=== PATIENT | female | born 1960 | race Two or more races ===

== ENCOUNTER 2021-03-06 11:08 | Outpatient (REF) | payer OTHER, SELFPAY ==
[2021-03-06 12:19] LABS: Binax Internal Control QC Valid; Binax Now Covid-19 Ag Positive (Negative)
== END 2021-03-06 11:09 | disposition home or self-care (01) ==
LOC: HO.LAB 11:08
PROVIDERS: Visit Provider Internal Medicine
DX: Z20.822 Contact with and (suspected) exposure to COVID-19 (principal)
CPT/HCPCS: C9803

== ENCOUNTER 2021-03-14 07:50 | Outpatient (REF) | payer OTHER, SELFPAY ==
[2021-03-14 08:09] LABS: COVID-19 Test Positive (Negative); IDNOW Serial# 16C4AD1C
== END 2021-03-14 07:51 | disposition home or self-care (01) ==
LOC: HO.LAB 07:50
PROVIDERS: Visit Provider Internal Medicine
DX: Z20.822 Contact with and (suspected) exposure to COVID-19 (principal)
CPT/HCPCS: 87635; C9803

== ENCOUNTER 2021-07-30 07:10 | Outpatient (REF) | payer OTHER, SELFPAY ==
[2021-07-30 12:07] LABS: Alanine Aminotransferase 21 U/L (0-31); Anion Gap 12 (12-20); Aspartate Amino Transferase 18 U/L (5-31); Blood Urea Nitrogen 20 mg/dL (9-16); Carbon Dioxide 25 mmol/L (22-29); Chloride 106 mmol/L (96-108); Cholesterol 179 mg/dL; Estimated Glomerular Filt Rate > 60; Glucose Fasting 104 mg/dL (60-99); HDL Cholesterol 51 mg/dL; LDL Cholesterol Calculated 99 mg/dl; Potassium 4.3 mmol/L (3.3-5.1); Sodium 139 mmol/L (135-145); Triglycerides 148 mg/dL
[2021-07-30 12:10] LABS: HBS Num1 23.53 mIU/mL (0-7.99); ~Hepatitis B Surface Antibody REACTIVE (Nonreactive)
[2021-07-30 12:11] LABS: Vitamin D 25-OH Total 32.1 ng/mL (>30)
[2021-08-01 01:10] LABS: Rubella IgG Antibody 1.63 Index; Rubeola IgG (Measles) >300.00 AU/mL
[2021-08-01 01:17] LABS: Varicella IgG Antibody >4000.00 index
[2021-08-02 08:57] LABS: TS Negative Control Passed; TS Panel A 0; TS Panel B 0; TS Positive Control Passed; TSpotTB Negative (Negative)
== END 2021-07-30 07:11 | disposition home or self-care (01) ==
LOC: HO.HMGCLDS 07:10
PROVIDERS: PCP Internal Medicine; Visit Provider Internal Medicine
DX: Z00.01 Encounter for general adult medical examination with abnormal findings (principal); Z11.1 Encounter for screening for respiratory tuberculosis
CPT/HCPCS: 36415; 80048; 80061; 82306; 84450; 84460; 86481; 86706; 86735; 86762; 86765; 86787

== ENCOUNTER 2021-08-20 16:26 | Outpatient (REF) | payer OTHER, SELFPAY ==
--- NOTE | ~2021-08-20 | US_ITS ---
EXAMINATION: US ABDOMEN COMPLETE CLINICAL INFORMATION: Right upper quadrant pain. COMPARISON: None TECHNIQUE: Real-time imaging of the abdominal viscera., Doppler exam used FINDINGS: PANCREAS: Not seen due to bowel gas. ABDOMINAL AORTA: Portions of the mid abdominal aorta are normal. The proximal and distal aorta is obscured by bowel gas. INFERIOR VENA CAVA: Visualized portions are normal. LIVER: Mild diffuse increased echogenicity of liver parenchyma consistent with fatty change. The liver is normal in size. The liver contour is normal. No focal hepatic lesion. There is no intrahepatic biliary duct dilatation seen. GALLBLADDER: Normal. The gallbladder is physiologically distended without evidence of stones, sludge, polyps, wall thickening or pericholecystic fluid. COMMON BILE DUCT: Normal in caliber measuring 0.4 cm in diameter. RIGHT KIDNEY: Normal. No hydronephrosis. No renal calculi or suspicious focal parenchymal lesions. Anechoic cyst upper pole measuring 1.8 cm. No follow-up imaging is recommended for simple renal cyst. The kidney measures 9.1 cm in maximum dimension. LEFT KIDNEY: Mild fullness of the left renal pelvis without dilatation of the calyces. There is no renal calculi or suspicious focal parenchymal lesions. The kidney measures 9.8 cm in maximum dimension. SPLEEN: Normal. The spleen measures 10.3 cm in maximum dimension. FREE FLUID: None. US/US abdomen complete IMPRESSION: No acute abnormality. No gallstone or acute change of gallbladder wall. No bile duct dilatation. Mild diffuse increased echogenicity of liver parenchyma due to fatty change.
== END 2021-08-20 16:27 | disposition home or self-care (01) ==
LOC: HO.US 16:26
PROVIDERS: Visit Provider Internal Medicine
DX: R10.11 Right upper quadrant pain (principal)
CPT/HCPCS: 76700

== ENCOUNTER 2021-10-22 13:43 | Emergency (ER) | payer OTHER, SELFPAY ==
--- NOTE | ~2021-10-22 | CT_ITS ---
EXAMINATION: CT HEAD WITHOUT CONTRAST CLINICAL INFORMATION: Fall with head strike COMPARISON: None TECHNIQUE: Contiguous axial imaging was performed from the skull base to vertex without intravenous administration of contrast. This CT examination was performed using dose optimization techniques as appropriate, variously including the following: *Automated exposure control *Adjustment of mA and/or kV according to patient size (this includes techniques or standardized protocols for targeted exams where dose is matched to indication/reason for exam; i.e. extremities or head) *Use of iterative reconstruction technique DLP: 516 mGy-cm FINDINGS: There is no evidence of acute intracranial hemorrhage or territorial infarction. No abnormal mass-effect or midline shift is seen. Lam to white matter differentiation is well preserved. No extra-axial fluid collections are identified. The ventricles are normal in size. There is no abnormal attenuation within the brain parenchyma. Frontal scalp soft tissue swelling is noted. No acute fracture is seen. There is partial opacification of the left sphenoid sinus and right maxillary sinus. The mastoid air cells are well-aerated. CT/CT head/brain wo IV con IMPRESSION: No acute intracranial pathology. Frontal scalp soft tissue swelling.
[2021-10-22 13:59] VITALS: BP 105/55; PULSE 76; RESP 18; TEMP 530.9; TEMP 987.7; O2SAT 96; BMI 25.4
--- NOTE | 2021-10-22 16:16 | ED.FALL ---
HPI - Fall General Chief Complaint: Fall Stated Complaint: fell at work and hit head Time Seen by Provider: 10/22/21 14:43 Source: patient Mode of arrival: ambulatory Limitations: no limitations History of Present Illness HPI Narrative: 7-year-old female presents to the ER for evaluation of a head injury. She tripped and fell on a cord at work and fell and hit her head on a cement floor. She did not lose consciousness, it was witnessed by her coworkers. She sustained a small laceration to the lower portion of her forehead in the middle. No active bleeding. She also had immediate bruising to the middle of her forehead where she struck her head. She reports a diffuse, throbbing headache. She is not on anticoagulation. No other injuries. She denies any nausea, vomiting, confusion, lethargy. MD complaint: fall Onset (ago): hour(s) Fall from: standing Fall witnessed: yes, by bystander Place fall occurred: work Loss of consciousness: none Prolonged down time: no Context: tripped/slipped Location of injury: face Severity: moderate Severity scale (1-10): 5 Quality: aching Associated symptoms (after fall): headache Related Data Home Medications Medication Instructions Recorded Confirmed clonazepam 0.5 mg tablet 0.5 mg PO DAILY PRN anxiety attack 03/26/21 03/26/21 zolpidem 10 mg tablet 10 mg PO BEDTIME PRN 03/26/21 03/26/21 fluoxetine 20 mg capsule 60 mg PO QAM 07/25/21 Previous Rx's Medication Instructions Recorded ibuprofen 400 mg tablet 400 mg PO BID PRN pain #60 tabs 03/26/21 omeprazole 20 mg capsule,delayed 20 mg PO DAILY #90 caps 10/01/21 release ibuprofen 600 mg tablet 600 mg PO Q8H PRN pain #10 tabs 10/22/21 Allergies Allergy/AdvReac Type Severity Reaction Status Date / Time acetaminophen [From Percocet] AdvReac Gastrointestinal Verified 08/19/21 16:44 Upset oxycodone [From Percocet] AdvReac Gastrointestinal Verified 08/19/21 16:44 Upset Review of Systems Review of Systems: Constitutional: No Fever, No Chills ENT/Mouth: No sore throat, No dental trauma, no epistaxis Cardiovascular: No Chest Pain, No SOB Respiratory: No Cough, No Sputum Gastrointestinal: No Nausea, No Vomiting, No abdominal Pain Musculoskeletal: No joint pain, No Myalgias Skin: No Skin Lesions, No rash Neuro: No Weakness, No Numbness, No Dizziness, + Headache Heme/Lymph: + Bruising, No Lymphadenopathy PMFSH Past Medical History Medical History Chronic GERD Chronic insomnia Depression, major, recurrent, in partial remission Left femoral shaft fracture Trigger finger, left middle finger Family History Family History Brother Substance use disorder Daughter Mental health disorder Social History Social History Housing: House Patient Tobacco Use Status: Former Tobacco user e-Cigarette/Vaping Use: Never Used Advance Directives: No Advance Directives Information Provided: No service: No Current occupational status: employed Cognitive needs: No Hearing needs: No Vision needs: Yes Physical Exam Vital Signs: Vital Signs: Last Vital Signs Temp 987.7 F H 10/22/21 13:59 Pulse 67 10/22/21 16:41 Resp 12 10/22/21 16:41 BP 135/75 10/22/21 16:41 Pulse Ox 95 10/22/21 16:41 O2 Del Method 10/22/21 16:41 BMI result Body Mass Index 25.4 Appearance: Alert. Oriented X3. No acute distress. HEENT: Normal palpation of the scalp. Forehead with a moderate-sized, approximately 4 cm circular hematoma, tender. EOMI. Normal appearing tympanic membranes. Nose is normal in appearance, no septal hematoma. Tiny, 0.5cm laceration on the middle forehead below the hematoma, very superficial, no active bleeding. CVS: Normal heart rate and rhythm. Pulses normal. Respiratory: No respiratory distress. Skin: Skin warm and dry. Normal skin color. Normal skin turgor. No rashes. Extremities: Atraumatic, normal inspection. Neuro: Oriented X 3. No motor deficit. No sensory deficit. Steady gait Course Course Course Narrative: 7-year-old female presents to the ER for evaluation after she tripped and fell, hitting her head on the floor at work. She did not lose consciousness. She sustained a small laceration to her forehead and has a visible hematoma on examination. She is neurologically intact. Will get CT scan for further evaluation. Tylenol ordered for headache. Reevaluation(s) Reevaluation #1: CT scan without fractures, no ICH. Visible scalp frontal hematoma on CT. We discussed the results, management. She is stable for discharge home. Return precautions discussed. Discharge Plan Discharge Clinical Impression: Hematoma of frontal scalp Patient Disposition: Home, Self-Care Instructions: Scalp Contusion in Adults (ED) Additional Instructions: Your CT scan did not show any bleeding or any broken bones. Use ice to the area several times per day. Take the prescribed ibuprofen as needed for pain and headaches. Recommend around the clock Tylenol 9 hertz 25 mg every 6 hours Rest, no strenuous activity. Follow-up with her primary care doctor. If you develop new or worsening symptoms call 911 or come back to the ER for further evaluation. Prescriptions: New ibuprofen 600 mg tablet 600 mg PO Q8H PRN (Reason: pain) Qty: 10 0RF No Action omeprazole 20 mg capsule,delayed release(DR/EC) 20 mg PO DAILY Qty: 90 0RF clonazepam 0.5 mg tablet 0.5 mg PO DAILY PRN (Reason: anxiety attack) zolpidem 10 mg tablet 10 mg PO BEDTIME PRN ibuprofen 400 mg tablet 400 mg PO BID PRN (Reason: pain) Qty: 60 0RF fluoxetine 20 mg capsule 60 mg PO QAM Referrals: [facility] [Provider Group] Stand Alone Forms: Work/School Release
[2021-10-22 16:41] VITALS: BP 135/75; PULSE 67; RESP 12; O2SAT 95
[2021-10-22] MEDS: Acetaminophen 325 MG TABLET 975 MG PO (16:44)
--- NOTE | 2021-10-22 16:45 | PC.NURSE ---
Patient states she takes tylneol at home. Provider says to give tylenol despite allergy in chart
== END 2021-10-22 17:26 | disposition home or self-care (01) ==
PROVIDERS: Emergency Provider Emergency Medicine; PCP Internal Medicine
DX: S00.03XA Contusion of scalp, initial encounter (principal); S01.81XA Laceration without foreign body of other part of head, initial encounter; W01.198A Fall on same level from slipping, tripping and stumbling with subsequent striking against other object, initial encounter; Y93.89 Activity, other specified; Y92.218 Other school as the place of occurrence of the external cause; Y99.0 Civilian activity done for income or pay
CPT/HCPCS: 70450; 99283; 99284

== ENCOUNTER → 2021-10-25 10:44 | Outpatient (BNVA) | payer OTHER, SELFPAY | PROVIDERS: PCP Internal Medicine; Visit Provider Internal Medicine | DX: M25.511 Pain in right shoulder (principal); S06.0X9A Concussion with loss of consciousness of unspecified duration, initial encounter; W01.198A Fall on same level from slipping, tripping and stumbling with subsequent striking against other object, initial encounter | CPT/HCPCS: 73030; 73060; 99203 ==

== ENCOUNTER → 2021-11-01 08:06 | Outpatient (BNVA) | payer OTHER, SELFPAY | PROVIDERS: PCP Internal Medicine; Visit Provider Internal Medicine | DX: S06.0X9D Concussion with loss of consciousness of unspecified duration, subsequent encounter (principal); S43.401D Unspecified sprain of right shoulder joint, subsequent encounter; W01.198D Fall on same level from slipping, tripping and stumbling with subsequent striking against other object, subsequent encounter | CPT/HCPCS: 99214 ==

== ENCOUNTER → 2021-11-08 08:06 | Outpatient (BNVA) | payer OTHER, SELFPAY | PROVIDERS: PCP Internal Medicine; Visit Provider Internal Medicine | DX: M24.811 Other specific joint derangements of right shoulder, not elsewhere classified (principal) | CPT/HCPCS: 99213 ==

== ENCOUNTER → 2021-11-15 08:02 | Outpatient (BNVA) | payer OTHER, SELFPAY | PROVIDERS: PCP Internal Medicine; Visit Provider Internal Medicine | DX: S06.0X9D Concussion with loss of consciousness of unspecified duration, subsequent encounter (principal); W01.198D Fall on same level from slipping, tripping and stumbling with subsequent striking against other object, subsequent encounter; M24.811 Other specific joint derangements of right shoulder, not elsewhere classified | CPT/HCPCS: 99213 ==

== ENCOUNTER 2021-11-20 07:37 | Outpatient (REF) | payer OTHER, SELFPAY ==
--- NOTE | ~2021-11-20 | XR_ITS ---
EXAMINATION: XR SHOULDER, RIGHT CLINICAL INFORMATION: Right shoulder pain COMPARISON: 10/25/2021 TECHNIQUE: Three views of the right shoulder. FINDINGS: No fracture or dislocation. The glenohumeral joint is well aligned. The joint space is maintained. The acromioclavicular joint is intact. The visualized lung is clear. The visualized ribs are intact. XR/XR shoulder RT min 2V IMPRESSION: Normal right shoulder.
== END 2021-11-20 07:38 | disposition home or self-care (01) ==
LOC: HO.HOSX 07:37
PROVIDERS: Visit Provider Physician Assistant
DX: M75.81 Other shoulder lesions, right shoulder (principal)
CPT/HCPCS: 73030; 99202

== ENCOUNTER 2021-11-21 10:00 | Outpatient (RCR) | payer OTHER, SELFPAY ==
--- NOTE | 2021-11-06 15:51 | MHC.PT.EP ---
[facility] [place] [facility] Office [place] Office [place] Office [address] Kofi Cedeno [address] [phone] F: [phone] F: [phone] F: [phone] F: [phone] Physical Therapy Plan of Care Date of Evaluation: Date of Surgery: NA Diagnosis: R shoulder RTC injury Assessment: Cari is a 61 year old female who is referred to PT for R shoulder RTC injury . She reports of injuring her R shoulder due to a fall at work about 2 weeks back. She fell on her R shoulder. On PT examination she presented with 8/10 pain in R shoulder at rest and 10/10 with movements, TTP over R UT, R shoulder joint line, medial border of R scapula, decreased R shoulder ROM, decreased R shoulder and scap strength and altered posture. 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 She would benefit from skilled PT to address the aforementioned impairments and improve tolerance to functional activities. Frequency and Duration: The patient will be seen 2/week for 6 weeks Short Term Goals: 1. Pt will have 50% decrease in pain which will enable her to sleep through the night in 2 weeks. 2. Pt will be able to move R shoulder through all planes of motion which will enable her to dress her upper body in 3 weeks. Chcf Goals: 1. Pt will demonstrate an increase in muscle strength by 1 grade which will enable her to return to IADLS like cleaning and cooking in 5 weeks. 2. Pt will be independent with HEP and return to PLOF- teaching without pain in 6 weeks. Treatment Plan: Modalities to reduce pain, spasms and effusion. Manual therapy to restore motion and function. Therapeutic exercise to improve strength and flexibility. Neuromuscular re-education for posture and balance. Therapeutic activities to return to functional activities of daily living. Electronically signed by: Marsha Whittington PT DPT Please sign and return to therapist. Thank you for your referral.
--- NOTE | 2021-12-09 08:42 | MHC.PT.DC ---
[facility] Office [place] Office [place] Office [address] Kofi Cedeno [address] [phone] F: [phone] F: [phone] F: [phone] F: [phone] Physical Therapy Discharge Report Diagnosis: R shoulder RTC injury Date of Surgery: NA Date of Evaluation: 11/06/21 Date of Discharge: 12/09/21 Treatments to Date: 4 Cancellations to Date: 3 No Shows to Date: 1 Discharge Status: Improved Function Independent with HEP Patient Elected to Stop Discharge Summary: Pt RESPONDED WELL TO PT INTERVENTION FOR HER Rt RTC/ SH INJURY- SHE IS INDEP W HEP AND SELF-POSTURAL CORRECTION- SHE HAS BEEN CLEARED TO RTW. Pt STATED HER PAIN HAS RESOLVED AND SHE IS INDEP W HER HEP AND HAS A DECENT AWARENESS RE THE IMPORTANCE OF HEP COMPLIANCE - Pt HAS NOT ATTENDED PT APPTS SINCE RTW. Electronically signed by: Maddie Alonzo,PT Please sign and return to therapist. Thank you for your referral.
== END 2021-12-09 08:44 | disposition home or self-care (01) ==
LOC: HO.PT 10:00
PROVIDERS: PCP Internal Medicine; Visit Provider Internal Medicine
DX: S46.001D Unspecified injury of muscle(s) and tendon(s) of the rotator cuff of right shoulder, subsequent encounter (principal)
CPT/HCPCS: 97110; 97112; 97140; 97161

== ENCOUNTER → 2021-11-22 08:07 | Outpatient (BNVA) | payer OTHER, SELFPAY | PROVIDERS: PCP Internal Medicine; Visit Provider Internal Medicine | DX: S06.0X9D Concussion with loss of consciousness of unspecified duration, subsequent encounter (principal); W01.198D Fall on same level from slipping, tripping and stumbling with subsequent striking against other object, subsequent encounter | CPT/HCPCS: 99213 ==

== ENCOUNTER 2021-12-18 15:55 | Outpatient (REF) | payer OTHER, SELFPAY ==
[2021-12-18 16:59] LABS: Lipase 38 U/L (8-78)
[2021-12-20 14:52] LABS: Transglutaminase Ab IgG <1.0 U/mL; Transglutaminase IgA <1.0 U/mL
== END 2021-12-18 15:56 | disposition home or self-care (01) ==
LOC: HO.LAB 15:55
PROVIDERS: PCP Internal Medicine; Visit Provider Nurse Practitioner Family
DX: R10.9 Unspecified abdominal pain (principal)
CPT/HCPCS: 36415; 83690; 86364

== ENCOUNTER 2021-12-19 07:31 | Outpatient (REF) | payer OTHER, SELFPAY ==
[2021-12-28 16:51] LABS: Pancreatic Elastase-1 >500 mcg/g
== END 2021-12-19 07:32 | disposition home or self-care (01) ==
LOC: HO.LNP 07:31
PROVIDERS: Visit Provider Nurse Practitioner Family
DX: R10.9 Unspecified abdominal pain (principal); K21.9 Gastro-esophageal reflux disease without esophagitis
CPT/HCPCS: 82656; 87338

== ENCOUNTER 2022-05-04 07:47 | Emergency (ER) | payer OTHER, SELFPAY ==
--- NOTE | ~2022-05-04 | XR_ITS ---
EXAMINATION: XR CHEST CLINICAL INFORMATION: Chest pain COMPARISON: None TECHNIQUE: 2 views of the chest were obtained. FINDINGS: No significant abnormality is noted involving the heart, lungs, mediastinum, bony thorax or soft tissues. XR/XR chest 2V IMPRESSION: Unremarkable examination.
[2022-05-04 07:50] VITALS: BP 135/68; PULSE 80; RESP 18; TEMP 37.4; O2SAT 96; BMI 23.8
--- NOTE | 2022-05-04 08:42 | ED.URI ---
HPI - URI/Sore Throat General Chief Complaint: Upper Respiratory Symptoms Stated Complaint: Chest pain/Fever/Cough Time Seen by Provider: 05/04/22 08:03 Source: patient Mode of arrival: ambulatory History of Present Illness HPI Narrative: 62-year-old female presents with headache, fevers, chills, ear pain and throat pain and persistent cough since . Patient states that she has had increasing chest pain with coughing and states that she hears herself wheezing . Related Data Home Medications Medication Instructions Recorded Confirmed zolpidem 10 mg tablet 10 mg PO BEDTIME PRN 03/26/21 03/26/21 fluoxetine 20 mg capsule 60 mg PO QAM 07/25/21 amitriptyline 25 mg tablet 25 mg PO BEDTIME 11/20/21 clonazepam 0.5 mg tablet 0.5 mg PO DAILY PRN 02/05/22 Previous Rx's Medication Instructions Recorded esomeprazole magnesium 40 mg 40 mg PO DAILY #90 caps 12/17/21 capsule,delayed release (Nexium) famotidine 40 mg tablet 40 mg PO BEDTIME #90 tabs 12/17/21 sennosides 8.6 mg tablet (Natural 17.2 mg PO BEDTIME constipation 02/05/22 Senna Laxative) #180 tabs doxycycline monohydrate 100 mg 100 mg PO BID 5 days #10 caps 05/04/22 capsule Allergies Allergy/AdvReac Type Severity Reaction Status Date / Time oxycodone [From Percocet] AdvReac Gastrointestinal Verified 02/05/22 13:17 Upset Review of Systems Review of Systems: Pertinent positives and negatives as stated in HPI [facility] Past Medical History Source: nursing notes reviewed Medical History Chronic GERD Chronic insomnia Depression, major, recurrent, in partial remission Left femoral shaft fracture Trigger finger, left middle finger Surgical History History of esophagogastroduodenoscopy (EGD) Hx of colonoscopy Family History Family History Brother Substance use disorder Daughter Mental health disorder Social History Social History Housing: House Patient Tobacco Use Status: Former Tobacco user Smoked in Last 30 Days: No e-Cigarette/Vaping Use: Never Used Use of substances other than those prescribed or required for medical reasons: No Advance Directives: No Advance Directives Information Provided: Yes service: No Current occupational status: employed 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 GENERAL: Well developed, well nourished, in no acute distress. HEAD: Normocephalic/atraumatic EYES: PERRLA, EOMI EARS: Ext canals without abnormality, TMs non-bulging and non-erythematous NOSE: Nares patent bilateral OROPHARYNX: no oral lesions noted, posterior pharynx clear but erythematous without noted tonsillar enlargement/erythema/exudates NECK: Supple, no adenopathy LUNGS: Good inspiratory effort, coarse rhonchi and crackles noted without expiratory wheeze, discomfort noted on deep inspiration. SpO2<96> CARDIOVASCULAR: Regular rate and rhythm without noted murmurs ABDOMEN: Soft, non-tender, non-distended with bowel sounds. MUSCULOSKELETAL: No tenderness, deformities, or effusions noted on gross inspection. EXTREMITIES: No cyanosis, clubbing or edema. SKIN: Inspection of the skin reveals no rashes NEUROLOGIC: Alert and oriented x 4. Strength and sensation to light touch were grossly intact x 4. Medical Decision Making Medical Decision Making [facility] Narrative: 0845: 62-year-old female with persistent fevers and chills since and cough related chest pain, will rule out pleurisy verses infection I reviewed all investigations, clinically patient has pneumonia and although the chest x-ray is being read as negative patient has rhonchi and crackles and I will empirically treat her for pneumonia. Patient will go home on twice daily doxycycline for 5 days. Differential Diagnosis please see the discussion above Lab Data Labs: Lab Results 05/04/22 Range/Units 08:00 Influenza Type A (PCR) NEGATIVE (Negative) Influenza Type B (PCR) NEGATIVE (Negative) RSV RNA Qual (PCR) NEGATIVE (Negative) SARS-CoV-2 RNA (RT-PCR) NEGATIVE (Negative) Discharge Plan Discharge Clinical Impression: Community acquired pneumonia Patient Disposition: Home, Self-Care Instructions: Community Acquired Pneumonia (ED) Additional Instructions: 1. Resume all home medications as prescribed. Your being prescribed an antibiotic for pneumonia, complete the entire course. 2. Tylenol 1000 mg, orally, every 6 hours as needed for pain control and temperatures greater than 100.4. Do not exceed 4000 mg within 24 hours. 3. Ibuprofen 400 mg, orally with milk or food, every 6 hours as needed for pain control and temperatures greater than 100.4. Please take this medication with the Tylenol for improved symptom relief. 4. Follow-up with your primary care provider in the morning. Return to the ER for any worsening symptoms. Prescriptions: New doxycycline monohydrate 100 mg capsule 100 mg PO BID 5 Days Qty: 10 0RF No Action zolpidem 10 mg tablet 10 mg PO BEDTIME PRN fluoxetine 20 mg capsule 60 mg PO QAM amitriptyline 25 mg tablet 25 mg PO BEDTIME esomeprazole magnesium [Nexium] 40 mg capsule,delayed release(DR/EC) 40 mg PO DAILY Qty: 90 5RF famotidine 40 mg tablet 40 mg PO BEDTIME Qty: 90 3RF clonazepam 0.5 mg tablet 0.5 mg PO DAILY PRN sennosides [Natural Senna Laxative] 8.6 mg tablet 17.2 mg PO BEDTIME Qty: 180 3RF Referrals: Kassy Anna MD [Primary Care Provider] -
[2022-05-04 08:44] LABS: Influenza A PCR NEGATIVE (Negative); Influenza B PCR NEGATIVE (Negative); Resp Syncy Virus RNA Qual PCR NEGATIVE (Negative); SARS COV2 PCR INHOUSE NEGATIVE (Negative)
[2022-05-04 09:39] VITALS: BP 114/63; PULSE 78; RESP 20; TEMP 37.6; O2SAT 95
== END 2022-05-04 09:53 | disposition home or self-care (01) ==
PROVIDERS: Emergency Provider Student in an Organized Health Care Education/Training Program; PCP Internal Medicine
DX: J18.9 Pneumonia, unspecified organism (principal); R50.9 Fever, unspecified; R05.9 Cough, unspecified; R07.89 Other chest pain; Z20.822 Contact with and (suspected) exposure to COVID-19; Z20.828 Contact with and (suspected) exposure to other viral communicable diseases; Z87.891 Personal history of nicotine dependence; Z79.899 Other long term (current) drug therapy
CPT/HCPCS: 0241U; 71046; 99283; 99284

== ENCOUNTER → 2022-06-13 15:58 | Outpatient (BNVA) | payer OTHER, SELFPAY | PROVIDERS: PCP Internal Medicine; Visit Provider Nurse Practitioner Family | DX: Z13.89 Encounter for screening for other disorder (principal) ==

== ENCOUNTER → 2022-07-09 07:57 | Outpatient (REF) | payer OTHER, SELFPAY ==
--- NOTE | ~2022-07-09 | NM_ITS ---
EXAMINATION: RADIONUCLIDE SOLID FOOD GASTRIC EMPTYING 4-HOUR STUDY CLINICAL INFORMATION: There is esophageal reflux disease without esophagitis. COMPARISON: No previous gastric emptying study is available for comparison. TECHNIQUE: A standard meal consisting of 4 oz of Egg Beaters brand tagged with 840 microcuries Tc-99m Sulfur Colloid, 8 oz water and 2 slices of toast with jelly was administered orally to the patient. Images were obtained using a dual head gamma camera in the anterior and posterior projections over of the stomach immediately post ingestion and at hourly intervals up to 3 hours post ingestion. Images were not obtained at 4 hours due to the minimal retention at 3 hours. The anterior and posterior counts at each time interval were averaged using the geometric mean and expressed as percentage of the immediate post ingestion counts. FINDINGS: There is good visualization of activity in the stomach immediately post ingestion. As the study progresses, there is good clearance of activity from the stomach and visualization of progressively increasing small bowel activity. By the end of the study, there is almost no retention noted in the stomach. Retention in the stomach at each time interval was: 1 hour 67% (normal 37%-90%) 2 hours 35% (normal 30%-60%) 3 hours 4% 4 hours (Not Obtained) (normal 0%-10%) NM/NM gastric emptying study IMPRESSION: Normal solid food gastric emptying study.
== END ==
LOC: HO.NUCMED 07:57
PROVIDERS: PCP Internal Medicine; Visit Provider Nurse Practitioner Family
DX: K21.9 Gastro-esophageal reflux disease without esophagitis (principal)
CPT/HCPCS: 78264; A9541

== ENCOUNTER 2022-08-05 07:46 | Outpatient (REF) | payer OTHER, SELFPAY ==
[2022-08-05 11:57] LABS: Alanine Aminotransferase 22 U/L (0-31); Anion Gap 13 (12-20); Aspartate Amino Transferase 22 U/L (5-31); Blood Urea Nitrogen 18 mg/dL (9-16); Calcium 9.4 mg/dL (8.4-10.2); Carbon Dioxide 27 mmol/L (22-29); Chloride 105 mmol/L (96-108); Cholesterol 189 mg/dL; Estimated Glomerular Filt Rate > 60; Glucose Fasting 94 mg/dL (60-99); HDL Cholesterol 58 mg/dL; LDL Cholesterol Calculated 109 mg/dl; Potassium 4.6 mmol/L (3.3-5.1); Sodium 140 mmol/L (135-145); Triglycerides 112 mg/dL
[2022-08-05 12:04] LABS: Vitamin D 25-OH Total 50.6 ng/mL (>30)
== END 2022-08-05 07:47 | disposition home or self-care (01) ==
LOC: HO.HMGCLDS 07:46
PROVIDERS: PCP Internal Medicine; Visit Provider Internal Medicine
DX: Z00.01 Encounter for general adult medical examination with abnormal findings (principal); F33.41 Major depressive disorder, recurrent, in partial remission; K21.9 Gastro-esophageal reflux disease without esophagitis
CPT/HCPCS: 36415; 80048; 80061; 82306; 84450; 84460

== ENCOUNTER 2022-09-05 15:04 | Outpatient (AMB) | payer OTHER, SELFPAY ==
--- NOTE | 2022-09-05 15:18 | A.OFFVIS_ITS ---
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 Discussed with patient avoiding dietary triggers and late night snacking. Staying upright for minimum 3 hours after meals discussed with patient. Early satiety Patient reports to be feeling bloated and feeling full very quickly a when the eating or drinking. Will send her for gastric emptying study. Patient was encouraged to eat small meals and more often Postprandial abdominal bloating Postprandial abdominal bloating. Patient reports that she is moving her bowels better now that she is taking Senokot. Patient was encouraged to avoid food that could cause to bloating. Low FODMAP diet discussed with patient. List of food recommended as well as list of food to avoid given to patient. I will see patient in 3 months, sooner on as needed basis. Patient is agreeable to this plan and verbalizes understanding of instructions. She was given the opportunity to ask questions and all questions answered. ? Thank you for allowing me to participate in her care Plan Orders Orders NM gastric emptying study 06/13/22 K21.9 TODAY'S VISIT: Today for follow-up. Patient reports since last time I have seen her she has been doing better. Patient was switched from pantoprazole to Nexium and is doing well. Denies any dyspepsia, dysphagia or odynophagia. Patient no longer needs famotidine she can take it on as needed basis. Gastric emptying study was normal. Patient reports that she is moving her bowels better now that she is taking Senokot. Patient denies any melena, hematochezia, unintentional weight loss or ribbon like stools. Patient denies any other GI concerning symptoms. 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 Cognitive needs: No Hearing needs: No Vision needs: Yes Review of Systems Const Denies weight gain and Denies weight loss ENT Reports no additional complaints, Denies dysphagia and Denies odynophagia Card Reports no additional complaints Resp Reports no additional complaints GI Denies abdominal pain, Denies belching, Denies melena, Denies bloating, Denies change in bowel habits, Denies dysphagia, Denies excessive flatus, Denies dyspepsia, Denies heartburn, Denies diarrhea, Denies loose stools, Denies nausea, Denies odynophagia and Denies vomiting Musc Reports no additional complaints Neuro Reports no additional complaints Psych Reports no additional complaints Endo Reports no additional complaints Physical Exam Vital Signs: Last Vital Signs Pulse 62 09/05/22 15:19 BP 124/67 09/05/22 15:19 BMI result Body Mass Index 23.2 Const General: healthy appearing, no acute distress and well developed Nutritional Appearance: well nourished Orientation/consciousness: patient oriented x3 HEENT Head: Yes normal to inspection, Yes normocephalic and Yes atraumatic Face and sinus: Yes normal facial exam Mouth: Normal oral and palatal mucosa present Throat: Yes posterior oropharynx normal, Yes tonsils normal and Yes uvula midline Eyes General: appearance normal, both eyes and all related structures Neck Neck: Yes normal visual inspection, Yes full ROM and Yes trachea midline Thyroid: Thyroid normal Resp Effort & Inspection: normal respiratory effort, able to speak in complete sentences, no tracheal deviation and symmetric chest movement Auscultation: clear to auscultation bilaterally Cardio Rate: regular rate Heart sounds: S1 normal heart sound present and S2 normal heart sound present GI Inspection: Yes normal to inspection and No distended Palpation (GI): Soft to palpation, not firm, nontender and No hepatosplenomegaly present Auscultation: normal bowel sounds General: Yes no CVA tenderness Back/Spine/Pelvis Back: no CVA tenderness Skin General skin exam: elasticity normal, turgor normal and dry skin Neuro General: patient oriented x3 Psych Appearance: grossly normal Mental Status: mental status grossly normal Speech and movement: Normal speech and movement present Affect: normal affect Results Reviewed Results Reviewed: GASTRIC EMPTYING STUDY 07/09/2022 FINDINGS: There is good visualization of activity in the stomach immediately post ingestion. As the study progresses, there is good clearance of activity from the stomach and visualization of progressively increasing small bowel activity. By the end of the study, there is almost no retention noted in the stomach. ? Retention in the stomach at each time interval was: 1 hour 67% (normal 37%-90%) 2 hours 35% (normal 30%-60%) 3 hours 4% 4 hours (Not Obtained) (normal 0%-10%) NE/NE gastric emptying study IMPRESSION: Normal solid food gastric emptying study. Assessment & Plan Assessment & Plan (1) Chronic GERD: Code(s): K21.9 - Gastro-esophageal reflux disease without esophagitis Plan: Patient was encouraged to continue Nexium. Patient will continue to avoid dietary triggers and late night snacking. Staying upright for minimum 3 hours after meals discussed with patient. (2) Postprandial abdominal bloating: Code(s): R14.0 - Abdominal distension (gaseous) Plan: Occasional postprandial abdominal bloating. Discussed with patient following FODMAP diet as much as she can. Importance of emptying her bowels better discussed with patient. Patient was encouraged to drink plenty fluids (3) Constipation: Code(s): K59.00 - Constipation, unspecified Qualifiers: Constipation type: slow transit constipation Qualified Code(s): K59.01 - Slow transit constipation Plan: Continue Senokot. Increase fluid intake and activity to promote better bowel motility. Patient will follow-up with the office in 6 months we will discuss her going for colonoscopy, sooner on as needed basis. Patient is agreeable to this plan and verbalizes understanding of instructions. She was given the opportunity to ask questions and all questions answered. Thank you for allowing me to participate in her care Medications: Refilled esomeprazole magnesium (Nexium) 40 mg PO DAILY 90 caps 5RF K21.9 - Gastro- esophageal reflux disease without esophagitis sennosides (Natural Senna Laxative) 17.2 mg (2 x 8.6 mg) PO BEDTIME 180 tabs 3RF constipation K59.00 - Constipation, unspecified Coding Level of Care Code Est Pt Level 3 (23964) Diagnoses Chronic GERD K21.9 Postprandial abdominal bloating R14.0 Constipation K59.01 Constipation type: slow transit constipation Time Spent (min) 30 Comment 20 minutes spent with patient and additional 10 minutes spent reviewing her records
[2022-09-05 15:19] VITALS: BP 124/67; PULSE 62; BMI 23.2
== END 2022-09-05 15:38 | disposition home or self-care (01) ==
PROVIDERS: PCP Internal Medicine; Visit Provider Nurse Practitioner Family
DX: K21.9 Gastro-esophageal reflux disease without esophagitis (principal); R14.0 Abdominal distension (gaseous); K59.01 Slow transit constipation
CPT/HCPCS: 99213

== ENCOUNTER → 2022-09-05 15:04 | Outpatient (BNVA) | payer OTHER, SELFPAY | PROVIDERS: PCP Internal Medicine; Visit Provider Nurse Practitioner Family ==

== ENCOUNTER 2022-09-23 08:05 | Outpatient (AMB) | payer OTHER, SELFPAY ==
--- NOTE | 2022-09-23 08:07 | AM.OFFWIN_ITS ---
Intake Vital Signs 09/23/22 08:10 BP 112/76 Blood Pressure Location Rt brachial Position Sitting Pulse 66 Pulse Source Pulse Oximeter Pulse Oximetry (%) 96 Oxygen Delivery Method Room Air Intake Visit Reasons: EP Pain Ribs LT/Diff Breathing Intake Note: Patient here because she states she had a friend hug her very tight on thursday and heard a crack and since then she has been having left rib pain when moving and breathing. Patient Tobacco Use Status: Former Tobacco user Allergies oxycodone [From Percocet] Adverse Reaction (Verified 09/23/22 08:10) Gastrointestinal Upset Do you need a note to return to daycare/school/sports/work: Yes HPI EP Pain Ribs LT/Diff Breathing 2 HPI Details 62-year-old female presents to the office for a sick visit. Patient is feeling a sharp pain on the left side since 2 days. Patient reports that she was hugged tightly and symptoms started later. She felt a crack and then is having difficulty taking a deep breath. No fevers or chills. 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 Tenderness on the left side of the chest along the Coastal margins of the ribs. Resp Effort & Inspection: normal respiratory effort Neuro General: patient oriented x3 Assessment & Plan Assessment & Plan (1) Contusion of rib on left side: Code(s): S20.212A - Contusion of left front wall of thorax, initial encounter Plan: X-ray reviewed by me personally. No fracture or pneumothorax seen. Anti- inflammatories given. Note for work given. Orders: Orders XR ribs LT min 3V w CXR1V Today S20.212A - Contusion of left front wall of thorax, initial encounter Coding Level of Care Code Est Pt Level 4 (12006) Diagnoses Contusion of rib on left side S20.212A
[2022-09-23 08:10] VITALS: BP 112/76; PULSE 66; O2SAT 96
== END 2022-09-23 09:56 | disposition home or self-care (01) ==
PROVIDERS: PCP Internal Medicine; Visit Provider Internal Medicine
DX: S20.212A Contusion of left front wall of thorax, initial encounter (principal)
CPT/HCPCS: 99214

== ENCOUNTER 2022-09-23 08:26 | Outpatient (REF) | payer OTHER, SELFPAY ==
--- NOTE | ~2022-09-23 | XR_ITS ---
EXAMINATION: XR RIBS, RIGHT, PA CHEST CLINICAL INFORMATION: Left chest wall pain. COMPARISON: Chest radiographs dated 05/04/2022. TECHNIQUE: 3 views of the right ribs were obtained along with a PA view of the chest. FINDINGS: Lungs are clear. No consolidation, pneumothorax, or pleural effusion. The cardiomediastinal silhouette and pulmonary vasculature are normal. Osseous structures are unremarkable. Ribs are intact. No fractures are identified. XR/XR ribs LT min 3V w CXR1V IMPRESSION: Unremarkable examination.
== END 2022-09-23 08:27 | disposition home or self-care (01) ==
LOC: HO.HMGCX 08:26
PROVIDERS: PCP Internal Medicine; Visit Provider Internal Medicine
DX: S20.212A Contusion of left front wall of thorax, initial encounter (principal)
CPT/HCPCS: 71101

== ENCOUNTER 2023-01-20 10:26 | Outpatient (AMB) | payer OTHER, SELFPAY ==
--- NOTE | 2023-01-20 10:45 | A.OFFPC_ITS ---
Vital Signs 01/20/23 10:49 Height 5 ft Weight 121 lb BMI 23.6 BP 124/76 Blood Pressure Location Rt brachial Position Sitting Pulse 71 Pulse Source Pulse Oximeter Pulse Oximetry (%) 97 Oxygen Delivery Method Room Air Intake Visit Reasons: High Blood Sugar Follow Up Intake Note: pt tested her BS with her fathers glucose monitor this AM and it was 113 pt had not eaten pt says she has been light headed and dizzy for the past few weeks and she says when she has tested in the past her fasting has been 80-90's Allergies oxycodone [From Percocet] Adverse Reaction (Verified 01/20/23 11:25) Gastrointestinal Upset Medication List - Last Reconciled 01/20/23 by Kassy Anna MD esomeprazole magnesium (Nexium) 40 mg PO DAILY fluoxetine 20 mg PO QAM sennosides (Natural Senna Laxative) 17.2 mg (2 x 8.6 mg) PO BEDTIME zolpidem 10 mg PO BEDTIME PRN Tobacco use date assessed: 01/20/23 Dental Screening Dental Screen Date: 01/20/23 Did you have a dental visit in the last 12 months?: Yes Did you have a dental problem in the last 6 months where you did not have access to dental care?: No Was dental information given to patient?: Patient has dentist HPI High Blood Sugar Follow Up HPI Details 62-year-old lady here today complaining of intermittent episodes of dizziness, facial pressure and sinus congestion, which has been present now for the last several days. Denies any accompanying fever, no ringing in the ears, no shortness of breath or cough. Patient did a fingerstick today using her father's glucometer and she states that her fasting glucose was 113 mg per dL and is afraid that she might be a diabetic like her father. Her hemoglobin A1c done today at the clinic is at 5.6% with a fasting glucose of 114 mg/dl. 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 Depression Screening Interpretation: Positive (followed at [facility] in [place]) Depression Screening Done: Yes Source: Developed by Drs. Avila Cox, Carrol Miranda, Magdaleno Remy and colleagues, with an educational mindy from [employer]. Thrive Questionnaire Date Thrive assessed: 07/31/22 LEONARDO-7 AMB Questionnaire LEONARDO-7 Date LEONARDO - 7 assessed: 07/31/22 Source: Developed by Drs. Avila Cox, Carrol Miranda, Magdaleno Remy and colleagues, with an educational mindy from [employer]. Review of Systems Const Reports as per HPI, Reports no additional complaints, Denies fatigue and Reports headache(s) (Frontal) Eyes Denies change in vision ENT Reports Normal hearing present, Denies otalgia, Reports headache(s) (Frontal), Reports nasal congestion, Denies nose pain, Reports disequilibrium, Reports post nasal drip, Reports sinus pain, Reports sinus pressure, Denies sore throat and Denies throat swelling Card Reports no additional complaints Resp Reports no additional complaints Neuro Reports Normal hearing present, Reports headache(s) (Frontal) and Reports disequilibrium Endo Denies fatigue, Denies polyphagia, Denies polydipsia and Denies polyuria Aller/Immun Denies throat swelling Physical exam (Primary Care) Vital Signs: Last Vital Signs Pulse 71 01/20/23 10:49 BP 124/76 01/20/23 10:49 Pulse Ox 97 01/20/23 10:49 Oxygen Delivery Method Room Air 01/20/23 10:49 BMI result Body Mass Index 23.6 Tobacco/Smoking Status: Tobacco use Status Tobacco use date assessed 01/20/23 01/20/23 10:54 Patient Tobacco Use Status Former Tobacco user 01/20/23 10:45 e-Cigarette/Vaping Use Never Used 01/20/23 10:45 Depression Screening Interpretation: Positive (followed at [facility] in [place]) Thrive Assessment: Date of Thrive Assessment Date Thrive assessed 07/31/22 01/20/23 10:45 Const General: comfortable, no acute distress and alert Orientation/consciousness: patient oriented x3 Limitations: no limitations HENMT Ears: external ears normal, TM's normal bilaterally and EAC's normal General nose exam: Normal external nose present, No nasal discharge present and Abnormal mucous membranes and turbinates present erythematous Face and sinus: Yes sinus tenderness (Maxillary areas bilateral) Mouth: Normal oral and palatal mucosa present, oropharynx normal and moist mucous membranes Eyes General: appearance normal, both eyes and all related structures Neck Neck: Yes full ROM, Yes no lymphadenopathy and Yes supple Resp Effort & Inspection: normal respiratory effort and able to speak in complete sentences Auscultation: clear to auscultation bilaterally Cardio Rate: regular rate Rhythm: regular rhythm Heart sounds: S1 normal heart sound present and S2 normal heart sound present Skin General skin exam: no rashes or lesions noted Neuro General: patient oriented x3, tone normal, moves all extremities, Normal light touch and pain sensation and no focal motor deficits Cranial nerves: Yes Normal hearing present Extrem General: Yes full ROM, Yes no joint enlargement, Yes no clubbing, cyanosis or edema, Yes no calf tenderness and Yes normal gait Psych Appearance: grossly normal and well kempt Mental Status: mental status grossly normal Speech and movement: Normal speech and movement present Affect: normal affect Attitude: cooperative Thought process: Normal thought process present Thought content: Normal thought content present Results AMB Random Glucose (hemocue) AMB Random Glucose (hemocue) 114 mg/dL Last Edit by Le Leong CMA o n 01/20/23 11:06 AMB Hemoglobin A1c AMB Hemoglobin A1c 5.6 % Last Edit by Le Leong CMA on 01/20/23 11: 12 Results Reviewed Results Reviewed: Laboratory Last Values Random Glu (Clinic) 114 mg/dL 01/20/23 11:03 Hgb A1c (Clinic) 5.6 % (4.0-6.0) 01/20/23 11:03 Assessment and Plan Assessment & Plan (1) Impaired fasting glucose: Code(s): R73.01 - Impaired fasting glucose Plan: Your fasting blood sugars elevated above 100 mg/dL. Impaired glucose metabolism O2 at risk for developing diabetes mellitus type 2, as well as heart attack and stroke later on. Lifestyle changes at just weight loss, healthy eating habits, and regular exercise are important, and can prevent the progression to diabetes (2) Acute sinusitis: Code(s): J01.90 - Acute sinusitis, unspecified Plan: Prescription sent for amoxicillin 875 mg per capsule to take 1 every 12 hours for 10 days. Return to clinic if no improvement of symptoms after week Orders: Orders AMB Random Glucose (hemocue) Today Z13.9 - Encounter for screening, unspecified AMB Hemoglobin A1c Today Z13.9 - Encounter for screening, unspecified Aspartate Amino Transferase 07/25/23 E89.40 - Asymptomatic postprocedural ovarian failure, F33.41 - Major depressive disorder, recurrent, in partial remission, F51.04 - Psychophysiologic insomnia, K21.9 - Gastro-esophageal reflux disease without esophagitis, R73.01 - Impaired fasting glucose, Z13.1 - Encounter for screening for diabetes mellitus, Z13.220 - Encounter for screening for lipoid disorders Lipid Panel 07/25/23 E89.40 - Asymptomatic postprocedural ovarian failure, F33.41 - Major depressive disorder, recurrent, in partial remission, F51.04 - Psychophysiologic insomnia, K21.9 - Gastro-esophageal reflux disease without esophagitis, R73.01 - Impaired fasting glucose, Z13.1 - Encounter for screening for diabetes mellitus, Z13.220 - Encounter for screening for lipoid disorders Basic Metabolic Panel Fasting 07/25/23 E89.40 - Asymptomatic postprocedural ovarian failure, F33.41 - Major depressive disorder, recurrent, in partial remission, F51.04 - Psychophysiologic insomnia, K21.9 - Gastro-esophageal reflux disease without esophagitis, R73.01 - Impaired fasting glucose, Z13.1 - Encounter for screening for diabetes mellitus, Z13.220 - Encounter for screening for lipoid disorders Hemoglobin A1c 07/25/23 E89.40 - Asymptomatic postprocedural ovarian failure, F33.41 - Major depressive disorder, recurrent, in partial remission, F51.04 - Psychophysiologic insomnia, K21.9 - Gastro-esophageal reflux disease without esophagitis, R73.01 - Impaired fasting glucose, Z13.1 - Encounter for screening for diabetes mellitus, Z13.220 - Encounter for screening for lipoid disorders Alanine Aminotransferase 07/25/23 E89.40 - Asymptomatic postprocedural ovarian failure, F33.41 - Major depressive disorder, recurrent, in partial remission, F51.04 - Psychophysiologic insomnia, K21.9 - Gastro-esophageal reflux disease without esophagitis, R73.01 - Impaired fasting glucose, Z13.1 - Encounter for screening for diabetes mellitus, Z13.220 - Encounter for screening for lipoid di sorders Complete Blood Count Auto Diff 07/25/23 E89.40 - Asymptomatic postprocedural ovarian failure, F33.41 - Major depressive disorder, recurrent, in partial remission, F51.04 - Psychophysiologic insomnia, K21.9 - Gastro-esophageal reflux disease without esophagitis, R73.01 - Impaired fasting glucose, Z13.1 - Encounter for screening for diabetes mellitus, Z13.220 - Encounter for screening for lipoid disorders Vitamin D 25-OH Total 07/25/23 E89.40 - Asymptomatic postprocedural ovarian failure, F33.41 - Major depressive disorder, recurrent, in partial remission, F51.04 - Psychophysiologic insomnia, K21.9 - Gastro-esophageal reflux disease without esophagitis, R73.01 - Impaired fasting glucose, Z13.1 - Encounter for screening for diabetes mellitus, Z13.220 - Encounter for screening for lipoid disorders Medications: New amoxicillin 875 mg PO BID 20 tabs 0RF Coding Level of Care Code Est Pt Level 3 (64351) Diagnoses Impaired fasting glucose R73.01 Acute sinusitis J01.90
[2023-01-20 10:49] VITALS: BP 124/76; PULSE 71; O2SAT 97; BMI 23.6
== END 2023-01-20 12:13 | disposition home or self-care (01) ==
PROVIDERS: PCP Internal Medicine; Visit Provider Internal Medicine
DX: R73.01 Impaired fasting glucose (principal); J01.90 Acute sinusitis, unspecified
CPT/HCPCS: 82948; 83036; 99213

== ENCOUNTER 2023-01-28 13:09 | Outpatient (REF) | payer OTHER, SELFPAY ==
--- NOTE | ~2023-01-28 | MM_ITS ---
EXAMINATION: BONE DENSITOMETRY CLINICAL INDICATION: Asymptomatic menopausal state. COMPARISON: This is the patient's baseline examination. TECHNIQUE: Using a [employer] DXA System (software version: 13.1) manufactured by [employer], dual-energy x-ray absorptiometry was performed of the lumbar spine and left hip. The patient has had a left hip/femur fracture. The images are of good technical quality. Summary results are attached. FINDINGS: AP SPINE L1-L4: BMD 0.761 g/cm2, Z-score -1.8, T-score -3.5, osteoporosis. RIGHT FEMUR, NECK: BMD 0.909 g/cm2, Z-score 0.6, T-score -0.9, normal. RIGHT FEMUR, TOTAL: BMD 1.017 g/cm2, Z-score 1.3, T-score 0.1, normal. IDENTIFIED RISK FACTORS: History of adult fracture. HISTORY OF FRACTURE: Femur/hip. MEDICATIONS: Calcium supplement and/or multivitamin. Vitamin D. MM/XR DEXA axial skeleton IMPRESSION: 1. DIAGNOSIS: Severe osteoporosis based on the lowest T-score value of -3.5 in the lumbar spine and the prior history of fracture applying World Health Organization criteria. 2. 10-YEAR FRACTURE RISK PREDICTION, FRAX: According to the guidelines, FRAX calculation should only be performed on patients in the osteopenia bone density category.?Therefore, FRAX was not performed on this patient.? 3. Treatment Recommendations: NOF guidelines recommend consideration for treatment in postmenopausal women and men age 50 and older presenting with the following: -A hip or vertebral (clinical or morphometric) fracture. -T-score less than or equal to -2.5 at the femoral neck or spine after appropriate evaluation to exclude secondary causes. -Low bone mass at the hip or spine and a 10-year fracture probability by FRAX of greater than or equal to 3% for hip fracture or greater than or equal to 20% for major osteoporotic fracture based on the [place] adapted WHO algorithm. 4. Other Recommendations: All treatment decisions require clinical judgment and consideration of individual patient factors, including patient preferences, comorbidities, previous drug use, risk factors not captured in the FRAX model (e.g. frailty, falls, vitamin D deficiency, increased bone turnover, interval significant decline in bone density) and possible under or overestimation of fracture risk by FRAX. Additional medical evaluation for secondary cause of low bone mineral density may be appropriate. FUTURE SCAN RECOMMENDATION: People with diagnosed cases of osteoporosis or at high risk for fracture should have regular bone mineral density tests. For patients eligible for Medicare, routine testing is allowed once every 2 years. The testing frequency can be increased to one year for patients who have rapidly progressing disease, those who are receiving or discontinuing medical therapy to restore bone mass, or have additional risk factors.
== END 2023-01-28 13:10 | disposition home or self-care (01) ==
LOC: HO.MAMMO 13:09
PROVIDERS: PCP Internal Medicine; Visit Provider Internal Medicine
DX: Z12.31 Encounter for screening mammogram for malignant neoplasm of breast (principal); Z13.820 Encounter for screening for osteoporosis; Z78.0 Asymptomatic menopausal state
CPT/HCPCS: 77063; 77067; 77080

== ENCOUNTER → 2023-01-28 13:30 | Outpatient (BNV) | payer SELFPAY | PROVIDERS: PCP Internal Medicine; Visit Provider Radiology Diagnostic Radiology | DX: Z12.31 Encounter for screening mammogram for malignant neoplasm of breast (principal) | CPT/HCPCS: 77063; 77067 ==

== ENCOUNTER 2023-03-03 14:48 | Outpatient (AMB) | payer OTHER, SELFPAY ==
--- NOTE | 2023-03-03 14:57 | A.OFFVIS_ITS ---
Intake Vital Signs 03/03/23 14:58 Height 5 ft Weight 121 lb 4.068 oz BMI 23.7 BP 133/70 Blood Pressure Location Lt brachial Position Sitting Pulse 64 Intake Visit Reasons: 6month f/u for GERD, IBS discuss colo Intake Note: Cari presents in the office as a 6 month follow up. CC: She states that she is not having any concerns at this time. Electrical High Tension Tester Required: No Allergies oxycodone [From Percocet] Adverse Reaction (Verified 03/03/23 14:58) Gastrointestinal Upset HPI 6month f/u for GERD, IBS discuss colo HPI Details LAST VISIT: Chronic GERD Patient was encouraged to continue Nexium. Patient will continue to avoid dietary triggers and late night snacking. Staying upright for minimum 3 hours after meals discussed with patient. Postprandial abdominal bloating Occasional postprandial abdominal bloating. Discussed with patient following FODMAP diet as much as she can. Importance of emptying her bowels better discussed with patient. Patient was encouraged to drink plenty fluids Constipation Continue Senokot. Increase fluid intake and activity to promote better bowel motility. Patient will follow-up with the office in 6 months we will discuss her going for colonoscopy, sooner on as needed basis. Patient is agreeable to this plan and verbalizes understanding of instructions. She was given the opportunity to ask questions and all questions answered. ? Thank you for allowing me to participate in her care Plan Medications Refilled esomeprazole magnesium (Nexium) 40 mg PO DAILY 90 caps 5RF K21.9 - Gastro- esophageal reflux disease without esophagitis sennosides (Natural Senna Laxative) 17.2 mg (2 x 8.6 mg) PO BEDTIME 180 tabs 3RF constipation K59.00 - Constipation, unspecified TODAY'S VISIT Patient is here today for follow-up and to discuss going for colonoscopy. Patient reports that she has been feeling well, however occasionally patient reports that she has been having postprandial abdominal bloating. Patient admits to be eating large amount of food. Patient reports that she is moving her bowels better now that she is taking Senokot. Patient is taking Nexium in the morning and for the most part her symptoms of acid reflux are suppressed. Patient denies dyspepsia, dysphagia or odynophagia. Occasional acid reflux depending on what she eats. Patient does admit to having frequent abdominal bloating, however patient admits that she is also eating more than usual. Bingeing on different food. Patient had colonoscopy done over 5 years ago. Patient denies any melena, hematochezia, unintentional weight loss or ribbon like stools. Denies any issues with anesthesia in the past. No history of sleep apnea. Not on any anticoagulation medication. 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 Cognitive needs: No Hearing needs: No Vision needs: Yes Review of Systems Const Denies weight gain and Denies weight loss ENT Reports no additional complaints, Denies dysphagia and Denies odynophagia Card Reports no additional complaints Resp Reports no additional complaints GI Denies abdominal pain, Denies belching, Denies melena, Reports bloating, Denies change in bowel habits, Denies dysphagia, Denies excessive flatus, Denies dy spepsia, Reports heartburn (Occasional), Denies diarrhea, Denies loose stools, Denies nausea, Denies odynophagia and Denies vomiting Reports no additional complaints Musc Reports no additional complaints Neuro Reports no additional complaints Psych Reports no additional complaints Endo Reports no additional complaints Physical Exam Vital Signs: Last Vital Signs Pulse 64 03/03/23 14:58 BP 133/70 03/03/23 14:58 BMI result Body Mass Index 23.7 Const General: healthy appearing, no acute distress and well developed Nutritional Appearance: well nourished Orientation/consciousness: patient oriented x3 HEENT Head: Yes normal to inspection, Yes normocephalic and Yes atraumatic Face and sinus: Yes normal facial exam Mouth: Normal oral and palatal mucosa present Throat: Yes posterior oropharynx normal, Yes tonsils normal and Yes uvula midline Eyes General: appearance normal, both eyes and all related structures Neck Neck: Yes normal visual inspection, Yes full ROM and Yes trachea midline Thyroid: Thyroid normal Resp Effort & Inspection: normal respiratory effort, able to speak in complete sentences, no tracheal deviation and symmetric chest movement Auscultation: clear to auscultation bilaterally Cardio Rate: regular rate GI Inspection: Yes normal to inspection and No distended Palpation (GI): Soft to palpation, not firm, nontender and No hepatosplenomegaly present Auscultation: normal bowel sounds General: Yes no CVA tenderness Back/Spine/Pelvis Back: no CVA tenderness Skin General skin exam: elasticity normal, turgor normal and dry skin Neuro General: patient oriented x3 Psych Appearance: grossly normal Mental Status: mental status grossly normal Assessment & Plan Assessment & Plan (1) Chronic GERD: Code(s): K21.9 - Gastro-esophageal reflux disease without esophagitis (2) Postprandial abdominal bloating: Code(s): R14.0 - Abdominal distension (gaseous) (3) Constipation: Code(s): K59.00 - Constipation, unspecified Qualifiers: Constipation type: slow transit constipation Qualified Code(s): K59.01 - Slow transit constipation (4) Screen for colon cancer: Code(s): Z12.11 - Encounter for screening for malignant neoplasm of colon Plan Continue current treatment with Nexium. Discussed with patient avoiding dietary triggers like as hiking. Patient will be sent for upper endoscopy to rule out gastritis, duodenitis, esophagitis, gastric or peptic ulcers, H pylori, Morales's. Patient can continue taking senna daily. Instructed to increase fluid intake and activity to promote better bowel motility. Patient also encouraged to follow FODMAP diet. List of food recommended as well as list of food to avoid given to patient. Postprandial abdominal bloating most likely related to the food that she is eating. Patient also encouraged to eat smaller meals and more often. What to expect before during and after the procedure discussed with patient. Clear liquid diet and good bowel prep stressed. I will see patient after the procedure, sooner on as needed basis. Patient is agreeable to this plan and verbalizes understanding of instructions. She was given the opportunity to ask questions and all questions answered. Thank you for allowing me to participate in her care Medications: New polyethylene glycol 3350 (Miralax) As directed by gastroenterology department at [facility] [place] 238 grams PO ONCE 238 grams 0RF Z12.11 - Encounter for screening for malignant neoplasm of colon bisacodyl (Dulcolax (bisacodyl)) take 4 tabs at noon the day before your colonoscopy 20 mg (4 x 5 mg) PO ONCE 1 day 4 tabs 0RF Z12.11 - Encounter for screening for malignant neoplasm of colon Refilled sennosides (Natural Senna Laxative) 17.2 mg (2 x 8.6 mg) PO BEDTIME 180 tabs 3RF constipation K59.00 - Constipation, unspecified esomeprazole magnesium (Nexium) 40 mg PO DAILY 90 caps 5RF K21.9 - Gastro- esophageal reflux disease without esophagitis Coding Level of Care Code Est Pt Level 4 (95731) Diagnoses Chronic GERD K21.9 Postprandial abdominal bloating R14.0 Slow transit constipation K59.01 Constipation type: slow transit constipation Screen for colon cancer Z12.11 Time Spent (min) 35 Comment 20 minutes spent with patient and additional 15 minutes spent reviewing her records
[2023-03-03 14:58] VITALS: BP 133/70; PULSE 64; BMI 23.7
== END 2023-03-03 15:31 | disposition home or self-care (01) ==
PROVIDERS: PCP Internal Medicine; Visit Provider Nurse Practitioner Family
DX: K21.9 Gastro-esophageal reflux disease without esophagitis (principal); R14.0 Abdominal distension (gaseous); K59.01 Slow transit constipation; Z12.11 Encounter for screening for malignant neoplasm of colon
CPT/HCPCS: 99214

== ENCOUNTER → 2023-03-03 14:48 | Outpatient (BNVA) | payer OTHER, SELFPAY | PROVIDERS: PCP Internal Medicine; Visit Provider Nurse Practitioner Family | DX: Z12.11 Encounter for screening for malignant neoplasm of colon (principal); K21.9 Gastro-esophageal reflux disease without esophagitis; K59.01 Slow transit constipation; R14.0 Abdominal distension (gaseous) | CPT/HCPCS: 99212 ==

== ENCOUNTER 2023-03-18 07:54 | Outpatient (AMB) | payer OTHER, SELFPAY ==
[2023-03-18 08:09] VITALS: BP 116/68; BMI 23.7
--- NOTE | 2023-03-18 08:09 | A.OFFVIS_ITS ---
Intake Vital Signs 03/18/23 08:09 Height 5 ft Weight 121 lb 4.068 oz BMI 23.7 BP 116/68 Intake Visit Reasons: New Patient Annual Intake Note: no concerns Data Entry Specialist Required: No Information Interpreted: non-clinical & clinical Log Loader Helper: Log Loader Helper Present (Arlin GANN) Accompanied by: Self / Same As Patient Allergies oxycodone [From Percocet] Adverse Reaction (Verified 03/18/23 08:11) Gastrointestinal Upset Post menopausal: Yes HPI HPI Comments History of Present Illness Details Presenting for annual exam. No complaints. Last Pap/HPV was few years ago Last Mammogram was BI-RADS 1 in 02/14 No previous screening Colonoscopy PFSH Medical History Impaired fasting glucose Plantar fasciitis of right foot Trigger finger, left middle finger Left femoral shaft fracture Chronic insomnia Depression, major, recurrent, in partial remission Chronic GERD Surgical History (Updated 03/18/23 @ 08:14 by Arlin White CMA) Hx of abdominoplasty Hx of colonoscopy History of esophagogastroduodenoscopy (EGD) Family History (Updated 03/18/23 @ 08:14 by Arlin White CMA) Brother Substance use disorder Daughter Mental health disorder Mother Alzheimer disease Social History (Updated 03/18/23 @ 08:16 by Arlin White CMA) Household Members: Family Housing: House Alcohol intake: current Alcohol intake frequency: a few times a week Alcohol type: beer Patient Tobacco Use Status: Former Tobacco user Years Smoked: 15 e-Cigarette/Vaping Use: Never Used service: No Current occupational status: retired 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 Sexually active: No Sexual orientation: Straight/Heterosexual Gender identity: Female Cognitive needs: No Hearing needs: No Vision needs: Yes Female Reproductive History Menstrual Menopause type: natural Total pregnancies: 2 Full term: 2 Number of Living Children: 2 Date of Mammogram: 01/28/23 Date of last Bone Density Screenin01/28/23 Review of Systems Const All systems reviewed & are unremarkable except as noted in HPI and below Card Reports as per HPI Resp Reports as per HPI GI Reports as per HPI and Reports no additional complaints Reports as per HPI Physical Exam Vital Signs: Last Vital Signs BP 116/68 03/18/23 08:09 BMI result Body Mass Index 23.7 Const General: cooperative, healthy appearing and comfortable Chest Chest palpation & inspection: normal inspection of the chest and normal palpation of entire chest wall Breast/axilla inspection: normal inspection of the breasts and normal inspection of the axillae Breast/axilla palpation: normal palpation of the breasts, normal palpation of the axillae and no axillary lymphadenopathy Resp Effort & Inspection: normal respiratory effort Auscultation: clear to auscultation bilaterally Percussion: percussion normal Cardio Palpation: normal PMI Rate: regular rate Rhythm: regular rhythm Heart sounds: no murmurs and no rubs Peripheral pulses: Peripheral pulses 2+ throughout GI Inspection: Yes normal to inspection Palpation (GI): Soft to palpation, nontender, no guarding, not rigid and No hepatosplenomegaly present Percussion: Yes normal to percussion Auscultation: normal bowel sounds Rectal Exam - Female: deferred General: Yes bladder normal to palpation External Female Exam: No lesion Speculum Exam - Vagina: normal appearance of the vagina, normal palpation, normal vaginal discharge and not erythematous Speculum Exam - Cervix: normal appearance of the cervix and normal palpation Bimanual exam- vagina & uterus: normal bimanual exam, normal palpation, uterine size normal, bladder normal to palpation, consistency normal and normal palpation Bimanual Exam- Adnexa, other: normal adnexae, no masses and no tenderness Assessment & Plan Assessment & Plan (1) Well woman exam: Code(s): Z01.419 - Encounter for gynecological examination (general) (routine) without abnormal findings Plan: Cotesting done. Instructions given to patient to schedule her next screening Mammogram in 02/15. Counseled the patient about the recommended dietary allowance of 1000 mg of Calcium & 600 IU of vitamin D. The patient is scheduled for her next screening colonoscopy in 07/16 The patient was instructed to perform monthly self-breast exams and to schedule an annual exam in a year; All questions answered and the patient verbalized understanding. Instructed the patient to schedule annual exam in a year Coding Level of Care Code New Pt Prev Care 40-64y(19780) Diagnoses Well woman exam Z01.419
== END 2023-03-18 08:29 | disposition home or self-care (01) ==
PROVIDERS: PCP Internal Medicine; Visit Provider Obstetrics & Gynecology
DX: Z01.419 Encounter for gynecological examination (general) (routine) without abnormal findings (principal)
CPT/HCPCS: 99386

== ENCOUNTER 2023-03-18 07:54 | Outpatient (REF) | payer OTHER, SELFPAY ==
[2023-03-21 06:43] LABS: HPV mRNA E6/E7 rflx Not Detected (Not Detected)
== END 2023-03-18 07:55 | disposition home or self-care (01) ==
LOC: HO.LNP 07:54
PROVIDERS: PCP Internal Medicine; Visit Provider Obstetrics & Gynecology
DX: Z01.419 Encounter for gynecological examination (general) (routine) without abnormal findings (principal)
CPT/HCPCS: 87624; 88142; 99386

== ENCOUNTER 2023-03-25 10:07 | Outpatient (AMB) | payer OTHER, SELFPAY ==
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
[2023-03-25 10:13] VITALS: BP 122/72; PULSE 74; O2SAT 97; BMI 23.4
== END 2023-03-25 11:03 | disposition home or self-care (01) ==
PROVIDERS: PCP Internal Medicine; Visit Provider Internal Medicine
DX: M81.0 Age-related osteoporosis without current pathological fracture (principal)
CPT/HCPCS: 99213

== ENCOUNTER 2023-07-02 07:25 | Day surgery (SDC) | payer OTHER, SELFPAY ==
[2023-06-30 16:16] VITALS: BMI 23.4
--- NOTE | 2023-07-01 08:34 | P.CONAN_ITS ---
Documented by User: Sarai Price NP 07/01/23 08:34 HPI - Anesthesia Eval Consult details Narrative: 63yo F for Upper Endoscopy and Colonoscopy PMF Active Problems Active Problems: All Active Problems Osteoporosis of lumbar spine (Acute) Well woman exam (Acute) Impaired fasting glucose (Acute) Contusion of rib on left side (Acute) Plantar fasciitis of right foot (Acute) Tendinitis of right rotator cuff (Acute) Trigger finger, left middle finger (Acute) Chronic insomnia (Acute) Depression, major, recurrent, in partial remission (Acute) Chronic GERD (Acute) Past Medical History Medical History (Updated 03/25/23 @ 10:41 by Kassy Anna MD) Osteoporosis of lumbar spine History of bone density study Impaired fasting glucose Plantar fasciitis of right foot Trigger finger, left middle finger Left femoral shaft fracture Chronic insomnia Depression, major, recurrent, in partial remission Chronic GERD Family History Family History Brother Substance use disorder Daughter Mental health disorder Mother Alzheimer disease Surgical History Surgical History (Updated 07/02/23 @ 07:52 by Lupe Ruggiero RN) History of surgery on lower extremity Hx of abdominoplasty Hx of colonoscopy History of esophagogastroduodenoscopy (EGD) Social History Social History Household Members: Family Housing: House Alcohol intake: current Alcohol intake frequency: a few times a week Alcohol type: beer Patient Tobacco Use Status: Former Tobacco user Years Smoked: 15 e-Cigarette/Vaping Use: Never Used Use of substances other than those prescribed or required for medical reasons: No Are you DNR?: No Advance Directives: No Advance Directives Information Provided: Yes service: No Current occupational status: employed 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 Sexual orientation: Straight/Heterosexual Gender identity: Female Cognitive needs: No Hearing needs: No Vision needs: Yes Meds Allergies Allergy/AdvReac Type Severity Reaction Status Date / Time oxycodone [From Percocet] AdvReac Gastrointestinal Verified 07/02/23 07:50 Upset Home Medications ?Medication ?Instructions ?Recorded ?Confirmed ?Last Taken ?Type zolpidem 10 mg tablet 10 mg PO BEDTIME PRN Insomnia 03/26/21 07/02/23 Unknown History fluoxetine 20 mg capsule 20 mg PO QAM 07/31/22 07/02/23 Unknown History cholecalciferol (vitamin D3) 25 25 mcg PO DAILY 03/25/23 07/02/23 Unknown History mcg (1,000 unit) capsule Exam Height,Weight and Vital Signs: Height 5 ft Weight 54.431 kg Assessment and Plan Assessment Anesthesia Assessment: Chart Reviewed Documented by User: Mahamed Bruno MD 07/02/23 08:12 [facility] Past Medical History Medical History (Updated 03/25/23 @ 10:41 by Kassy Anna MD) Osteoporosis of lumbar spine History of bone density study Impaired fasting glucose Plantar fasciitis of right foot Trigger finger, left middle finger Left femoral shaft fracture Chronic insomnia Depression, major, recurrent, in partial remission Chronic GERD Family History Family History Brother Substance use disorder Daughter Mental health disorder Mother Alzheimer disease Family history of problems with anesthesia: No Surgical History Surgical History (Updated 07/02/23 @ 07:52 by Lupe Ruggiero RN) History of surgery on lower extremity Hx of abdominoplasty Hx of colonoscopy History of esophagogastroduodenoscopy (EGD) History of Problems with Anesthesia: No Social History Social History Household Members: Family Housing: House Alcohol intake: current Alcohol intake frequency: a few times a week Alcohol type: beer Patient Tobacco Use Status: Former Tobacco user Years Smoked: 15 e-Cigarette/Vaping Use: Never Used Use of substances other than those prescribed or required for medical reasons: No Are you DNR?: No Advance Directives: No Advance Directives Information Provided: Yes service: No Current occupational status: employed 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 Sexual orientation: Straight/Heterosexual Gender identity: Female Cognitive needs: No Hearing needs: No Vision needs: Yes Meds Allergies Allergy/AdvReac Type Severity Reaction Status Date / Time oxycodone [From Percocet] AdvReac Gastrointestinal Verified 07/02/23 07:50 Upset Home Medications ?Medication ?Instructions ?Recorded ?Confirmed ?Last Taken ?Type zolpidem 10 mg tablet 10 mg PO BEDTIME PRN Insomnia 03/26/21 07/02/23 Unknown History fluoxetine 20 mg capsule 20 mg PO QAM 07/31/22 07/02/23 Unknown History cholecalciferol (vitamin D3) 25 25 mcg PO DAILY 03/25/23 07/02/23 Unknown History mcg (1,000 unit) capsule Exam Airway Mallampati Class: I TM Dist: >3cm Neck ROM: Full Loose/Missing/Broken Teeth: No Heart: rrr Lungs: cta Assessment and Plan Assessment Anesthesia Assessment: Anesthesia Plan Discussed Final Anesthetic Review Family History of Problems with Anesthesia: No History of Problems with Anesthesia: No NPO: Yes ASA Class: II Final Preanesthetic Review: No Changes in Pt Med Stat, Meds/Allgs Chart Reviewed, Consent Obtained/Reviewed and Anes Risks/Benef Reviewed Patient Risk: Intermediate Procedure Risk: Intermediate Anesthetic Plan Anesthetic Plan: MAC: Disposition: Standard PACU
--- NOTE | 2023-07-02 06:22 | MHC.SHP ---
Pre-Procedural Eval Section A - 24 Hr Update-Section A only Date of Service: 07/02/23 Section B - Complete if H&P > 30 days Chief Complaint: Gastro-esophageal reflux disease without esophagit Relevant Family History (Specify if Yes): No Relevant Social History: None Present Medications: see Short Stay Collaborative assessment Medical History: Significant History (Osteoporosis of lumbar spine History of bone density study Impaired fasting glucose Plantar fasciitis of right foot Trigger finger, left middle finger Left femoral shaft fracture Chronic insomnia Depression, major, recurrent, in partial remission Chronic GERD) History of Previous Operations: Relevant previous surgery/procedure and date(s) (Hx of abdominoplasty Hx of colonoscopy History of esophagogastroduodenoscopy (EGD)) Allergies: Allergies Allergy/AdvReac Type Severity Reaction Status Date / Time oxycodone [From Percocet] AdvReac Gastrointestinal Verified 03/25/23 10:22 Upset Review of Systems Sugical H&P ROS: Negative: Constitution, Cardiovascular, Respiratory, Neurological, Psychiatric, Hem-Onc, Allergic/Immunologic, Gastrointestinal, Genitourinary, Musculoskeletal, Integumentary, Endocrine and Eyes/Ears/Nose/Throat Exam Surgical H&P Exam: Normal: HEENT, Normal: Heart, Normal: Lungs, Normal: Extremities, Normal: Abdomen, Normal: Skin and Normal: Neurological Plan Diagnosis/Plan: Unchanged I have reviewed the history and physical and performed a pertinent physical examination on my patient. No changes have occurred unless specified. Time Spent With Patient Time: Total time managing care of this patient today ____ minutes.
[2023-07-02 07:58] VITALS: BMI 23.0
[2023-07-02 08:05] VITALS: BP 119/71; PULSE 63; RESP 16; TEMP 36.2; O2SAT 95
[2023-07-02] MEDS: Lactated Ringers 1,000 ML 100 ML IVCONT (08:20)
--- NOTE | 2023-07-02 08:27 | P.OPN-COLO_ITS ---
Colonoscopy Operative Note Operative Note Date of Service: 07/02/23 Narrative: Operative Information Procedure Description: EGD, Colonoscopy Indication: GERD, screening Anesthesia: MAC FLEXIBLE TRANSORAL UPPER GASTROINTESTINAL ENDOSCOPY AND COLONOSCOPY PROCEDURE NOTE UPPER ENDOSCOPY Consent: Indications for the procedure and potential complications of bleeding, perforation, reaction to medications and missed diagnosis were discussed with the patient and informed consent was obtained. Instrument: Olympus GIF H 190 J mid size upper endoscope Monitoring: Vital signs and clinical assessment, continuous EKG monitoring, Pulse oximetry, Carbon Dioxide monitoring and blood pressure monitoring were done throughout the procedure. Procedure: The patient was placed in the left lateral decubitis position and pre-procedure medications were administered and a bite block was placed. The endoscope was inserted into the mouth and advanced under direct vision to the third part of duodenum. A careful inspection was made as the upper endoscope was withdrawn including a retroflexed examination of the proximal stomach; Findings and interventions are described below. Findings: Larynx:normal Esophagus: GE junction at 33 cm, diaphragm hiatus at 33 cm, possible short segment Barretts, bx taken to r/o also bx taken from distal esophagus Stomach: Mild erythema, Biopsies were obtained. Grade 2 flap valve on retroflexed examination of the cardia. Duodenum: Normal bulb and descending duodenum, Intervention: Biopsies as noted above, COLONOSCOPY Instrument: Olympus variable stiffness pediatric scope 190L Colonoscopy Monitoring: Vital signs and clinical assessment, continuous EKG monitoring, Pulse oximetry, Carbon Dioxide monitoring and blood pressure monitoring were done throughout the procedure. Colon withdrawal time was 12 minutes. Procedure: The patient was placed in the left lateral decubitis position and pre-procedure medications were administered. After a digital rectal examination of the ano-rectum, the video colonoscope was inserted into the rectum and advanced through the colon to the cecum/TI. The colonoscope was slowly withdrawn in a retrograde panoramic fashion and the colon mucosa was carefully examined including a retroflexed view of the rectum. Findings and interventions are described below. Procedure Difficulty:moderate Findings: Terminal Ileum-normal Cecum: x 3 sessile polyps 5-8 mm raised w/ eleview injection and then removed with cold snare Ascending Colon: x 2 sessile polyps 7-9 mm removed with cold forceps Transverse Colon -normal Descending Colon:normal Sigmoid Colon: moderate diverticulosis Rectum: Retroflexion with small internal hemorrhoids, grade I Anorectum - normal Colon preparation: [place] Bowel Preparation Scale Right colon; 2 Transverse colon: 2 Left colon; 2 (0 = Unprepared colon segment with mucosa not seen due to solid stool that cannot be cleared. 1 = Portion of mucosa of the colon segment seen, but other areas of the colon segment not well seen due to staining, residual stool and/or opaque liquid. 2 = Minor amount of residual staining, small fragments of stool and/or opaque liquid, but mucosa of colon segment seen well. 3 = Entire mucosa of colon segment seen well with no residual staining, small fragments of stool or opaque liquid) Impression and Post Procedure Diagnosis: Endoscopy Findings: mild gastritis r/o barretts Colonoscopy Findings: diverticulosis colon polyps internal hemorrhoids Plan: Await Pathology results Repeat Colonoscopy in 3 years due to polyps or earlier if clinically indicated High fiber diet leaflet avoid straining at stool, epsom salts and sitz bath, anusol supps or cream Reflux precautions Above findings were reviewed with the patient and relevant handouts were provided if indicated.
[2023-07-02 09:19] VITALS: BP 112/66; PULSE 61; RESP 18; TEMP 36.1; O2SAT 98
[2023-07-02 09:34] VITALS: BP 112/66; PULSE 60; RESP 18; TEMP 36.7; O2SAT 99
== END 2023-07-02 10:16 | disposition home or self-care (01) ==
PROVIDERS: PCP Internal Medicine; Visit Provider Internal Medicine Gastroenterology
PROC: (CPT 45385; principal; 2023-07-02 08:50)
DX: Z12.11 Encounter for screening for malignant neoplasm of colon (principal); D12.0 Benign neoplasm of cecum; K63.5 Polyp of colon; K57.30 Diverticulosis of large intestine without perforation or abscess without bleeding; K64.0 First degree hemorrhoids; K21.00 Gastro-esophageal reflux disease with esophagitis, without bleeding; K22.70 Barrett's esophagus without dysplasia; K29.70 Gastritis, unspecified, without bleeding
CPT/HCPCS: 45385; 45380; 45381; 43239; 88305; 88313; 88342; J1596; J2704

== ENCOUNTER → 2023-07-02 07:25 | Outpatient (BNV) | payer OTHER, SELFPAY | PROVIDERS: PCP Internal Medicine; Visit Provider Internal Medicine Gastroenterology | DX: Z12.11 Encounter for screening for malignant neoplasm of colon (principal); K21.9 Gastro-esophageal reflux disease without esophagitis; D12.0 Benign neoplasm of cecum; D12.2 Benign neoplasm of ascending colon; K57.30 Diverticulosis of large intestine without perforation or abscess without bleeding; K64.0 First degree hemorrhoids | CPT/HCPCS: 43239; 45380; 45381; 45385 ==

== ENCOUNTER 2023-08-04 12:40 | Outpatient (AMB) | payer OTHER, SELFPAY ==
--- NOTE | 2023-08-04 12:43 | A.OFFPC_ITS ---
Vital Signs 08/04/23 12:44 Height 5 ft Weight 123 lb BMI 24.0 BP 124/86 Blood Pressure Location Lt brachial Position Sitting Pulse 67 Pulse Source Pulse Oximeter Pulse Oximetry (%) 98 Oxygen Delivery Method Room Air Intake Visit Reasons: PE Intake Note: Patient here for physical exam. Allergies oxycodone [From Percocet] Adverse Reaction (Verified 11/08/23 22:23) Nausea and Vomiting Medication List - Last Reconciled 08/04/23 by Kassy Anna MD alendronate 70 mg PO QWEEK cholecalciferol (vitamin D3) 25 mcg PO DAILY esomeprazole magnesium (Nexium) 40 mg PO DAILY fluoxetine 20 mg PO QAM sennosides (Natural Senna Laxative) 17.2 mg (2 x 8.6 mg) PO BEDTIME zolpidem 10 mg PO BEDTIME PRN Tobacco use date assessed: 03/25/23 Dental Screening Dental Screen Date: 03/25/23 HPI PE HPI Details 63 year old lady here today for physical exam. She has osteoporosis of lumbar spine currently on alendronate and vitamin-D 3 supplements. Complaining of upper back and lower back pain and shoulder pain since starting alendronate. She is currently followed by Dr. Susana Ho for her major depression currently on fluoxetine , and has chronic insomnia, taking zolpidem. She takes esomeprazole for her chronic GERD and Morales's esophagus seen on EGD done earlier this year,, followed by [facility]. She is up-to-date with her screening mammogram and bone density scan done 02/11/2023. She is up-to-date with her cervical cancer screening, sees Dr. Lobo last Pap smear done 03/14/2023 showing atrophic vaginal mucosa with negative HPV . Up-to-date with her screening colon oscopy done 06/2023 with removal of 2 tubular adenoma polyp repeat colonoscopy due again in [address] Lund She sees [facility], has an appointment already for cataract surgery scheduled for 08/22/2023 and 10/05/2023 [facility] Medical History Lateral epicondylitis of elbow Left wrist fracture Left calcaneal fracture Morales's esophagus determined by biopsy History of adenomatous polyp of colon Osteoporosis of lumbar spine History of bone density study Impaired fasting glucose Plantar fasciitis of right foot Trigger finger, left middle finger Left femoral shaft fracture Chronic insomnia Depression, major, recurrent, in partial remission Chronic GERD Surgical History H/O left wrist surgery History of surgery on lower extremity Hx of abdominoplasty Hx of colonoscopy History of esophagogastroduodenoscopy (EGD) Family History Brother Substance use disorder Daughter Mental health disorder Mother Alzheimer disease Social History Household Members: Family Housing: House Alcohol intake: current Alcohol intake frequency: a few times a week Alcohol type: beer Patient Tobacco Use Status: Former Tobacco user Years Smoked: 15 e-Cigarette/Vaping Use: Never Used service: No Current occupational status: employed 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 Depression Screening Interpretation: Negative Depression Screening Done: Yes Source: Developed by Drs. Avila Cox, Magdaleno Sloan and colleagues, with an educational mindy from [employer]. Thrive Questionnaire Date Thrive assessed: 03/25/23 LEONARDO-7 AMB Questionnaire LEONARDO-7 Date LEONARDO - 7 assessed: 03/25/23 Source: Developed by Drs. Avila Cox, Magdaleno Sloan and colleagues, with an educational mindy from [employer]. Review of Systems Const All systems reviewed & are unremarkable except as noted in HPI and below Eyes Denies change in vision ENT Reports Normal hearing present, Denies dysphagia and Denies odynophagia Card Reports no additional complaints Resp Reports no additional complaints GI Denies abdominal pain, Denies change in bowel habits, Denies dysphagia, Denies excessive flatus, Denies dyspepsia, Reports heartburn (Occasional), Denies nausea and Denies odynophagia Reports no additional complaints Musc Reports as per HPI Skin/Breast Denies breast pain, Denies breast mass and Denies rash Neuro Reports no additional complaints and Reports Normal hearing present Psych Reports no additional complaints Endo Reports no additional complaints Андрей/Lymph Reports no additional complaints Aller/Immun Reports no additional complaints Physical exam (Primary Care) Vital Signs: Last Vital Signs Pulse 67 08/04/23 12:44 BP 124/86 08/04/23 12:44 Pulse Ox 98 08/04/23 12:44 Oxygen Delivery Method Room Air 08/04/23 12:44 BMI result Body Mass Index 24.0 Tobacco/Smoking Status: Tobacco use Status Tobacco use date assessed 03/25/23 08/04/23 12:46 Patient Tobacco Use Status Former Tobacco user 08/04/23 12:46 e-Cigarette/Vaping Use Never Used 08/04/23 12:46 Depression Screening Interpretation: Negative Thrive Assessment: Date of Thrive Assessment Date Thrive assessed 03/25/23 08/04/23 12:46 Const General: comfortable, no acute distress and alert Orientation/consciousness: patient oriented x3 HENMT Ears: external ears normal General nose exam: Normal external nose present and No nasal discharge present Face and sinus: Yes face symmetric Mouth: Normal oral and palatal mucosa present, oropharynx normal and moist mucous membranes Eyes General: appearance normal, both eyes and all related structures Neck Neck: Yes full ROM, Yes no lymphadenopathy and Yes supple Chest Breast/axilla palpation: normal palpation of the breasts Resp Effort & Inspection: normal respiratory effort and able to speak in complete sentences Auscultation: clear to auscultation bilaterally Cardio Rate: regular rate Rhythm: regular rhythm Heart sounds: S1 normal heart sound present and S2 normal heart sound present GI Palpation (GI): Soft to palpation, nontender, no guarding and no masses General: Yes deferred (To her own OBGYN for her routine Pap and pelvic exam) Back/Spine/Pelvis Back: No back tenderness Skin General skin exam: no rashes or lesions noted Neuro General: patient oriented x3, tone normal, moves all extremities, Normal light touch and pain sensation and no focal motor deficits Cranial nerves: Yes Normal hearing present Extrem General: Yes full ROM, Yes no joint enlargement, Yes no clubbing, cyanosis or edema, Yes no calf tenderness and Yes normal gait Psych Appearance: grossly normal and well kempt Mental Status: mental status grossly normal Speech and movement: Normal speech and movement present Affect: normal affect Thought process: Normal thought process present Coding Level of Care Code Est Pt Prev Care 40-64y([id number]) Diagnoses Annual visit for general adult medical examination with abnormal findings Z00.01 Osteoporosis of lumbar spine M81.0 Impaired fasting glucose R73.01 Chronic insomnia F51.04 Depression, major, recurrent, in partial remission F33.41 Chronic GERD K21.9 Morales's esophagus determined by biopsy K22.70
[2023-08-04 12:44] VITALS: BP 124/86; PULSE 67; O2SAT 98; BMI 24.0
== END 2023-08-04 13:33 | disposition home or self-care (01) ==
PROVIDERS: PCP Internal Medicine; Visit Provider Internal Medicine
DX: Z00.00 Encounter for general adult medical examination without abnormal findings (principal); F33.41 Major depressive disorder, recurrent, in partial remission; M81.0 Age-related osteoporosis without current pathological fracture; R73.01 Impaired fasting glucose; F51.04 Psychophysiologic insomnia; K21.9 Gastro-esophageal reflux disease without esophagitis; K22.70 Barrett's esophagus without dysplasia
CPT/HCPCS: 99396

== ENCOUNTER 2023-08-07 07:32 | Outpatient (REF) | payer OTHER, SELFPAY ==
[2023-08-07 07:44] LABS: MANUAL DIFF FLAG NO
[2023-08-07 08:00] LABS: Basophils Percent Auto 0.3 % (0-2); Eosinophils Absolute Auto 0.2 X10*3/uL (0.0-0.4); Eosinophils Percent Auto 2.4 % (0-4); Hematocrit 37.9 % (37.0-47.0); Hemoglobin 12.2 g/dl (12.0-16.0); Imm Gran Abs Auto 0.03 X10*3/uL (0.00-0.03); Imm Gran Pct Auto 0.5 % (0.0-0.4); Lymphocytes Absolute Auto 2.8 X10*3/uL (1.2-4.9); Lymphocytes Percent Auto 44.7 % (20-40); Mean Corpuscular HGB Conc 32.2 g/dl (31.0-35.0); Mean Corpuscular Hemoglobin 28.8 pg (27.0-33.0); Mean Corpuscular Volume 89.6 fL (80.0-98.0); Mean Platelet Volume 10.1 fL (9.4-12.3); Monocytes Absolute Auto 0.6 X10*3/uL (0.1-1.2); Monocytes Percent Auto 9.6 % (2-11); Neutrophils Absolute Auto 2.7 x10*3/uL (2.0-8.3); Neutrophils Percent Auto 42.5 % (45-73); Platelet Count 314 X10*3/uL (160-400); Red Blood Count 4.23 X10*6/uL (4.20-5.50); Red Cell Distribution Width 13.2 % (11.0-16.0); White Blood Count 6.3 X10*3/uL (4.8-10.8)
[2023-08-07 08:32] LABS: Estimated Average Glucose 114 mg/dL; Hemoglobin A1c % 5.6 % (<6.0)
[2023-08-07 08:51] LABS: Alanine Aminotransferase 23 U/L (0-31); Anion Gap 11 (12-20); Aspartate Amino Transferase 23 U/L (5-31); Blood Urea Nitrogen 23 mg/dL (9-16); Calcium 9.1 mg/dL (8.4-10.2); Carbon Dioxide 25 mmol/L (22-29); Chloride 107 mmol/L (96-108); Cholesterol 187 mg/dL (<200); Estimated Glomerular Filt Rate > 60; Glucose Fasting 103 mg/dL (60-99); HDL Cholesterol 56 mg/dL (>40); LDL Cholesterol Calculated 108 mg/dL (<100); Potassium 4.2 mmol/L (3.3-5.1); Sodium 139 mmol/L (135-145); Triglycerides 115 mg/dL (<150)
[2023-08-07 08:54] LABS: Vitamin D 25-OH Total 65.9 ng/mL (>30)
== END 2023-08-07 07:33 | disposition home or self-care (01) ==
LOC: HO.LAB 07:32
PROVIDERS: PCP Internal Medicine; Visit Provider Internal Medicine
DX: R73.01 Impaired fasting glucose (principal); K21.9 Gastro-esophageal reflux disease without esophagitis; E89.40 Asymptomatic postprocedural ovarian failure; F33.41 Major depressive disorder, recurrent, in partial remission; F51.04 Psychophysiologic insomnia; Z13.1 Encounter for screening for diabetes mellitus; Z13.220 Encounter for screening for lipoid disorders
CPT/HCPCS: 36415; 80048; 80061; 82306; 83036; 84450; 84460; 85025

== ENCOUNTER 2023-09-06 12:12 | Outpatient (REF) | payer OTHER, SELFPAY | END 2023-09-06 12:13 | disposition home or self-care (01) | LOC: HO.HOSX 12:12 | DX: Z13.89 Encounter for screening for other disorder (principal) ==

== ENCOUNTER 2023-09-07 09:33 | Outpatient (AMB) | payer OTHER, SELFPAY ==
--- NOTE | 2023-09-07 09:49 | MHC.OFFVIS ---
Vital Signs 09/07/23 09:54 Height 5 ft Weight 133 lb BMI 26.0 Handedness Right Intake Visit Reasons: FC- LT wrist fx, old ulnar avulsion fx Intake Note: Cari is a 63 year old right hand dominant female who presents today with her sister for a new problem visit for left wrist fractures. DOI: 08/29/23. Patient reports she was jumping into a pool on vacation when she landed wrong resulting in her injuring her left foot. She says when she tried to walk after she fell and landed on an outstretched left hand resulting in immediate pain to her left wrist and foot after. She has complaints of mild pain when she moves her fingers and toes around and occasional numbness and tingling in her fingers. She was seen in [facility] ED on 08/29/23 where they took x-rays and placed in a splint. Her PCP prescribed her nabumetone but states this does not offer relief. Her sister brought in [facility] paper work to be completed as she is the healthcare corporate account director for her sister. hx of broken femur & surgery 1978, 1990. Allergies oxycodone [From Percocet] Adverse Reaction (Verified 09/07/23 09:55) Gastrointestinal Upset HPI HPI FC- LT wrist fx, old ulnar avulsion fx: Details: Patient is a 63-year-old female who presents for evaluation of left distal radius fracture and possible left calcaneus fracture, date of injury 08/29/2023. Patient was previously evaluated at [facility] Emergency Department. Patient reports that she was jumping into a pool while on vacation, hit her left foot on the bottom of the pool, began to experience pain, but remained trying to walk on her left foot. Pain worsened severely, and she then fell onto an outstretched left hand under to catch herself, after which she began experiencing significant pain in her left wrist. X-rays in the emergency department revealed impacted and angulated distal radius fracture and possible left calcaneus fracture. Today, the patient reports that she is still experiencing significant pain and discomfort in her left wrist, and expresses concern that her splint is too long. She does not report any pain in her heel at this time, but reports that she has been totally nonweightbearing since time of injury. [facility] Medical History Left wrist fracture Left calcaneal fracture Morales's esophagus determined by biopsy History of adenomatous polyp of colon Osteoporosis of lumbar spine History of bone density study Impaired fasting glucose Plantar fasciitis of right foot Trigger finger, left middle finger Left femoral shaft fracture Chronic insomnia Depression, major, recurrent, in partial remission Chronic GERD Surgical History History of surgery on lower extremity Hx of abdominoplasty Hx of colonoscopy History of esophagogastroduodenoscopy (EGD) Family History Brother Substance use disorder Daughter Mental health disorder Mother Alzheimer disease Social History Household Members: Family Housing: House Alcohol intake: current Alcohol intake frequency: a few times a week Alcohol type: beer Patient Tobacco Use Status: Former Tobacco user Years Smoked: 15 e-Cigarette/Vaping Use: Never Used service: No Current occupational status: employed 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 [employer] Sexual orientation: Straight/Heterosexual Gender identity: Female Cognitive needs: No Hearing needs: No Vision needs: Yes Review of Systems Const All systems reviewed & are unremarkable except as noted in HPI and below Physical Exam Vital Signs: BMI result Body Mass Index 26.0 Const Other: Patient is alert, oriented, cooperative, and in no acute distress HEENT Head: Yes normocephalic and Yes atraumatic Resp Effort & Inspection: normal respiratory effort and able to speak in complete sentences Cardio Jugular venous distension: no JVD Neuro General: gait normal Cognition (Neuro): normal cognition Extrem Other: Left hand and wrist Patient is alert, oriented, and in no acute distress. Neuro: Median, ulnar, radial nerves motor and sensory intact and sensation is normal to the tips of all digits. Vascular: Cap refill brisk Pain: Patient reports significant pain in her left wrist. ROM: With encouragement, patient is able to make a closed fist with her left hand. When out of splint, patient is able to flex and extend at the elbow fully Skin: No lacerations or abrasions. General: Ecchymosis of the left wrist noted No erythema or evidence of infection Psych: Appears grossly normal Affect normal Attitude cooperative Left foot exam Mild edema and ecchymosis of the left heel noted No open areas or lacerations noted Tenderness to palpation of the left heel noted Psych Appearance: grossly normal Mental Status: mental status grossly normal Results Reviewed Results Reviewed: X-rays obtained in the office today and independently reviewed by me, Андрей Harrell PA-C, demonstrate impacted, angulated fracture of the left distal radius, with loss of radial inclination and loss of dorsal angulation. X-rays of the left heel demonstrate area of lucency and cortical defect in the left calcaneus, likely due to fracture. Assessment & Plan Assessment & Plan (1) Left wrist fracture: Code(s): S62.102A - Fracture of unspecified carpal bone, left wrist, initial encounter for closed fracture Category: Medical Qualifiers: Encounter type: initial encounter Fracture type: closed Qualified Code(s): S62.102A - Fracture of unspecified carpal bone, left wrist, initial encounter for closed fracture (2) Left calcaneal fracture: Code(s): S92.002A - Unspecified fracture of left calcaneus, initial encounter for closed fracture Category: Medical Qualifiers: Calcaneus location: body Encounter type: initial encounter Fracture alignment: nondisplaced Fracture type: closed Qualified Code(s): S92.015A - Nondisplaced fracture of body of left calcaneus, initial encounter for closed fracture Plan 1. Left distal radius fracture After consultation and discussion with Dr. Souza, a joint treatment plan was formed: I educated the patient about the condition. I discussed both operative and nonoperative treatment options. The patient would like to proceed with surgery. The risks and benefits of operative treatment were discussed with the patient and the patient wishes to proceed with surgery. These risks include, but are not limited to, risk of damage to blood vessels, nerves, tendons, infection, recurrence, incomplete relief of preoperative symptoms, persistent pain, possible need for further surgery, and the risks associated with regional blocks and/or anesthesia. Plan is to take the patient to the operating room on , 09/10/2023 for the following procedures: 1. Left distal radius ORIF All of the preoperative paperwork including the consent was discussed today. All of the patient's questions were answered in the clinic today. The patient understands that they will be in contact with our surgical brace maker to discuss scheduling their procedure. Patient denies diabetes, blood thinners, asthma, heart issues, lung issues, kidney issues, or current smoking. Dr. Souza addendum: Patient discussed with me and radiographs reviewed. I Formulated the plan with MECEH Hayes. The plan will be to bring her to the operating room on for an open reduction internal fixation of her left distal radius fracture 2. Left calcaneus fracture Stat CT scan ordered today in order to confirm presence of fracture CT should be performed prior to DOS Patient will follow-up after CT scan to discuss further treatment options Patient was placed in a boot today and made toe touch weight-bearing if necessary for transfers, otherwise nonweightbearing Patient is instructed to continue use of the platform walker given to her at [facility] Orders: Orders XR calcaneus LT min 2V Today S92.002A - Unspecified fracture of left calcaneus, initial encounter for closed fracture CT foot LT wo IV con Today S92.002A - Unspecified fracture of left calcaneus, initial encounter for closed fracture Coding Level of Care Code New Pt Level 4 (33758) Diagnoses Closed fracture of left wrist, initial encounter S62.102A Encounter type: initial encounter Fracture type: closed Closed nondisplaced fracture of body of left calcaneus, initial encounter S92.015A Calcaneus location: body Encounter type: initial encounter Fracture alignment: nondisplaced Fracture type: closed
[2023-09-07 09:54] VITALS: BMI 26.0
== END 2023-09-07 11:08 | disposition home or self-care (01) ==
PROVIDERS: PCP Internal Medicine
DX: S62.102A Fracture of unspecified carpal bone, left wrist, initial encounter for closed fracture (principal); S92.015A Nondisplaced fracture of body of left calcaneus, initial encounter for closed fracture
CPT/HCPCS: 99204

== ENCOUNTER 2023-09-07 10:07 | Outpatient (REF) | payer OTHER, SELFPAY ==
--- NOTE | ~2023-09-07 | XR_ITS ---
EXAMINATION: XR WRIST, LEFT CLINICAL INFORMATION: Left wrist pain. COMPARISON: Left wrist 08/29/2023 TECHNIQUE: 3 views of the left wrist. FINDINGS: Cast obscures detail. There is a transverse fracture involving the distal radial metaphysis. There is some impaction and lateral displacement of the distal fracture fragment. No significant dorsal angulation. When comparison is made to the 08/29/2023 study, the impaction appears increased and the lateral displacement appears slightly increased. XR/XR wrist LT min 3V IMPRESSION: Distal radial fracture as described above. Electronically signed by: Jake Escoto MD 10/29/2023 09:58 PM EDT
--- NOTE | ~2023-09-07 | XR_ITS ---
EXAMINATION: XR CALCANEUS, LEFT CLINICAL INFORMATION: Fracture of calcaneus. COMPARISON: 08/29/2023 TECHNIQUE: Lateral and axial views of the left calcaneus were obtained. FINDINGS: There is a fracture through the body of the calcaneus with minimal displacement. This is better demonstrated on the prior radiographs from 08/29/2023. XR/XR calcaneus LT min 2V IMPRESSION: Calcaneal fracture. Electronically signed by: Jake Escoto MD 10/29/2023 09:58 PM EDT
== END 2023-09-07 10:08 | disposition home or self-care (01) ==
LOC: HO.HOSX 10:07
DX: S62.102A Fracture of unspecified carpal bone, left wrist, initial encounter for closed fracture (principal); S92.015A Nondisplaced fracture of body of left calcaneus, initial encounter for closed fracture
CPT/HCPCS: 73110; 73650; 99202

== ENCOUNTER 2023-09-11 10:46 | Day surgery (SDC) | payer OTHER, SELFPAY ==
--- NOTE | 2023-09-09 12:36 | HO.ANESPROP2 ---
Documented by User: Sarai Price NP 09/09/23 12:37 HPI - Anesthesia Eval Consult details Narrative: 63yo F for Left Radius Distal Fracture ORIF s/p EGD and [place] 06/2023 with [facility] Active Problems Active Problems: All Active Problems Left wrist fracture (Acute) Left calcaneal fracture (Acute) Morales's esophagus determined by biopsy (Acute) History of adenomatous polyp of colon (Acute) Osteoporosis of lumbar spine (Acute) Impaired fasting glucose (Acute) Chronic insomnia (Acute) Depression, major, recurrent, in partial remission (Acute) Chronic GERD (Acute) Past Medical History Medical History Left wrist fracture Left calcaneal fracture Morales's esophagus determined by biopsy History of adenomatous polyp of colon Osteoporosis of lumbar spine History of bone density study Impaired fasting glucose Plantar fasciitis of right foot Trigger finger, left middle finger Left femoral shaft fracture Chronic insomnia Depression, major, recurrent, in partial remission Chronic GERD Family History Family History Brother Substance use disorder Daughter Mental health disorder Mother Alzheimer disease Family history of problems with anesthesia: No Surgical History Surgical History History of surgery on lower extremity Hx of abdominoplasty Hx of colonoscopy History of esophagogastroduodenoscopy (EGD) History of Problems with Anesthesia: No Social History Social History Household Members: Family Housing: House Alcohol intake: current Alcohol intake frequency: a few times a week Alcohol type: beer Patient Tobacco Use Status: Former Tobacco user Years Smoked: 15 e-Cigarette/Vaping Use: Never Used Use of substances other than those prescribed or required for medical reasons: No Are you DNR?: No Advance Directives: No Advance Directives Information Provided: Yes service: No Current occupational status: employed 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 Sexual orientation: Straight/Heterosexual Gender identity: Female Cognitive needs: No Hearing needs: No Vision needs: Yes Meds Allergies Allergy/AdvReac Type Severity Reaction Status Date / Time oxycodone [From Percocet] AdvReac Nausea and Verified 09/11/23 11:55 Vomiting Home Medications ?Medication ?Instructions ?Recorded ?Confirmed ?Last Taken ?Type zolpidem 10 mg tablet 10 mg PO BEDTIME PRN Insomnia 03/26/21 08/04/23 Unknown History fluoxetine 20 mg capsule 20 mg PO QAM 07/31/22 08/04/23 Unknown History cholecalciferol (vitamin D3) 25 25 mcg PO DAILY 03/25/23 08/04/23 Unknown History mcg (1,000 unit) capsule Exam Pertinent Lab Results Pertinent Lab Results: Laboratory Tests 08/07/23 07:42 WBC 6.3 Hgb 12.2 Hct 37.9 Plt Count 314 Sodium 139 Potassium 4.2 Chloride 107 Carbon Dioxide 25 BUN 23 H Creatinine 0.74 Assessment and Plan Assessment Anesthesia Assessment: Chart Reviewed Final Anesthetic Review Family History of Problems with Anesthesia: No History of Problems with Anesthesia: No Documented by User: Nan Simms MD 09/11/23 14:22 PMFSH Past Medical History Medical History Left wrist fracture Left calcaneal fracture Morales's esophagus determined by biopsy History of adenomatous polyp of colon Osteoporosis of lumbar spine History of bone density study Impaired fasting glucose Plantar fasciitis of right foot Trigger finger, left middle finger Left femoral shaft fracture Chronic insomnia Depression, major, recurrent, in partial remission Chronic GERD Family History Family History Brother Substance use disorder Daughter Mental health disorder Mother Alzheimer disease Surgical History Surgical History History of surgery on lower extremity Hx of abdominoplasty Hx of colonoscopy History of esophagogastroduodenoscopy (EGD) Social History Social History Household Members: Family Housing: House Alcohol intake: current Alcohol intake frequency: a few times a week Alcohol type: beer Patient Tobacco Use Status: Former Tobacco user Years Smoked: 15 e-Cigarette/Vaping Use: Never Used Use of substances other than those prescribed or required for medical reasons: No Are you DNR?: No Advance Directives: No Advance Directives Information Provided: Yes service: No Current occupational status: employed 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 Sexual orientation: Straight/Heterosexual Gender identity: Female Cognitive needs: No Hearing needs: No Vision needs: Yes Meds Allergies Allergy/AdvReac Type Severity Reaction Status Date / Time oxycodone [From Percocet] AdvReac Nausea and Verified 09/11/23 11:55 Vomiting Home Medications ?Medication ?Instructions ?Recorded ?Confirmed ?Last Taken ?Type zolpidem 10 mg tablet 10 mg PO BEDTIME PRN Insomnia 03/26/21 08/04/23 Unknown History fluoxetine 20 mg capsule 20 mg PO QAM 07/31/22 08/04/23 Unknown History cholecalciferol (vitamin D3) 25 25 mcg PO DAILY 03/25/23 08/04/23 Unknown History mcg (1,000 unit) capsule Exam Airway Mallampati Class: II TM Dist: >3cm Neck ROM: Full Heart: rrr Lungs: cta Assessment and Plan Assessment Anesthesia Assessment: Anesthesia Plan Discussed Final Anesthetic Review NPO: Yes ASA Class: III Final Preanesthetic Review: No Changes in Pt Med Stat, Meds/Allgs Chart Reviewed, Consent Obtained/Reviewed and Anes Risks/Benef Reviewed Patient Risk: Intermediate Procedure Risk: Intermediate Anesthetic Plan Anesthetic Plan: GA and Regional Block Disposition: Standard PACU
[2023-09-11] VITALS (8 sets, daily range): BP systolic 122–151; BP diastolic 79–91; PULSE 63–80; RESP 12–16; TEMP 36.1–36.7; O2SAT 92–96; BMI 24.8
--- NOTE | ~2023-09-11 | FL_ITS ---
EXAMINATION: FLUOROSCOPY GUIDANCE FOR NEEDLE PLACEMENT CLINICAL INFORMATION: ORIF left distal radius fracture. COMPARISON: Plain films 09/07/2023 left wrist. TECHNIQUE: Fluoroscopic guidance was provided to Dr. Phillip and during the left distal radius ORIF. FINDINGS: 2 submitted images demonstrate plate and screw fixation of the distal radial fracture. There is anatomic alignment. There is no complication evident. FLUOROSCOPY TIME: 16.84 seconds Number of images: 2 DOSE AREA PRODUCT: 0.4231 mGy-m2 (milligray-meter squared) FL/FL guidance in OR IMPRESSION: Fluoroscopic guidance provided. Please refer to the full operative report for details. Electronically signed by: Arden Benoit MD 11/17/2023 09:08 AM EDT
[2023-09-11] MEDS: Lactated Ringers 1,000 ML 100 ML IVCONT (12:19)
--- NOTE | 2023-09-11 13:53 | P.HPSUR_ITS ---
Pre-Procedural Eval Section A - 24 Hr Update-Section A only Date of Service: 09/11/23 The patient is an INPATIENT: No Changes since office visit: No Cold of Flu in the past 2 weeks, No New Medical Problems, No Changes in Medication and No Patient answered all questions The patient has been examined within 24 hours of the surgical procedure. The History & Physical has been completed within 30 days and I have reviewed it.: Yes Section B - Complete if H&P > 30 days Chief Complaint: Unspecified fracture of the lower end of left radi Allergies: Allergies Allergy/AdvReac Type Severity Reaction Status Date / Time oxycodone [From Percocet] AdvReac Nausea and Verified 09/11/23 11:55 Vomiting Exam Exam Comment: Left distal radius fracture Normal sensation to the tips of all digits today in preop She can weakly make a fist and extend all of her digits. Plan I have reviewed the history and physical and performed a pertinent physical examination on my patient. No changes have occurred unless specified. The risks and benefits of operative treatment were discussed with the patient and the patient wishes to proceed with surgery. These risks include, but are not limited to risk of damage to blood vessels, nerves, tendons, infection, re currence, incomplete relief of preoperative symptoms, persistent pain, possible need for further surgery and the risks associated with regional blocks and anesthesia. The plan is to take the patient to the operating room today for the following procedures: 1. Left distal radius open reduction internal fixation 2. [ ] All of the preoperative paperwork including the consent was filled out today. All the patient's questions were answered. Time Spent With Patient Time: Total time managing care of this patient today ____ minutes.
--- NOTE | 2023-09-11 13:56 | P.OP_ITS ---
Operative Note Operative Note Date of Service: 09/11/23 Narrative: Operative Note Narrative: Preop diagnosis: 1. Left Distal radius fracture Postop diagnosis: Same Procedure: 1. Left Distal radius fracture open reduction internal fixation, extra-articular Surgeon: Saida Souza MD [employer]as Statistical Programmer: None Anesthesia: General anesthesia plus regional block Findings: Left volarly displaced and apex volar distal radius fracture, extra- articular Implants: A 3 hole narrow Accu Med volar locking plate, with 4x 2.3 mm locking pegs/screws, and 3 3.5 mm cortical screws Tourniquet time: 56 minutes EBL: 5.0 ml Specimen: None Drains: None Complications: None Disposition: Brought to the recovery room in stable condition Plan: Follow-up in 10-14 days for wound check, suture removal and postop radiographs The patient will be placed in either a volar wrist splint. Encouraged no lifting of anything heavier than a cell phone. Please encourage active and passive range of motion of the digits. Follow-up at 4-5 weeks postop for repeat radiographs. Indications: The patient is a 63 year old woman with a displaced left distal radius fracture . The risks and benefits of operative treatment, including but not limited to risk of damage to blood vessels, nerves, tendons, infection, recurrence, persistent pain or numbness, incomplete resolution of preoperative symptoms, or need for further surgery were discussed with the patient and they wished to proceed with surgery. Procedure: Once consent was obtained patient was brought back to the operating suite and placed in the operating table in a supine position. A regional block was performed by the anesthesia team. Perioperative antibiotics and anesthesia was administered by the anesthesia team. A tourniquet was applied to the proximal aspect of the left upper extremity and the limb was prepped and draped in a standard surgical fashion. The limb was elevated exsanguinated with Esmarch bandage and the tourniquet inflated to 250 mm of mercury for a total tourniquet time of 56 minutes. The FluoroScan was used throughout the case to assess our reduction, and facilitate implant placement. A gentle closed reduction was 1st performed on the patient's left distal radius fracture. Was assessed radiographically before proceeding with the reduction internal fixation. I then made an 8 cm longitudinal incision over the distal aspect of the flexor carpi radialis tendon. The incision was made through the skin to the subcutaneous tissue using a 15. Blade. Then carefully dissected down to flexor carpi radialis tendon she tenotomy scissors. The FCR tendon sheath was then incised longitudinally using tenotomy scissors under direct visualization. The FCR tendon was then retracted ulnarly. I then made a longitudinal incision in the volar forearm fascia through the floor of FCR tendon sheath using tenotomy scissors under direct visualization. I identified the interval between the radial artery and the flexor tendons. This interval was developed further with my index finger, relea sing some of the muscular fibers of the flexor pollicis longus. A dull weatlander retractor was then placed. I then created an ulnarly based flap of the pronator quadratus by releasing the radial and distal edges using a 15. Blade. A Hunter elevator was used to elevate the pronator quadratus from the volar surface of the distal radius. This then revealed to us our distal radius fracture. An open reduction was then performed on our distal radius fracture. I then placed a short narrow 3 hole Accu Med volar locking plate on the volar surface of the distal radius. I placed a single K-wire through the distal aspect of the plate and into the distal radius. This was assessed using fluoroscopic images. I was satisfied with the placement of our plate. I then placed 4x 2.3 mm locking screws/pegs in the distal aspect of the plate and distal radius by 1st drilling bicortically with a 1.8 mm drill bit, measuring with a depth gauge, and placing the appropriate length locking screws/pegs. The placement of our plate and screws was then assessed again using fluoroscopic images. The once satisfied with the placement of the volar locking plate and screws on the distal aspect of the distal radius, the plate was then reduced to the shaft of the radius. I then placed 3 3.5 mm cortical screws to the proximal aspect of the plate and into the shaft of the radius. This was done by 1st drilling bicortically with a 2.8 mm drill bit, measuring with a depth gauge, and placing the appropriate length screw. Final radiographs were then obtained. The DRUJ was assessed and found to be stable on exam. I was satisfied with our reduction and placement of all implants. At this point the wound was irrigated with normal saline. The pronator quadratus was reduced back over the volar locking plate using some 3-0 Vicryl suture material. The tourniquet was then deflated and hemostasis was obtained with a brief period of local pressure and bipolar monopolar electrocautery. The subcutaneous layer was then reapproximated using some 4-0 Vicryl suture, and the skin edges were reapproximated using some 5 0 Prolene suture. The wound was then infiltrated with some 1% lidocaine with epinephrine postop pain control. A sterile dressing and a short dorsal splint allowing for active flexion and extension of the digits was applied. The patient appears to have tolerated the procedure well and with no complications. All digits were well vascularized conclusion of the case.
[2023-09-11] MEDS: ondansetron HCL 4 MG/2 ML VIAL IVPUSH (16:09)
== END 2023-09-11 17:09 | disposition home or self-care (01) ==
PROVIDERS: PCP Internal Medicine; Visit Provider Orthopaedic Surgery
PROC: (CPT 25607; principal; 2023-09-11 13:00)
DX: S52.502A Unspecified fracture of the lower end of left radius, initial encounter for closed fracture (principal); S92.015A Nondisplaced fracture of body of left calcaneus, initial encounter for closed fracture; R20.0 Anesthesia of skin; W18.39XA Other fall on same level, initial encounter; Y93.01 Activity, walking, marching and hiking; Y92.89 Other specified places as the place of occurrence of the external cause; Y99.8 Other external cause status; Z87.81 Personal history of (healed) traumatic fracture; M81.0 Age-related osteoporosis without current pathological fracture; K22.70 Barrett's esophagus without dysplasia; K21.9 Gastro-esophageal reflux disease without esophagitis; R73.02 Impaired glucose tolerance (oral); M72.2 Plantar fascial fibromatosis; F33.41 Major depressive disorder, recurrent, in partial remission; Z88.5 Allergy status to narcotic agent; Z98.890 Other specified postprocedural states; Z87.891 Personal history of nicotine dependence
CPT/HCPCS: 25607; C1713; J0131; J0665; J0690; J1100; J1885; J2250; J2405; J2704; J2795; J3010

== ENCOUNTER → 2023-09-11 10:46 | Outpatient (BNV) | payer OTHER, SELFPAY | PROVIDERS: PCP Internal Medicine; Visit Provider Orthopaedic Surgery | DX: S52.552A Other extraarticular fracture of lower end of left radius, initial encounter for closed fracture (principal) | CPT/HCPCS: 25607 ==

== ENCOUNTER 2023-09-15 08:49 | Outpatient (REF) | payer OTHER, SELFPAY ==
[2023-09-15 12:17] LABS: Alkaline Phosphatase 65 U/L (39-117)
[2023-09-15 12:30] LABS: Free T4 (Free Thyroxine) 0.99 ng/dL (0.71-1.85); Thyroid Stimulating Hormone 0.55 uIU/mL (0.32-4.0)
[2023-09-17 23:04] LABS: Prot Elec - Albumin 3.9 g/dL (3.8-4.8); Prot Elec - Alpha1 0.3 g/dL (0.2-0.3); Prot Elec - Alpha2 0.8 g/dL (0.5-0.9); Prot Elec - Beta 1 0.4 g/dL (0.4-0.6); Prot Elec - Beta 2 0.4 g/dL (0.2-0.5); Prot Elec - Gamma 1.4 g/dL (0.8-1.7); Prot Elec - Total Protein 7.1 g/dL (6.1-8.1)
== END 2023-09-15 08:50 | disposition home or self-care (01) ==
LOC: HO.LAB 08:49
PROVIDERS: PCP Internal Medicine; Visit Provider Internal Medicine Endocrinology, Diabetes & Metabolism
DX: M81.0 Age-related osteoporosis without current pathological fracture (principal)
CPT/HCPCS: 84075; 84165; 84439; 84443; 86335; 99202

== ENCOUNTER 2023-09-15 08:49 | Outpatient (AMB) | payer OTHER, SELFPAY ==
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
[2023-09-15 09:03] VITALS: BP 120/76; PULSE 64
== END 2023-09-15 09:41 | disposition home or self-care (01) ==
PROVIDERS: PCP Internal Medicine; Visit Provider Internal Medicine Endocrinology, Diabetes & Metabolism
DX: M81.0 Age-related osteoporosis without current pathological fracture (principal)
CPT/HCPCS: 99204

== ENCOUNTER 2023-09-17 09:22 | Outpatient (REF) | payer OTHER, SELFPAY ==
[2023-09-17 10:39] LABS: Total Volume 24 Hour Urine 1750 mL
[2023-09-17 11:46] LABS: Creatinine, 24Hr Urine 1.2 G/Day (1.0-2.0); Creatinine, mg/dL 66.75
[2023-09-19 18:09] LABS: Calcium, 24 Hr Urine 152 mg/24 h; Calcium/Creatinine Ratio 123 mg/g creat (30-275); Creatinine 24Hr Urine 1.24 g/24 h (0.50-2.15)
== END 2023-09-17 09:23 | disposition home or self-care (01) ==
LOC: HO.LNP 09:22
PROVIDERS: Visit Provider Internal Medicine Endocrinology, Diabetes & Metabolism
DX: M81.0 Age-related osteoporosis without current pathological fracture (principal)
CPT/HCPCS: 82340; 82570

== ENCOUNTER 2023-09-18 08:59 | Outpatient (REF) | payer OTHER, SELFPAY ==
--- NOTE | ~2023-09-18 | CT_ITS ---
EXAMINATION: CT FOOT WITHOUT CONTRAST, LEFT CLINICAL INFORMATION: Calcaneal fracture. COMPARISON: Left foot radiographs dated 08/29/2023. TECHNIQUE: Contiguous axial CT images of the left foot were obtained without contrast. Multiplanar reformats were provided and reviewed. This CT examination was performed using dose optimization techniques as appropriate, variously including the following: *Automated exposure control *Adjustment of mA and/or kV according to patient size (this includes techniques or standardized protocols for targeted exams where dose is matched to indication/reason for exam; i.e. extremities or head) *Use of iterative reconstruction technique. DOSE: 98 mGycm. FINDINGS: Mildly displaced and comminuted fracture through the body of the calcaneus with multiple oblique components. There is an oblique component to the fracture, which contacts the posterior subtalar articular surface where cortical step-off measures up to 0.4 cm in AP dimension. The fracture line contacts the plantar calcaneal surface with cortical step off measuring up to 0.1 cm. There are multiple extensions to the medial and lateral cortices with the largest fracture gap/peripheral cerebral measuring up to 0.3 cm. No extension of the fracture line to the calcaneocuboid articular surface. No dislocation. Ankle mortise is maintained. No joint space narrowing or marginal osteophytes. No concerning lytic or blastic osseous lesion. No abnormal soft tissue mass or fluid collection. Dorsal/lateral forefoot subcutaneous edema. The visualized flexor and extensor tendons are grossly intact; however, evaluation is limited on CT examination. CT/CT foot LT wo IV con IMPRESSION: 1. Mildly displaced and comminuted fracture through the body of the calcaneus with multiple oblique components. Cortical step-off at the posterior subtalar articular surface measuring up to 0.4 cm. Cortical step-off at the plantar calcaneal surface measuring up to 0.1 cm. No extension of the fracture line to the calcaneocuboid articular surface. 2. Dorsal/lateral forefoot subcutaneous edema.
== END 2023-09-18 09:00 | disposition home or self-care (01) ==
LOC: HO.CT 08:59
PROVIDERS: PCP Internal Medicine
DX: S92.002D Unspecified fracture of left calcaneus, subsequent encounter for fracture with routine healing (principal)
CPT/HCPCS: 73700

== ENCOUNTER 2023-09-22 10:23 | Outpatient (REF) | payer OTHER, SELFPAY ==
--- NOTE | ~2023-09-22 | XR_ITS ---
EXAMINATION: XR WRIST, LEFT CLINICAL INFORMATION: Pain. COMPARISON: Prior radiographs, most recently 09/05/2023; intraoperative fluoroscopy dated 09/11/2023. TECHNIQUE: PA, lateral, and oblique views of the left wrist. FINDINGS: There is mild bony demineralization. An intact orthopedic plate and fixator screws are applied to the distal left radius. The fracture shows stable alignment. No hardware failure or loosening is seen. There is a slight ulnar positive variance. A smoothly marginated old, healed fracture versus accessory ossification center is seen of the radial styloid. The proximal distal carpal rows are intact. There is no focal soft tissue swelling, gas or foreign body. XR/XR wrist LT min 3V IMPRESSION: There is well-maintained alignment status post ORIF of a distal left radial metaphyseal fracture. No hardware failure or loosening is seen. Electronically signed by: Isiah Hills MD 10/19/2023 04:18 PM EDT Workstation: -[id number]
== END 2023-09-22 10:24 | disposition home or self-care (01) ==
LOC: HO.HOSX 10:23
PROVIDERS: Visit Provider Orthopaedic Surgery
DX: M25.532 Pain in left wrist (principal); S52.502A Unspecified fracture of the lower end of left radius, initial encounter for closed fracture
CPT/HCPCS: 73110; 99212

== ENCOUNTER 2023-09-22 14:11 | Outpatient (AMB) | payer OTHER, SELFPAY ==
--- NOTE | 2023-09-22 14:21 | A.OFFVIS_ITS ---
Intake Visit Reasons: PO LT distal radius ORIF 09/11/23 AR Intake Note: Cari is a 63 yo right hand dominant female who presents today with her sister post-operatively s/p left distal radius ORIF 09/11/[address] Souza. Patient reports on and off numbness and tingling. Denies locking on fingers. Patient describes pain as 6 on a 0-10 pain scale. Reports taking Percocet for pain with relief. Patient states she would like a prescription of ondasetron for nausea caused by Percocets. Sutures removed in office today and steri strips applied. Allergies oxycodone [From Percocet] Adverse Reaction (Verified 09/22/23 14:24) Nausea and Vomiting HPI HPI PO LT distal radius ORIF 09/11/23 AR: Details: Cari is a 63 year old right hand dominant woman who presents S/P left distal radius ORIF, DOS: 09/11/23. She complains of pain still in her wrist, which she has been managing with Percocets. She says this is causing her nausea and she would like medication to manage this. She reports intermittent numbness & tingling in her fingers since her surgery. She says she has been working on finger ROM exercises at home. [facility] Medical History (Updated 09/22/23 @ 14:55 by Harjeet Webb) Left wrist fracture Left calcaneal fracture Morales's esophagus determined by biopsy History of adenomatous polyp of colon Osteoporosis of lumbar spine History of bone density study Impaired fasting glucose Plantar fasciitis of right foot Trigger finger, left middle finger Left femoral shaft fracture Chronic insomnia Depression, major, recurrent, in partial remission Chronic GERD Surgical History (Updated 09/15/23 @ 09:06 by AZEEM Felix) H/O left wrist surgery History of surgery on lower extremity Hx of abdominoplasty Hx of colonoscopy History of esophagogastroduodenoscopy (EGD) Family History Brother Substance use disorder Daughter Mental health disorder Mother Alzheimer disease Social History (Updated 09/22/23 @ 14:26 by AZEEM Ross) Household Members: Family Housing: House Alcohol intake: current Alcohol intake frequency: a few times a week Alcohol type: beer Patient Tobacco Use Status: Former Tobacco user Years Smoked: 15 e-Cigarette/Vaping Use: Never Used service: No Current occupational status: employed 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 Sutures removed and Steri-Strips applied She can make a fist and extend all her digits ~30 degrees wrist supination ~40 degrees wrist pronation Sensation is intact Cap refill is brisk Radiographs: 3 views of the left wrist were taken and viewed by me today in clinic. They show a distal radius fracture with satisfactory fracture alignment and position of all implants. Psych Appearance: grossly normal Affect: normal affect Attitude: cooperative Assessment & Plan Assessment & Plan (1) Closed fracture of left distal radius: Code(s): S52.502A - Unspecified fracture of the lower end of left radius, initial encounter for closed fracture Category: Medical Plan Assessment & Plan: 1. Left distal radius fracture, S/P ORIF DOI: 08/29/23 DOS: 09/11/23 2. Left hand numbness and tingling, S/P distal radius ORIF DOS: 09/11/23 To the tips of all digits Intermittent & occasional, patient reports this began following her surgery The patient appears to be doing well post-operatively I educated her about the post-operative course She will discontinue her Percocets at this time, and if she has any pain she can manage this with Tylenol We will continue to monitor her numbness and tingling to see if this improves She was fitted for a velcro wrist splint, to be worn like a cast except for showering for the next 2 weeks. After 2 weeks she will begin to remove her splint when at home & at rest to work on ROM. She will continue to wear it when out of the house with daily activity for the following 2 weeks I discussed activity modifications, she is to lift nothing heavier than a cellphone for the next 3-4 weeks She is not to push up with her left hand, or lean onto her left hand, for at least the next month. I explained that she needs to remember this if she is given a walker to use for her left calcaneus fracture. She will need a platform walker. She is following with Dr. Strong later this week for her calcaneus fracture. She will follow up in 3-4 weeks, with X-rays 3V attn L wrist Scribed for Saida Souza MD by Harjeet Webb, medical assistant ob gyn, on 09/22/23 at 3:15 PM, EST. Orders: Orders XR wrist LT min 3V Today M25.532 - Pain in left wrist Coding Level of Care Code Global (49382) Diagnoses Closed fracture of left distal radius S52.502A
== END 2023-09-22 16:16 | disposition home or self-care (01) ==
PROVIDERS: PCP Internal Medicine; Visit Provider Orthopaedic Surgery
DX: S52.502A Unspecified fracture of the lower end of left radius, initial encounter for closed fracture (principal)
CPT/HCPCS: 99024

== ENCOUNTER 2023-09-24 14:22 | Outpatient (AMB) | payer OTHER, SELFPAY ==
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
== END 2023-09-24 15:19 | disposition home or self-care (01) ==
PROVIDERS: PCP Internal Medicine; Visit Provider Orthopaedic Surgery
DX: S92.012A Displaced fracture of body of left calcaneus, initial encounter for closed fracture (principal)
CPT/HCPCS: 99213

== ENCOUNTER → 2023-09-24 14:22 | Outpatient (BNVA) | payer OTHER, SELFPAY | PROVIDERS: PCP Internal Medicine; Visit Provider Orthopaedic Surgery | DX: S92.015A Nondisplaced fracture of body of left calcaneus, initial encounter for closed fracture (principal) | CPT/HCPCS: 99212 ==

== ENCOUNTER 2023-10-20 09:29 | Outpatient (AMB) | payer OTHER, SELFPAY ==
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
[2023-10-20 09:49] VITALS: BP 108/68; PULSE 77; BMI 24.4
== END 2023-10-20 10:02 | disposition home or self-care (01) ==
PROVIDERS: PCP Internal Medicine; Visit Provider Internal Medicine Endocrinology, Diabetes & Metabolism
DX: M81.0 Age-related osteoporosis without current pathological fracture (principal)
CPT/HCPCS: 99213

== ENCOUNTER → 2023-10-20 09:29 | Outpatient (BNVA) | payer OTHER, SELFPAY | PROVIDERS: PCP Internal Medicine; Visit Provider Internal Medicine Endocrinology, Diabetes & Metabolism | DX: M81.0 Age-related osteoporosis without current pathological fracture (principal) | CPT/HCPCS: 99212 ==

== ENCOUNTER 2023-10-20 10:07 | Outpatient (REF) | payer OTHER, SELFPAY ==
[2023-10-20 11:05] LABS: Phosphorus 3.6 mg/dL (2.7-4.5)
== END 2023-10-20 10:08 | disposition home or self-care (01) ==
LOC: HO.10HDL 10:07
PROVIDERS: Visit Provider Internal Medicine Endocrinology, Diabetes & Metabolism
DX: M81.0 Age-related osteoporosis without current pathological fracture (principal)
CPT/HCPCS: 36415; 84100

== ENCOUNTER 2023-10-21 12:25 | Outpatient (REF) | payer OTHER, SELFPAY ==
--- NOTE | ~2023-10-21 | XR_ITS ---
EXAMINATION: XR WRIST, LEFT CLINICAL INFORMATION: Left wrist pain. COMPARISON: 09/22/2023 TECHNIQUE: PA, lateral, and oblique views of the left wrist. FINDINGS: The plate and screw fixation construct of the palmar margin of the distal radius is unchanged in positioning. Bridging bone is evident in the fracture site. Ulnar styloid appears fragmented chronically without appreciable osseous union. Slight negative ulnar variance (2 mm). Joint spaces appear well-preserved. XR/XR wrist LT min 3V IMPRESSION: Status post ORIF of the distal radial fracture with progressive healing. Electronically signed by: Arden Vásquez MD 10/27/2023 02:05 PM EDT
== END 2023-10-21 12:26 | disposition home or self-care (01) ==
LOC: HO.HOSX 12:25
PROVIDERS: PCP Internal Medicine; Visit Provider Orthopaedic Surgery
DX: M25.532 Pain in left wrist (principal); S52.502D Unspecified fracture of the lower end of left radius, subsequent encounter for closed fracture with routine healing; X58.XXXD Exposure to other specified factors, subsequent encounter; Z98.890 Other specified postprocedural states
CPT/HCPCS: 73110; 99212

== ENCOUNTER 2023-10-21 13:04 | Outpatient (AMB) | payer OTHER, SELFPAY ==
--- NOTE | 2023-10-21 13:06 | A.OFFVIS_ITS ---
Vital Signs 10/21/23 13:07 Height 4 ft 11 in Weight 121 lb BMI 24.4 Intake Visit Reasons: PO LT distal radius ORIF 09/11/23 AR-w/xray Intake Note: Cari is a 63 yo right hand dominant female who presents today post-operatively s/p left distal radius ORIF done 09/11/[address] Souza. Patient reports on and off morning numbness and tingling. Denies locking on fingers. Patient reports on and off burning sensation but she is unsure if this is relater to her tendonitis. Patient is not taking anything for pain regularly. Allergies oxycodone [From Percocet] Adverse Reaction (Verified 10/21/23 13:13) Nausea and Vomiting HPI HPI PO LT distal radius ORIF 09/11/23 AR-w/xray: Details: Cari is a 63 year old right hand dominant woman who presents S/P left distal radius ORIF, DOS: 09/11/23. She says she is doing well overall. She reports intermittent numbness & tingling in her fingers since her surgery, this now occurs primarily in the mornings. She says she has been working on finger ROM exercises at home [facility] Medical History (Updated 09/22/23 @ 14:55 by Harjeet Webb) Left wrist fracture Left calcaneal fracture Morales's esophagus determined by biopsy History of adenomatous polyp of colon Osteoporosis of lumbar spine History of bone density study Impaired fasting glucose Plantar fasciitis of right foot Trigger finger, left middle finger Left femoral shaft fracture Chronic insomnia Depression, major, recurrent, in partial remission Chronic GERD Surgical History H/O left wrist surgery History of surgery on lower extremity Hx of abdominoplasty Hx of colonoscopy History of esophagogastroduodenoscopy (EGD) Family History Brother Substance use disorder Daughter Mental health disorder Mother Alzheimer disease Social History Household Members: Family Housing: House Alcohol intake: current Alcohol intake frequency: a few times a week Alcohol type: beer Patient Tobacco Use Status: Former Tobacco user Years Smoked: 15 e-Cigarette/Vaping Use: Never Used service: No Current occupational status: employed 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 Fracture completely nontender. DRUJ feels stable on exam, though there was a slight click during testing She can make a fist and extend all her digits ~60 degrees wrist supination ~70 degrees wrist pronation ~65 degrees wrist flexion ~30 degrees wrist extension Sensation is intact Cap refill is brisk Radiographs: 3 views of the left wrist were taken and viewed by me today in clinic. They show a distal radius fracture with satisfactory fracture alignment and position of all implants, and good evidence of interval bony healing. Psych Appearance: grossly normal Affect: normal affect Attitude: cooperative Assessment & Plan Assessment & Plan (1) Closed fracture of left distal radius: Code(s): S52.502A - Unspecified fracture of the lower end of left radius, initial encounter for closed fracture Category: Medical Plan Assessment & Plan: 1. Left distal radius fracture, S/P ORIF DOI: 08/29/23 DOS: 09/11/23 2. Left hand numbness and tingling, S/P distal radius ORIF DOS: 09/11/23 To the tips of all digits Intermittent & occasional, patient reports this began following her surgery. No report of numbness today. The patient appears to be doing well post-operatively I educated her about the post-operative course She will discontinue her wrist splint at this time I discussed activity modifications, she is to work on ROM exercises at home, including pronosupination She is able to use her hand for more lightweight activities We offered OT hand therapy but she wishes to try doing her range of motion exercises on her own. She can follow up prn, she may contact the clinic if she would like a referral to OT hand therapy. Scribed for Saida Souza MD by Harjeet Webb medical technologist microbiology, on 10/21/23 at 1:15 PM, EST. Orders: Orders XR wrist LT min 3V Today M25.532 - Pain in left wrist Coding Level of Care Code Global (56230) Diagnoses Closed fracture of left distal radius S52.502A
[2023-10-21 13:07] VITALS: BMI 24.4
== END 2023-10-21 13:26 | disposition home or self-care (01) ==
PROVIDERS: PCP Internal Medicine; Visit Provider Orthopaedic Surgery
DX: S52.502A Unspecified fracture of the lower end of left radius, initial encounter for closed fracture (principal)
CPT/HCPCS: 99024

== ENCOUNTER 2023-11-03 11:48 | Outpatient (AMB) | payer OTHER, SELFPAY ==
--- NOTE | 2023-11-03 11:54 | A.OFFPC_ITS ---
Vital Signs 11/03/23 11:57 Height 4 ft 11 in Weight 124 lb BMI 25.0 BP 110/72 Blood Pressure Location Lt brachial Position Sitting Pulse 77 Pulse Source Pulse Oximeter Pulse Oximetry (%) 98 Oxygen Delivery Method Room Air Intake Visit Reasons: Pain management Intake Note: Patient here to address swelling of right elbow that has been present for about 1 month. Allergies oxycodone [From Percocet] Adverse Reaction (Verified 11/08/23 22:23) Nausea and Vomiting Medication List - Last Reconciled 11/08/23 by Kassy Anna MD cholecalciferol (vitamin D3) 25 mcg PO DAILY clonazepam 0.5 mg PO DAILY esomeprazole magnesium (Nexium) 40 mg PO DAILY fluoxetine 20 mg PO QAM ibuprofen 600 mg PO Q6-8H PRN sennosides (Natural Senna Laxative) 17.2 mg (2 x 8.6 mg) PO BEDTIME zolpidem 10 mg PO BEDTIME PRN Tobacco use date assessed: 03/25/23 Dental Screening Dental Screen Date: 03/25/23 HPI Pain management HPI Details 63-year-old lady here today complaining of persistent pain occasional swelling in elbow. Has tried taking ibuprofen, applied ice alternating with heat which has not afforded significant relief. Denies any history of trauma. [facility] Medical History Lateral epicondylitis of elbow Left wrist fracture Left calcaneal fracture Morales's esophagus determined by biopsy History of adenomatous polyp of colon Osteoporosis of lumbar spine History of bone density study Impaired fasting glucose Plantar fasciitis of right foot Trigger finger, left middle finger Left femoral shaft fracture Chronic insomnia Depression, major, recurrent, in partial remission Chronic GERD Surgical History H/O left wrist surgery History of surgery on lower extremity Hx of abdominoplasty Hx of colonoscopy History of esophagogastroduodenoscopy (EGD) Family History Brother Substance use disorder Daughter Mental health disorder Mother Alzheimer disease Social History Household Members: Family Housing: House Alcohol intake: current Alcohol intake frequency: a few times a week Alcohol type: beer Patient Tobacco Use Status: Former Tobacco user Years Smoked: 15 e-Cigarette/Vaping Use: Never Used service: No Current occupational status: employed 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 How often do you have a drink containing alcohol?: Never 3. How often do you have six or more drinks on one occasion?: Never Total Score: 0 Score Reviewed/Action Taken: No LEONARDO-7 AMB Questionnaire LEONARDO-7 Date LEONARDO - 7 assessed: 03/25/23 Source: Developed by Drs. Avila Cox, Carrol Miranda, Magdaleno Remy and colleagues, with an educational mindy from [employer]. Review of Systems Const All systems reviewed & are unremarkable except as noted in HPI and below Physical exam (Primary Care) Vital Signs: Last Vital Signs Pulse 77 11/03/23 11:57 BP 110/72 11/03/23 11:57 Pulse Ox 98 11/03/23 11:57 Oxygen Delivery Method Room Air 11/03/23 11:57 BMI result Body Mass Index 25.0 Tobacco/Smoking Status: Tobacco use Status Tobacco use date assessed 03/25/23 11/03/23 12:00 Patient Tobacco Use Status Former Tobacco user 11/03/23 12:00 e-Cigarette/Vaping Use Never Used 11/03/23 12:00 Thrive Assessment: Date of Thrive Assessment Date Thrive assessed 03/25/23 11/03/23 12:00 Const Other: Alert oriented x3, no acute distress noted Neck Other: Supple with no lymphadenopathy Resp Auscultation: clear to auscultation bilaterally Cardio Other: S1-S2 present regular rate and rhythm Extrem Other: Slight swelling and tenderness on palpation over lateral epicondyle area on right Full Range of motion of elbow joint Assessment and Plan Assessment & Plan (1) Lateral epicondylitis of elbow: Code(s): M77.10 - Lateral epicondylitis, unspecified elbow Qualifiers: Laterality: left Qualified Code(s): M77.12 - Lateral epicondylitis, left elbow Plan: No improvement with conservative measures, referred to orthopedics for further evaluation and manage Orders: Referrals Orthopedics Referral M77.10 - Lateral epicondylitis, unspecified elbow Coding Level of Care Code Est Pt Level 3 (37624) Diagnoses Lateral epicondylitis of left elbow M77.12 Laterality: left
[2023-11-03 11:57] VITALS: BP 110/72; PULSE 77; O2SAT 98; BMI 25.0
== END 2023-11-03 12:22 | disposition home or self-care (01) ==
PROVIDERS: PCP Internal Medicine; Visit Provider Internal Medicine
DX: M77.12 Lateral epicondylitis, left elbow (principal)
CPT/HCPCS: 99213

== ENCOUNTER 2023-11-05 10:21 | Outpatient (AMB) | payer OTHER, SELFPAY ==
--- NOTE | 2023-11-05 10:43 | A.OFFVIS_ITS ---
Intake Visit Reasons: OV - Left Calcaneal Fracture - DOI: 08/29/23 Intake Note: Cari is a 63 year old female who presents today for a follow up of her left foot, s/p Left Calcaneous Fx 08/29/23. At her last visit she was placed in a cast and instructed to be NWB. Allergies oxycodone [From Percocet] Adverse Reaction (Verified 11/05/23 10:44) Nausea and Vomiting HPI HPI OV - Left Calcaneal Fracture - DOI: 08/29/23: Details: Cari is a 63 year old female who presents today for a follow up of her left foot, s/p Left Calcaneous Fx 08/29/23. At her last visit she was placed in a cast and instructed to be NWB. She has been weight-bearing in a boot. She feels well. She has right elbow pain. [facility] Medical History (Updated 11/03/23 @ 12:15 by Kassy Anna MD) Lateral epicondylitis of elbow Left wrist fracture Left calcaneal fracture Morales's esophagus determined by biopsy History of adenomatous polyp of colon Osteoporosis of lumbar spine History of bone density study Impaired fasting glucose Plantar fasciitis of right foot Trigger finger, left middle finger Left femoral shaft fracture Chronic insomnia Depression, major, recurrent, in partial remission Chronic GERD Surgical History H/O left wrist surgery History of surgery on lower extremity Hx of abdominoplasty Hx of colonoscopy History of esophagogastroduodenoscopy (EGD) Family History Brother Substance use disorder Daughter Mental health disorder Mother Alzheimer disease Social History Household Members: Family Housing: House Alcohol intake: current Alcohol intake frequency: a few times a week Alcohol type: beer Patient Tobacco Use Status: Former Tobacco user Years Smoked: 15 e-Cigarette/Vaping Use: Never Used service: No Current occupational status: employed 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 Mild soft tissue swelling. No tenderness to palpation. Full range motion of the ankle. Pain with subtalar motion that is mild. Right elbow with full range of motion. Positive resisted dynamic extension test and tenderness to palpation lateral epicondyle. Office Procedures Joint Injection/Aspiration Joint Injection/Aspiration Details: Injected 1 mL of Decadron and 1 mL 1% lidocaine and 1 mL of 0.25% Marcaine. Site was prepped using aseptic technique. Patient tolerated the procedure well. Primary Site: right tennis elbow Approach Used: anterolateral Coding 16214 - Epicondyle Procedure code (CPT) selection complete Assessment & Plan Assessment & Plan (1) Lateral epicondylitis of elbow: Code(s): M77.10 - Lateral epicondylitis, unspecified elbow Category: Medical Plan: Injected her right lateral epicondyle. Reviewed therapeutic exercises and activity modification. Follow up as needed. (2) Left calcaneal fracture: Code(s): S92.002A - Unspecified fracture of left calcaneus, initial encounter for closed fracture Category: Medical Qualifiers: Encounter type: initial encounter Calcaneus location: body Fracture type: closed Fracture alignment: nondisplaced Qualified Code(s): S92.015A - Nondisplaced fracture of body of left calcaneus, initial encounter for closed fracture Plan: Doing well status post left calcaneus fracture. No surgical intervention warranted. Continue weight-bearing in boot and wean out of boot over the next 4 weeks. Coding Level of Care Code Est Pt Level 4 (61118) Diagnoses Lateral epicondylitis of elbow M77.10 Closed nondisplaced fracture of body of left calcaneus, initial encounter S92.015A Encounter type: initial encounter Calcaneus location: body Fracture type: closed Fracture alignment: nondisplaced CPT Codes Coding - Joint 2: 00081 - Epicondyle ([id number])
== END 2023-11-05 13:49 | disposition home or self-care (01) ==
PROVIDERS: PCP Internal Medicine; Visit Provider Orthopaedic Surgery
DX: M77.11 Lateral epicondylitis, right elbow (principal); S92.015A Nondisplaced fracture of body of left calcaneus, initial encounter for closed fracture
CPT/HCPCS: 20550; 99214

== ENCOUNTER → 2023-11-05 10:21 | Outpatient (BNVA) | payer OTHER, SELFPAY | PROVIDERS: PCP Internal Medicine; Visit Provider Orthopaedic Surgery | DX: S92.015A Nondisplaced fracture of body of left calcaneus, initial encounter for closed fracture (principal); X58.XXXA Exposure to other specified factors, initial encounter; Y93.9 Activity, unspecified; Y92.9 Unspecified place or not applicable; Y99.9 Unspecified external cause status; M77.11 Lateral epicondylitis, right elbow | CPT/HCPCS: 20550; 99212; J0665; J1100 ==

== ENCOUNTER 2023-12-14 13:17 | Outpatient (AMB) | payer OTHER, SELFPAY ==
[2023-12-14 13:36] VITALS: BP 100/70; PULSE 78; O2SAT 96; BMI 25.6
--- NOTE | 2023-12-14 13:36 | MHC.PC.OV ---
Vital Signs 12/14/23 13:36 Height 4 ft 11 in Weight 127 lb BMI 25.6 BP 100/70 Blood Pressure Location Lt brachial Position Sitting Pulse 78 Pulse Source Pulse Oximeter Pulse Oximetry (%) 96 Oxygen Delivery Method Room Air Intake Visit Reasons: Dizziness and nauseas Intake Note: Pt is here today c/o vertigo and nausea x1mo. Allergies oxycodone [From Percocet] Adverse Reaction (Verified 12/14/23 13:41) Nausea and Vomiting Medication List - Last Reconciled 12/14/23 by Kassy Anna MD cholecalciferol (vitamin D3) 25 mcg PO DAILY clonazepam 0.5 mg PO DAILY esomeprazole magnesium (Nexium) 40 mg PO DAILY fluoxetine 20 mg PO QAM ibuprofen 600 mg PO Q6-8H PRN pen needle, diabetic (Comfort EZ Pen [place]) As directed sennosides (Natural Senna Laxative) 17.2 mg (2 x 8.6 mg) PO BEDTIME teriparatide (Forteo) 20 mcg (0.08 mL) subcut DAILY zolpidem 10 mg PO BEDTIME PRN Tobacco use date assessed: 12/14/23 Dental Screening Dental Screen Date: 12/14/23 Did you have a dental visit in the last 12 months?: Yes Did you have a dental problem in the last 6 months where you did not have access to dental care?: No Was dental information given to patient?: Patient has dentist HPI Dizziness and nauseas HPI Details 63 year old lady with past medical history of osteoporosis of lumbar spine , major depression currently on fluoxetine , and has chronic insomnia, taking zolpidem, followed by Dr. Susana Ho , has chronic GERD and Morales's esophagus and on omeprazole followed at [facility], here today complaining of intermittent episodes of dizziness and nausea for the present now for the last month. [facility] Medical History (Updated 12/14/23 @ 13:50 by Kassy Anna MD) Benign positional vertigo Lateral epicondylitis of elbow Left wrist fracture Left calcaneal fracture Morales's esophagus determined by biopsy History of adenomatous polyp of colon Osteoporosis of lumbar spine History of bone density study Impaired fasting glucose Plantar fasciitis of right foot Trigger finger, left middle finger Left femoral shaft fracture Chronic insomnia Depression, major, recurrent, in partial remission Chronic GERD Surgical History H/O left wrist surgery History of surgery on lower extremity Hx of abdominoplasty Hx of colonoscopy History of esophagogastroduodenoscopy (EGD) Family History Brother Substance use disorder Daughter Mental health disorder Mother Alzheimer disease Social History Household Members: Family Housing: House Alcohol intake: current Alcohol intake frequency: a few times a week Alcohol type: beer Patient Tobacco Use Status: Former Tobacco user Years Smoked: 15 e-Cigarette/Vaping Use: Never Used service: No Current occupational status: employed 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 Avila Cox, Carrol Miranda, Magdaleno Remy and colleagues, with an educational mindy from [employer]. Review of Systems Const Reports no additional complaints Eyes Reports no additional complaints and Denies change in vision ENT Reports no additional complaints, Reports Normal hearing present, Denies tinnitus and Denies sinus pressure Card Denies chest pain, Denies rapid heart rate, Denies irregular heart rhythm and Denies dyspnea Resp Denies cough and Denies dyspnea GI Reports no additional complaints Musc Reports no additional complaints Neuro Reports Normal hearing present Endo Reports no additional complaints Андрей/Lymph Reports no additional complaints Aller/Immun Reports no additional complaints Physical exam (Primary Care) Vital Signs: Last Vital Signs Pulse 78 12/14/23 13:36 BP 100/70 12/14/23 13:36 Pulse Ox 96 12/14/23 13:36 Oxygen Delivery Method Room Air 12/14/23 13:36 BMI result Body Mass Index 25.6 Tobacco/Smoking Status: Tobacco use Status Tobacco use date assessed 12/14/23 12/14/23 13:38 Patient Tobacco Use Status Former Tobacco user 12/14/23 13:38 e-Cigarette/Vaping Use Never Used 12/14/23 13:38 Thrive Assessment: Date of Thrive Assessment Date Thrive assessed 03/25/23 12/14/23 13:38 Const Other: Alert oriented x3, no acute distress noted Orientation/consciousness: patient oriented x3 [facility] Head: Yes normocephalic and Yes atraumatic Ears: external ears normal, TM's normal bilaterally and EAC's normal General nose exam: Normal external nose present Face and sinus: Yes face symmetric and No sinus tenderness Mouth: Normal oral and palatal mucosa present, oropharynx normal and moist mucous membranes Eyes General: appearance normal, both eyes and all related structures Neck Other: Supple with no lymphadenopathy Resp Auscultation: clear to auscultation bilaterally Cardio Other: S1-S2 present regular rate and rhythm GI Palpation (GI): Soft to palpation, nontender, no guarding and no masses Auscultation: normal bowel sounds Neuro General: patient oriented x3, gait normal, tone normal, moves all extremities, no focal motor deficits and CN's II-XI intact bilaterally Cranial nerves: Yes Normal hearing present Gait exam (Neuro): Normal gait present Extrem General: Yes full ROM, Yes no joint enlargement, Yes no clubbing, cyanosis or edema and Yes normal gait Coding Level of Care Code Est Pt Level 3 (09711) Diagnoses Benign positional vertigo H81.10 Assessment & Plan Assessment & Plan (1) Benign positional vertigo: Code(s): H81.10 - Benign paroxysmal vertigo, unspecified ear Category: Medical Plan: Review of latest labs 08/13/2023 showed no evidence of anemia, thyroid levels are within normal limits electrolytes normal, fasting glucose slightly elevated at 103 mg/dL. Patient complains of intermittent dizziness usually with sudden changes in position. Likely benign position vertigo, referred to vestibular rehab therapy for further evaluation and management . Small prescription for meclizine 12.5 mg per tablet given to the patient, to take 1 tablet no more than twice a day as needed for intermittent episodes of dizziness and lightheadedness. Orders: Orders PT Evaluation and Treatment 12/14/23 H81.10 - Benign paroxysmal vertigo, unspecified ear Medications: New meclizine 12.5 mg PO BID PRN 30 tabs 0RF dizziness
== END 2023-12-14 14:11 | disposition home or self-care (01) ==
PROVIDERS: PCP Internal Medicine; Visit Provider Internal Medicine
DX: H81.10 Benign paroxysmal vertigo, unspecified ear (principal)

== ENCOUNTER → 2023-12-14 13:17 | Outpatient (BNVA) | payer OTHER, SELFPAY | PROVIDERS: PCP Internal Medicine; Visit Provider Internal Medicine | DX: H81.10 Benign paroxysmal vertigo, unspecified ear (principal) | CPT/HCPCS: 99212 ==

== ENCOUNTER 2024-01-20 08:33 | Outpatient (AMB) | payer OTHER, SELFPAY ==
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
[2024-01-20 08:51] VITALS: BP 126/76; PULSE 70; BMI 25.6
== END 2024-01-20 09:10 | disposition home or self-care (01) ==
PROVIDERS: PCP Internal Medicine; Visit Provider Internal Medicine Endocrinology, Diabetes & Metabolism
DX: M81.0 Age-related osteoporosis without current pathological fracture (principal)
CPT/HCPCS: 99213

== ENCOUNTER → 2024-01-20 08:33 | Outpatient (BNVA) | payer OTHER, SELFPAY | PROVIDERS: PCP Internal Medicine; Visit Provider Internal Medicine Endocrinology, Diabetes & Metabolism | DX: M81.0 Age-related osteoporosis without current pathological fracture (principal) | CPT/HCPCS: 99212 ==

== ENCOUNTER → 2024-02-03 10:30 | Outpatient (BNV) | payer OTHER, SELFPAY | PROVIDERS: PCP Internal Medicine; Visit Provider Internal Medicine | DX: Z12.31 Encounter for screening mammogram for malignant neoplasm of breast (principal) | CPT/HCPCS: 77063; 77067 ==

== ENCOUNTER 2024-02-03 10:32 | Outpatient (REF) | payer OTHER, SELFPAY | END 2024-02-03 10:33 | disposition home or self-care (01) | LOC: HO.MAMMO 10:32 | PROVIDERS: PCP Internal Medicine; Visit Provider Internal Medicine | DX: Z12.31 Encounter for screening mammogram for malignant neoplasm of breast (principal) | CPT/HCPCS: 77063; 77067 ==

== ENCOUNTER 2024-02-04 13:42 | Outpatient (AMB) | payer OTHER, SELFPAY ==
[2024-02-04 13:45] VITALS: BMI 25.4
--- NOTE | 2024-02-04 13:45 | MHC.OFFVIS ---
Vital Signs 02/04/24 13:45 Height 4 ft 11 in Weight 126 lb BMI 25.4 Intake Visit Reasons: Inj-right elbow injection-last injection 11/05/23 Intake Note: Cari is a 63 year old right hand dominant female who presents today for a follow up of her right lateral epicondylitis. Last injection administered on 11/05/23. Patient reports that the last injection was not helpful at all. Her right elbow continues to be painful and limits her daily activities. Left Calcaneous Fx 08/29/23 Allergies oxycodone [From Percocet] Adverse Reaction (Verified 01/20/24 08:51) Nausea and Vomiting HPI HPI Inj-right elbow injection-last injection 11/05/23: Details: Cari is a 63 year old right hand dominant female who presents today for a follow up of her right lateral epicondylitis. Last injection administered on 11/05/23. Patient reports that the last injection was not helpful at all. Her right elbow continues to be painful and limits her daily activities. [facility] Medical History Benign positional vertigo Lateral epicondylitis of elbow Left wrist fracture Left calcaneal fracture Morales's esophagus determined by biopsy History of adenomatous polyp of colon Osteoporosis of lumbar spine History of bone density study Impaired fasting glucose Plantar fasciitis of right foot Trigger finger, left middle finger Left femoral shaft fracture Chronic insomnia Depression, major, recurrent, in partial remission Chronic GERD Surgical History H/O left wrist surgery History of surgery on lower extremity Hx of abdominoplasty Hx of colonoscopy History of esophagogastroduodenoscopy (EGD) Family History Brother Substance use disorder Daughter Mental health disorder Mother Alzheimer disease Social History Household Members: Family Housing: House Alcohol intake: current Alcohol intake frequency: a few times a week Alcohol type: beer Patient Tobacco Use Status: Former Tobacco user Years Smoked: 15 e-Cigarette/Vaping Use: Never Used service: No Current occupational status: employed 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 Pain with resisted wrist flexion Office Procedures Joint Inj/Aspir; Non-Pain Clin Joint Injection/Drain Details: Injected 1 mL of Decadron and 1 mL 1% lidocaine and 1 mL of 0.25% Marcaine. Site was prepped using aseptic technique. Patient tolerated the procedure well. Approach Used: anterolateral Elbows, Wrist, Hands, Elbow Injection Medium joint : Right Elbow Coding Procedure code (CPT) selection complete Assessment & Plan Assessment & Plan (1) Lateral epicondylitis of elbow: Code(s): M77.10 - Lateral epicondylitis, unspecified elbow Category: Medical Qualifiers: Laterality: left Qualified Code(s): M77.12 - Lateral epicondylitis, left elbow Plan: Injected right lateral epicondyle. Has a counterforce brace. Informed her of the activities which she may want to avoid. She is not interested in PT at this time. Follow up in 3 months if pain persists. Coding Level of Care Code Est Pt Level 3 (63027) Diagnoses Lateral epicondylitis of left elbow M77.12 Laterality: left CPT Codes Elbows, Wrist, Hands, - Elbow Injection Medium joint : Right Elbow ([id number])
== END 2024-02-04 15:53 | disposition home or self-care (01) ==
PROVIDERS: PCP Internal Medicine; Visit Provider Orthopaedic Surgery
DX: M77.12 Lateral epicondylitis, left elbow (principal)
CPT/HCPCS: 20550; 99213

== ENCOUNTER → 2024-02-04 13:42 | Outpatient (BNVA) | payer OTHER, SELFPAY | PROVIDERS: PCP Internal Medicine; Visit Provider Orthopaedic Surgery | DX: M77.12 Lateral epicondylitis, left elbow (principal) | CPT/HCPCS: 20550; 99212; J0665; J1100; J2003 ==

== ENCOUNTER → 2024-03-22 08:55 | Outpatient (BNVA) | payer OTHER, SELFPAY | PROVIDERS: PCP Internal Medicine; Visit Provider Obstetrics & Gynecology | DX: Z01.419 Encounter for gynecological examination (general) (routine) without abnormal findings (principal) | CPT/HCPCS: 99396; 99459 ==

== ENCOUNTER 2024-03-30 12:47 | Outpatient (AMB) | payer OTHER, SELFPAY ==
--- NOTE | 2024-03-30 12:49 | A.OFFVIS_ITS ---
Vital Signs 03/30/24 12:50 Height 4 ft 11 in Weight 126 lb 1.671 oz BMI 25.5 BP 113/64 Blood Pressure Location Lt brachial Position Sitting Pulse 71 Intake Visit Reasons: FUV, worsening GERD, N+V Intake Note: Patient in office today in follow up of GERD, nausea and vomiting. CC: Patient c/o abdominal pain for the last 2 weeks, GERD, nausea, and vomiting. She states that she feels that after eating the food states sitting there . Opthalmic Tech Required: No Accompanied by: Self / Same As Patient Allergies oxycodone [From Percocet] Adverse Reaction (Verified 03/30/24 12:54) Nausea and Vomiting HPI HPI FUV, worsening GERD, N+V: Details: LAST VISIT Chronic GERD Postprandial abdominal bloating Constipation Screen for colon cancer Plan Continue current treatment with Nexium. Discussed with patient avoiding dietary triggers like as hiking. Patient will be sent for upper endoscopy to rule out gastritis, duodenitis, esophagitis, gastric or peptic ulcers, H pylori, Morales's. Patient can continue taking senna daily. Instructed to increase fluid intake and activity to promote better bowel motility. Patient also encouraged to follow FODMAP diet. List of food recommended as well as list of food to avoid given to patient. Postprandial abdominal bloating most likely related to the food that she is eating. Patient also encouraged to eat smaller meals and more often. What to expect before during and after the procedure discussed with patient. Clear liquid diet and good bowel prep stressed. I will see patient after the procedure, sooner on as needed basis. Patient is agreeable to this plan and verbalizes understanding of instructions. She was given the opportunity to ask questions and all questions answered. ? Thank you for allowing me to participate in her care Medications New polyethylene glycol 3350 (Miralax) As directed by gastroenterology department at [facility] 238 grams PO ONCE 238 grams 0RF Z12.11 bisacodyl (Dulcolax (bisacodyl)) take 4 tabs at noon the day before your colonoscopy 20 mg (4 x 5 mg) PO ONCE 1 day 4 tabs 0RF Z12.11 Refilled sennosides (Natural Senna Laxative) 17.2 mg (2 x 8.6 mg) PO BEDTIME 180 tabs 3RF constipation K59.00 esomeprazole magnesium (Nexium) 40 mg PO DAILY 90 caps 5RF K21.9 UPPER ENDOSCOPY AND COLONOSCOPY Findings: Larynx:normal Esophagus: GE junction at 33 cm, diaphragm hiatus at 33 cm, possible short segment Barretts, bx taken to r/o also bx taken from distal esophagus Stomach: Mild erythema, Biopsies were obtained. Grade 2 flap valve on retroflexed examination of the cardia. Duodenum: Normal bulb and descending duodenum, Intervention: Biopsies as noted above, COLONOSCOPY Instrument: Olympus variable stiffness pediatric scope 190L Colonoscopy Monitoring: Vital signs and clinical assessment, continuous EKG monitoring, Pulse oximetry, Carbon Dioxide monitoring and blood pressure monitoring were done throughout the procedure. Colon withdrawal time was 12 minutes. Procedure: The patient was placed in the left lateral decubitis position and pre-procedure medications were administered. After a digital rectal examination of the ano-rectum, the video colonoscope was inserted into the rectum and advanced through the colon to the cecum/TI. The colonoscope was slowly withdrawn in a retrograde panoramic fashion and the colon mucosa was carefully examined including a retroflexed view of the rectum. Findings and interventions are described below. Procedure Difficulty:moderate Findings: Terminal Ileum-normal Cecum: x 3 sessile polyps 5-8 mm raised w/ eleview injection and then removed with cold snare Ascending Colon: x 2 sessile polyps 7-9 mm removed with cold forceps Transverse Colon -normal Descending Colon:normal Sigmoid Colon: moderate diverticulosis Rectum: Retroflexion with small internal hemorrhoids, grade I Anorectum - normal Colon preparation: [place] Bowel Preparation Scale Right colon; 2 Transverse colon: 2 Left colon; 2 (0 = Unprepared colon segment with mucosa not seen due to solid stool that cannot be cleared. 1 = Portion of mucosa of the colon segment seen, but other areas of the colon segment not well seen due to staining, residual stool and/or opaque liquid. 2 = Minor amount of residual staining, small fragments of stool and/or opaque liquid, but mucosa of colon segment seen well. 3 = Entire mucosa of colon segment seen well with no residual staining, small fragments of stool or opaque liquid) Impression and Post Procedure Diagnosis: Endoscopy Findings: mild gastritis r/o barretts Colonoscopy Findings: diverticulosis colon polyps internal hemorrhoids Plan: Await Pathology results Repeat Colonoscopy in 3 years due to polyps or earlier if clinically indicated High fiber diet leaflet avoid straining at stool, epsom salts and sitz bath, anusol supps or cream Reflux precautions PATHOLOGY: Diagnosis A. Cecum, polypectomies (3): - Tubular adenomata (2); negative for high-grade dysplasia or carcinoma. - Colonic mucosa with mild surface hyperplastic changes. B. Colon, ascending polypectomies (2): Colonic mucosa with prominent lymphoid aggregate and mild surface hyperplastic changes. C. Stomach, biopsy: Antral-type and oxyntic mucosa with mild chronic inactive inflammation and intestinal metaplasia in the antrum; negative for dysplasia; no Helicobacter organisms seen. D. GE junction, biopsy: - Morales esophagus with background moderate chronic inactive inflammation. - No dysplasia seen. - Active esophagitis (maximum eosinophil count 1 per high powered field). E. Esophagus, distal, biopsy: Squamous epithelium within normal limits; no inflammation seen TODAY'S VISIT: Patient is here today for follow-up and to discuss upper endoscopy and colonoscopy results. Patient denies any ill effects from the prep, anesthesia or procedure itself. Patient reports that she has been having epigastric pain occasionally and feeling very bloated specially in the afternoon. This has been going on in the past couple weeks. Patient is taking Nexium and her symptoms of acid reflux are suppressed for the most part. She reports that she is moving her bowels well without any issues. Patient reports occasional nausea. States that after she eats specially dinner she feels like the food is sitting in her stomach feeling very bloated. Patient denies dyspepsia, dysphagia or odynophagia. Denies melena, hematochezia. Tubular adenoma found without high- grade dysplasia or carcinoma, esophagitis seen at the GE junction as well as Barretts esophagus. Moderate Diverticulosis seen in sigmoid colon. [facility] Medical History (Updated 04/03/24 @ 15:31 by Brea Wyatt, [facility]-) Tubular adenoma of colon Diverticulosis Benign positional vertigo Lateral epicondylitis of elbow Left wrist fracture Left calcaneal fracture Morales's esophagus determined by biopsy History of adenomatous polyp of colon Osteoporosis of lumbar spine History of bone density study Impaired fasting glucose Plantar fasciitis of right foot Trigger finger, left middle finger Left femoral shaft fracture Chronic insomnia Depression, major, recurrent, in partial remission Chronic GERD Surgical History H/O left wrist surgery History of surgery on lower extremity Hx of abdominoplasty Hx of colonoscopy History of esophagogastroduodenoscopy (EGD) Family History Brother Substance use disorder Daughter Mental health disorder Mother Alzheimer disease Social History Household Members: Family Housing: House Alcohol intake: current Alcohol intake frequency: a few times a week Alcohol type: beer Patient Tobacco Use Status: Former Tobacco user Years Smoked: 15 e-Cigarette/Vaping Use: Never Used service: No Current occupational status: employed 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, 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 Sexual orientation: Straight/Heterosexual Gender identity: Female Cognitive needs: No Hearing needs: No Vision needs: Yes Review of Systems Const Denies weight gain and Denies weight loss Card Reports no additional complaints Resp Reports no additional complaints GI Denies abdominal pain, Denies belching, Denies melena, Reports bloating, Denies change in bowel habits, Denies excessive flatus, Denies dyspepsia, Reports heartburn (Occasional), Denies diarrhea, Denies loose stools, Denies nausea and Denies vomiting Reports no additional complaints Musc Reports no additional complaints Neuro Reports no additional complaints Psych Reports no additional complaints Endo Reports no additional complaints Physical Exam Vital Signs: Last Vital Signs Pulse 71 03/30/24 12:50 BP 113/64 03/30/24 12:50 BMI result Body Mass Index 25.5 Const General: healthy appearing, no acute distress and well developed Nutritional Appearance: well nourished Orientation/consciousness: patient oriented x3 Resp Effort & Inspection: normal respiratory effort, able to speak in complete sentences, no tracheal deviation and symmetric chest movement Auscultation: clear to auscultation bilaterally Cardio Rate: regular rate GI Inspection: Yes normal to inspection and No distended Palpation (GI): Soft to palpation, not firm, nontender and No hepatosplenomegaly present Auscultation: normal bowel sounds General: Yes no CVA tenderness Back/Spine/Pelvis Back: no CVA tenderness Skin General skin exam: elasticity normal, turgor normal and dry skin Neuro General: patient oriented x3 Psych Appearance: grossly normal Mental Status: mental status grossly normal Assessment & Plan Assessment & Plan (1) Chronic GERD: Code(s): K21.9 - Gastro-esophageal reflux disease without esophagitis Category: Medical (2) Diverticulosis: Code(s): K57.90 - Diverticulosis of intestine, part unspecified, without perforation or abscess without bleeding Category: Medical (3) Tubular adenoma of colon: Code(s): D12.6 - Benign neoplasm of colon, unspecified Category: Medical (4) Postprandial abdominal bloating: Code(s): R14.0 - Abdominal distension (gaseous) (5) Constipation: Code(s): K59.00 - Constipation, unspecified Qualifiers: Constipation type: slow transit constipation Qualified Code(s): K59.01 - Slow transit constipation Plan Patient will continue taking Nexium. Avoid dietary triggers and late night snacking. Occasional epigastric pain postprandially. Patient will be sent for lab work. Will check lipase to rule out chronic pancreatitis. Will check vitamin-D, B12, folate and thyroid study. Patient will eat smaller meals and more often. She will increase fluid intake and activity to promote better bowel motility. Colonoscopy in 3 months, we will repeat endoscopy at the same time to check for Barretts at the GE junction. Patient will follow-up in 3 months, sooner on as needed basis. She is agreeable to this plan and verbalizes understanding of instructions. She was given the opportunity to ask questions and all questions answered Thank you for allowing me to participate in her care Orders: Orders Vitamin B12 and Folate 03/31/24 R19.7 - Diarrhea, unspecified Vitamin D 25-OH (D2 and D3) 03/31/24 E55.9 - Vitamin D deficiency, unspecified TSH reflex Free T4 03/31/24 K59.00 - Constipation, unspecified Lipase 03/31/24 R10.9 - Unspecified abdominal pain Coding Level of Care Code Est Pt Level 3 (30569) Diagnoses Chronic GERD K21.9 Diverticulosis K57.90 Tubular adenoma of colon D12.6 Postprandial abdominal bloating R14.0 Slow transit constipation K59.01 Constipation type: slow transit constipation Time Spent (min) 30 Comment 20 minutes spent with patient and additional 10 minutes spent reviewing her records
[2024-03-30 12:50] VITALS: BP 113/64; PULSE 71; BMI 25.5
--- OUTSIDE RECORDS SUMMARY | 2024-03-30 14:08 | XMS_ITS | Clinical Summary ---
Author Organization [facility] Address [address] [facility] [address] [place] [address] Care Team Providers Care Box Shook Patcher Name Role Phone Unavailable Primary Care Provider Unavailabl e Allergies No known active allergies Medications alendronate (Fosamax) 70 MG tablet PLEASE SEE ATTACHED FOR DETAILED DIRECTIONS 4 Active clonazePAM (KlonoPIN) 0.5 MG tablet 5 Active esomeprazole (NexIUM) [address] capsule Take 1 capsule by mouth Once per day. 4 Active FLUoxetine (PROzac) 20 MG capsule 5 Active ibuprofen 600 MG tablet take 1 tablet by mouth every 6 to 8 hours as needed for pain 4 Active BD Pen Needle Stephanie 2nd Gen 32G X 4 MM misc DIRECTED INJECT ONCE A DAY 4 Active ketorolac (Acular) 0.5 % ophthalmic solution PLEASE SEE ATTACHED FOR DETAILED DIRECTIONS 4 Active meclizine (Antivert) 12.5 MG tablet TAKE 1 TABLET BY MOUTH TWICE A DAY NEEDED FOR DIZZINESS 4 Active nabumetone (Relafen) 500 MG tablet Take 1 tablet by mouth if needed in the morning and at bedtime for pain. 4 Active oxyCODONE-aceta minophen (Percocet) 5-325 MG tablet Take 1 tablet by mouth every 6 (six) hours if needed for pain. 4 Active Senna-Time 8.6 MG tablet TAKE 2 TABLETS BY MOUTH AT BEDTIME FOR CONSTIPATION 4 Active zolpidem (Ambien) 10 MG tablet Take 10 mg by mouth at bedtime. 4 Active Forteo injection 4 Active Active Problems No known active problems Encounters Date Type Department Care Team Description 03/04/2024 8:00 AM EST Office Visit [facility] ADULT [facility] [address] [place] [address] Janeen Mejia from Last 3 Months Social History Tobacco Use Types Packs/Day Years Used Date Smoking Tobacco: Never Smokeless Tobacco: Never Tobacco Cessation:Counseling Given: Not Answered Alcohol Use Standard Drinks/Week Comments Defer 0 (1 standard drink = 0.6 oz pur e alcohol) Comments Unknown Sex and Gender Information Value Date Recorded Sex Assigned at Female 02/29/2024 8:54 AM EST Legal Sex Female 11:16 AM EDT Gender Identity Female 02/29/2024 8:54 AM EST Sexual Orientation Straight 02/29/2024 8: 54 AM EST Last Filed Vital Signs Vital Sign Reading Time Taken Comments Blood Pressure 126/78 03/04/2024 8:10 AM EST Pulse - - Temperature - - Respiratory Rate - - Oxygen Saturation - - Inhaled Oxygen Concentration - - Weight - - Height - - Body Mass Index - - Plan of Treatment Upcoming Encounters Date Type Department Care Team (Late st Contact Info) Description 09/02/2024 8:00 AM EDT Office Visit [facility] AD[facility] [address] [place] [address] Janeen Mejia Health Maintenance Due Date Last Done Comments CT Colonography 1961 Colonoscopy 1961 Colorectal Cancer Screening 1961 Depression Screening 1961 FIT DNA/Cologuard 1961 FIT 1961 FOBT 1961 HIV Screening 1961 SDOH Screening 1961 Sigmoidoscopy 1961 Alcohol/Substance Use Screening 1973 Hepatitis C Screening 1979 Pap Smear 1982 Cervical Cancer Screening 1991 HPV/Cotest 1991 Mammogram 2001 Dental Oral Exam 09/02/2024 03/04/2024 Dental Prophylaxis 09/02/2024 03/04/2024 Tobacco Screening 03/04/2025 03/04/2024 Dental X-Ray: Bitewings 03/05/2025 03/04/2024 DTaP/Tdap/Td Vaccines (4 - Td or Tdap) 11/26/2026 11/26/2016, 11/17/2014, 06/24/2012 Dental X-Ray: Full Mouth 03/05/2027 03/04/2024 RSV Patients and Patients Aged 60 years or older (1 - 1-dose 75+ series) 02/15/2036 Zoster Vaccines Completed 04/10/2021, 12/07/2020 Pneumococcal Vaccine: 50+ Years Completed 01/03/2022 Pneumococcal Vaccine: Pediatrics (0 to 5 Years) and At-Risk Patients (6 to 49) Years) Aged Out 01/03/2022 No longer eligible based on patient's age to complete this topic COVID-19 Vaccine Completed 12/04/2023, 03/2022, 01/03/2022, Additional history exists Influenza Vaccine Completed 12/04/2023, , 11/27/2015, Additional history exists HIB Vaccines Aged Out No longer eligi ble based on patient's age to complete this topic HPV Vaccines Aged Out No longer eligi ble based on patient's age to complete this topic Hepatitis A Vaccines Aged Out No long er eligible based on patient's age to complete this topic Hepatitis B Vaccines Aged Out No long er eligible based on patient's age to complete this topic IPV Vaccines Aged Out No longer eligi ble based on patient's age to complete this topic Meningococcal Vaccine Aged Out No katarzyna alfredo eligible based on patient's age to complete this topic RSV under 20 months Aged Out No longe r eligible based on patient's age to complete this topic Rotavirus Vaccines Aged Out No longer eligible based on patient's age to complete this topic Procedures Procedure Name Priority Date/Time Associated Diagnosis Comments COMPREHENSIVE ORAL EVALUATION - NEW OR ESTABLISHED PATIENT Routine 03/04/2024 8:00 AM EST DIAGNOSTIC - DIAGNOSTIC IMAGING - INTRAORAL - COMPREHENSIVE SERIES OF RADIOGRAPHIC IMAGES Routine 03/04/2024 8:00 AM EST ORAL HYGIENE INSTRUCTIONS Routine 2024 8:00 AM EST PROPHYLAXIS - ADULT Routine 03/04/2024 8 :00 AM EST 20 B COMPOSITE FILLING Routine 12:00 AM EST 18 O AMALGAM FILLING Routine 03/04/2024 12:00 AM EST 19 O AMALGAM FILLING Routine 03/04/2024 12:00 AM EST 15 O AMALGAM FILLING Routine 03/04/2024 12:00 AM EST 14 O AMALGAM FILLING Routine 03/04/2024 12:00 AM EST 3 O AMALGAM FILLING Routine 03/04/2024 1 2:00 AM EST 2 O AMALGAM FILLING Routine 03/04/2024 1 2:00 AM EST 30 O AMALGAM FILLING Routine 03/04/2024 12:00 AM EST 31 EXTRACTION Routine 03/04/2024 12:00 AM EST from Last 3 Months Insurance [facility]
--- OUTSIDE RECORDS SUMMARY | 2024-03-30 14:08 | XMS_ITS | Encounter Summary ---
Author Organization [employer] Address [address] [facility] [address] [place] [address] Care Team Providers Care Hospital Receptionist Name Role Phone Unavailable Primary Care Provider Unavailabl e Reason for Visit * Reason Comments Routine Cleaning Dental Exam Encounter Details Date Type Department Care Team (Late st Contact Info) Description 03/04/2024 8:00 AM EST Office Visit [facility] AD[facility] [address] [place] [address] Janeen Mejia Social History Tobacco Use Types Packs/Day Years [...] Orientation Straight 02/29/2024 8: 54 AM EST documented as of this encounter Last Filed Vital Signs Vital Sign Reading Time Taken Comments Blood Pressure 126/78 03/04/2024 8:10 AM EST Pulse - - Temperature - - Respiratory Rate - - Oxygen Saturation - - Inhaled Oxygen Concentration - - Weight - - Height - - Body Mass Index - - documented in this encounter Progress Notes * Janeen Mejia - 03/04/2024 8:00 AM EST Patient ID: Cari Yap is a 64 y.o. female. Time Out: Timeout Date: 03/04/24, Timeout Time: 0812 Location: [facility] Tooth: Maxilla and Mandible Procedure: Exam, X-rays, and Prophylaxis Verified the above with patient, senior it assistant, and provider. Confirmed via patient's chart, intraorally and by radiographs. Manager Biologics: not applicable Medical Hx: Vitals: Blood pressure 126/78. Medications, Med Hx reviewed with patient and updated in chart. Treatment Provided Dental procedures in this visit D1110 - PROPHYLAXIS - ADULT (Completed) Service provider: Janeen Mejia Billbaldomero provider: Norman Lundy D1330 - ORAL HYGIENE INSTRUCTIONS (Completed) Service provider: Janeen Mejia Billing provider: Norman Lundy D0210 - INTRAORAL - COMPLETE SERIES OF RADIOGRAPHIC IMAGES (Completed) Service provider: Janeen Mejia Billing provider: Norman Lundy D0150 - COMPREHENSIVE ORAL EVALUATION - NEW OR ESTABLISHED PATIENT (Completed) Service provider: Norman Lundy Billing provider: Norman Lundy Instruments Used: Ultrasonic Scalers and Prophy angle Fluoride: N/A Oral Cancer Screening: No lesions Head/Neck Exam: No Lesions Calculus: Light and Generalized Plaque: Light and Generalized Stain: Light and Localized Bleeding: None Gingiva: Healthy, Perio Charting Completed, and Recession- generalized OH: Good Perio Chart: Completed Dental exam done by Dr. Lundy. Oral hygiene instructions provided to patient including brushing technique and flossing. Recommendations: Mcloud two times daily, modified velasco technique, Floss daily, Electric toothbrush, Soft bristle toothbrush, Mcloud Tongue, Anti-sensitivity toothpaste Recall Frequency: 6 mo NV: Nightguard Impression Hygienist: Janeen Mejia RDH * Norman Lundy - 03/04/2024 8:00 AM EST Images from the original note were not included. Dental procedures in this visit D1110 - PROPHYLAXIS - ADULT (Completed) Service provider: Norman Lundy Billing provider: Norman Lundy D1330 - ORAL HYGIENE INSTRUCTIONS (Completed) Service provider: Norman Lundy Billbaldomero provider: Norman Lundy D0210 - INTRAORAL - COMPLETE SERIES OF RADIOGRAPHIC IMAGES (Completed) Service provider: Norman Lundy Billing provider: Norman Lundy D0150 - COMPREHENSIVE ORAL EVALUATION - NEW OR ESTABLISHED PATIENT (Completed) Service provider: Norman Lundy Billbaldomero provider: Norman Lundy Patient ID: Cari Yap is a 64 y.o. female. Time Out: Timeout Date: 03/04/24, Timeout Time: 811 Location: [facility] Tooth: Maxilla and Mandible Procedure: Exam Verified the above with patient, senior it assistant, and provider. Confirmed via patient's chart, intraorally and by radiographs. Manager Biologics: not applicable Chief Complaint Patient presents with Routine Cleaning Dental Exam Medical Hx: Vitals: Blood pressure 126/78. Past Medical History: Diagnosis Date Osteoporosis Medications: Outpatient Encounter Medications as of 03/04/2024 Medication Sig Dispense Refill alendronate (Fosamax) 70 MG tablet PLEASE SEE ATTACHED FOR DETAILED DIRECTIONS BD Pen Needle Stephanie 2nd Gen 32G X 4 MM misc DIRECTED INJECT ONCE A DAY clonazePAM (KlonoPIN) 0.5 MG tablet esomeprazole (NexIUM) [address] capsule Take 1 capsule by mouth Once per day. FLUoxetine (PROzac) 20 MG capsule Forteo injection ibuprofen 600 MG tablet take 1 tablet by mouth every 6 to 8 hours as needed for pain ketorolac (Acular) 0.5 % ophthalmic solution PLEASE SEE ATTACHED FOR DETAILED DIRECTIONS meclizine (Antivert) 12.5 MG tablet TAKE 1 TABLET BY MOUTH TWICE A DAY NEEDED FOR DIZZINESS nabumetone (Relafen) 500 MG tablet Take 1 tablet by mouth if needed in the morning and at bedtime for pain. oxyCODONE-acetaminophen (Percocet) 5-325 MG tablet Take 1 tablet by mouth every 6 (six) hours if needed for pain. Senna-Time 8.6 MG tablet TAKE 2 TABLETS BY MOUTH AT BEDTIME FOR CONSTIPATION zolpidem (Ambien) 10 MG tablet Take 10 mg by mouth at bedtime. No facility-administered encounter medications on file as of 03/04/2024. 64 y/o female presents for an exam seen by Dr. Norman Lundy, ELIZABETH. Chief Complaint: I came for my cleaning appointment Medical History: Patient does not report any changes in health issues that could alter the Treatment Plan. Medical consult / medical clearance needed: no SOBOBA: Pain: no Allergies: Reviewed in EHR Medications: Reviewed in EHR Cancer screening: Extra-oral: WNL Intraoral: WNL Extra-oral examination TMJ Deviation - No Clicking - No Tenderness - No Facial symmetry - WNL Lymph nodes - WNL Cheeks - WNL Intraoral examination Soft tissues - WNL Palate - WNL Tongue - WNL Buccal mucosa - WNL Floor of mouth - WNL Vestibules - WNL Glands - WNL Duct area - WNL Oropharynx - WNL Radiographs X-rays taken on: FMX taken today Discussion: -Findings, risks, benefits and alternatives discussed with pt. -Reviewed previous radiograph with pt. -Pointed out areas of bone loss. -Discussed sequelae of bacteria on gingiva and underlying bone. Recommended regular recalls. Advised increased frequency of brushing and flossing. 4-6 week perio reevaluation to determine if further treatment indicated. -Pt had generalized incisal and occlusal and incisal attrition along with cervical abrasion, so nightguard was recommended- pt was informed to discuss sliding fee with dental front office assistant. -Pt is aware that pt is a bruxer. -OHI reviewed. Emphasis was laid on maintaining good oral hygiene regimen at home along with regular visits to dentist. -Pt understood, was satisfied with our conversation and agreed with tx plan; dismissed in good condition. -All questions answered. TMJ/Occlusal - TMJ is within normal limits. Oral Cancer Risk - low Oral Hygiene Instruction Provided - Yes Perio risk - moderate - high Oral Hygiene Instructions: Mcloud two times daily, modified velasco technique, Floss daily, Electric toothbrush, Soft bristle toothbrush, Mcloud Tongue. Referrals - None Treatment plan: -prophy- completed today by Janeen garcia -6 month recall NOTE- GFE needs to be signed. Code correction done. NV: nightguard impression Hygienist: Janeen Mejia Dentist: Dr. Norman Lundy, DMD documented in this encounter Plan of Treatment Upcoming Encounters Date Type Department Care Team (Late st Contact Info) Description 09/02/2024 8:00 AM EDT Office Visit [facility] ADULT D[facility] [address] [place] [address] Janeen Mejia Scheduled Orders Name Type Priority Associated Diagnoses Orde r Schedule PROPHYLAXIS - ADULT Dental Routine 1 Occ urrences starting 03/04/2024 NIGHTGUARD IMPRESSION Dental Routine 1 O ccurrences starting 03/04/2024 Max Max OCCLUSAL GUARD - HARD APPLIANCE, FULL ARCH Dental Routine [address] arting 03/04/2024 documented as of this encounter Procedures Procedure Name Priority Date/Time Associated Diagnosis Comments PROPHYLAXIS - ADULT Routine 03/04/2024 8 :00 AM EST ORAL HYGIENE INSTRUCTIONS Routine 2024 8:00 AM EST DIAGNOSTIC - DIAGNOSTIC IMAGING - INTRAORAL - COMPREHENSIVE SERIES OF RADIOGRAPHIC IMAGES Routine 03/04/2024 8:00 AM EST COMPREHENSIVE ORAL EVALUATION - NEW OR ESTABLISHED PATIENT Routine 03/04/2024 8:00 AM EST 20 B COMPOSITE FILLING Routine [...] 31 EXTRACTION Routine 03/04/2024 12:00 AM EST documented in this encounter Visit Diagnoses Not on filedocumented in this encounter
== END 2024-03-30 13:44 | disposition home or self-care (01) ==
PROVIDERS: PCP Internal Medicine; Visit Provider Nurse Practitioner Family
DX: K21.9 Gastro-esophageal reflux disease without esophagitis (principal); K57.90 Diverticulosis of intestine, part unspecified, without perforation or abscess without bleeding; D12.6 Benign neoplasm of colon, unspecified; R14.0 Abdominal distension (gaseous); K59.01 Slow transit constipation
CPT/HCPCS: 99213

== ENCOUNTER → 2024-03-30 12:47 | Outpatient (BNVA) | payer OTHER, SELFPAY | PROVIDERS: PCP Internal Medicine; Visit Provider Nurse Practitioner Family | DX: K21.9 Gastro-esophageal reflux disease without esophagitis (principal); K57.90 Diverticulosis of intestine, part unspecified, without perforation or abscess without bleeding; K59.01 Slow transit constipation; R10.9 Unspecified abdominal pain; R11.2 Nausea with vomiting, unspecified; D12.6 Benign neoplasm of colon, unspecified; R14.0 Abdominal distension (gaseous); R19.7 Diarrhea, unspecified; E55.9 Vitamin D deficiency, unspecified | CPT/HCPCS: 99212 ==

== ENCOUNTER 2024-03-31 06:22 | Outpatient (REF) | payer OTHER, SELFPAY ==
[2024-03-31 07:50] LABS: Lipase 24 U/L (8-78)
[2024-03-31 08:08] LABS: TSH reflex Free T4 1.34 uIU/mL (0.32-4.0)
[2024-03-31 08:19] LABS: Folate 16.9 ng/mL (> or = 4.0); Vitamin B12 1273 pg/mL (200-900)
[2024-04-07 01:49] LABS: Vitamin D 25-OH, D2 <4 ng/mL; Vitamin D 25-OH, D3 47 ng/mL; Vitamin D 25-OH, Total 47 ng/mL (30-100)
== END 2024-03-31 06:23 | disposition home or self-care (01) ==
LOC: HO.LAB 06:22
PROVIDERS: PCP Internal Medicine; Visit Provider Nurse Practitioner Family
DX: E55.9 Vitamin D deficiency, unspecified (principal); K59.00 Constipation, unspecified; R19.7 Diarrhea, unspecified; R10.9 Unspecified abdominal pain
CPT/HCPCS: 36415; 82306; 82607; 82746; 83690; 84443

== ENCOUNTER 2024-05-27 09:15 | Outpatient (AMB) | payer OTHER, SELFPAY ==
--- NOTE | 2024-05-27 09:17 | A.OFFVIS_ITS ---
Vital Signs 05/27/24 09:21 Height 4 ft 11 in Weight 124 lb 5.451 oz BMI 25.1 BP 96/60 Blood Pressure Location Rt brachial Position Sitting Pulse 78 Pulse Source Pulse Oximeter Pulse Oximetry (%) 93 Oxygen Delivery Method Room Air Intake Visit Reasons: Gastroesophageal reflux disease (GERD) Intake Note: ESTABLISHED PATIENT for GERD + Constipation mgmt. Chief Complaint; Pt reports that she is doing much better since last visit with her new medications. Pt still has occasional episodes but for the most part is doing well. No additional concerns. Licensed Acupuncturist Required: No Accompanied by: Self / Same As Patient Allergies oxycodone [From Percocet] Adverse Reaction (Verified 05/27/24 09:17) Nausea and Vomiting HPI HPI Gastroesophageal reflux disease (GERD): Details: LAST VISIT: Chronic GERD Diverticulosis Tubular adenoma of colon Postprandial abdominal bloating Constipation Plan Patient will continue taking Nexium. Avoid dietary triggers and late night snacking. Occasional epigastric pain postprandially. Patient will be sent for lab work. Will check lipase to rule out chronic pancreatitis. Will check vitamin-D, B12, folate and thyroid study. Patient will eat smaller meals and more often. She will increase fluid intake and activity to promote better bowel motility. Colonoscopy in 3 months, we will repeat endoscopy at the same time to check for Barretts at the GE junction. Patient will follow-up in 3 months, sooner on as needed basis. She is agreeable to this plan and verbalizes understanding of instructions. She was given the opportunity to ask questions and all questions answered ? Thank you for allowing me to participate in her care Orders Orders Vitamin B12 and Folate 03/31/24 R19.7 Vitamin D 25-OH (D2 and D3) 03/31/24 E55.9 TSH reflex Free T4 03/31/24 K59.00 Lipase 03/31/24 R10.9 TODAY'S VISIT Patient is here today for follow-up. Patient reports that she has been doing better after we change her PPI. Patient is taking Nexium every morning half an hour before breakfast. She also tried changing her diet. Patient reports that she is avoiding dietary triggers. Occasional acid reflux depending on what she eats. Patient overall is doing much better. Taking Senokot daily and moving her bowels without any issues. Patient denies any GI concerning symptoms today [facility] Medical History Tubular adenoma of colon Diverticulosis Benign positional vertigo Lateral epicondylitis of elbow Left wrist fracture Left calcaneal fracture Morales's esophagus determined by biopsy History of adenomatous polyp of colon Osteoporosis of lumbar spine History of bone density study Impaired fasting glucose Plantar fasciitis of right foot Trigger finger, left middle finger Left femoral shaft fracture Chronic insomnia Depression, major, recurrent, in partial remission Chronic GERD Surgical History H/O left wrist surgery History of surgery on lower extremity Hx of abdominoplasty Hx of colonoscopy History of esophagogastroduodenoscopy (EGD) Family History Brother Substance use disorder Daughter Mental health disorder Mother Alzheimer disease Social History Household Members: Family Housing: House Alcohol intake: current Alcohol intake frequency: a few times a week Alcohol type: beer Patient Tobacco Use Status: Former Tobacco user Years Smoked: 15 e-Cigarette/Vaping Use: Never Used service: No Current occupational status: employed 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[employer], 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 Sexual orientation: Straight/Heterosexual Gender identity: Female Cognitive needs: No Hearing needs: No Vision needs: Yes Review of Systems Const Denies weight gain and Denies weight loss ENT Reports no additional complaints, Denies dysphagia and Denies odynophagia Card Reports no additional complaints Resp Reports no additional complaints GI Denies abdominal pain, Denies belching, Denies melena, Reports bloating (Occasional), Denies change in bowel habits, Denies dysphagia, Denies excessive flatus, Denies dyspepsia, Reports heartburn (Occasional), Denies diarrhea, Denies loose stools, Denies nausea, Denies odynophagia and Denies vomiting Reports no additional complaints Musc Reports no additional complaints Neuro Reports no additional complaints Psych Reports no additional complaints Endo Reports no additional complaints Physical Exam Vital Signs: Last Vital Signs Pulse 78 05/27/24 09:21 BP 96/60 05/27/24 09:21 Pulse Ox 93 05/27/24 09:21 Oxygen Delivery Method Room Air 05/27/24 09:21 BMI result Body Mass Index 25.1 Const General: healthy appearing, no acute distress and well developed Nutritional Appearance: well nourished Orientation/consciousness: patient oriented x3 Resp Effort & Inspection: normal respiratory effort, able to speak in complete sentences, no tracheal deviation and symmetric chest movement Auscultation: clear to auscultation bilaterally Cardio Rate: regular rate GI Inspection: Yes normal to inspection and No distended Palpation (GI): Soft to palpation, not firm, nontender and No hepatosplenomegaly present Auscultation: normal bowel sounds General: Yes no CVA tenderness Back/Spine/Pelvis Back: no CVA tenderness Skin General skin exam: elasticity normal, turgor normal and dry skin Neuro General: patient oriented x3 Psych Appearance: grossly normal Mental Status: mental status grossly normal Assessment & Plan Assessment & Plan (1) Diverticulosis: Code(s): K57.90 - Diverticulosis of intestine, part unspecified, without perforation or abscess without bleeding Category: Medical (2) Chronic GERD: Code(s): K21.9 - Gastro-esophageal reflux disease without esophagitis Category: Medical (3) Postprandial abdominal bloating: Code(s): R14.0 - Abdominal distension (gaseous) (4) Constipation: Code(s): K59.00 - Constipation, unspecified Qualifiers: Constipation type: slow transit constipation Qualified Code(s): K59.01 - Slow transit constipation Plan Continue Nexium daily. Avoid dietary triggers and late night snacking. Staying upright for minimum 3 hours after meals discussed with patient. Continue senna. Increase fluid intake and activity to promote better bowel motility. Patient will follow-up in our office in 6 months, sooner on as needed basis. She is agreeable to this plan and verbalizes understanding of instructions. She was given the opportunity to ask questions and all questions answered. Thank you for allowing me to participate in her care Coding Level of Care Code Est Pt Level 3 (63992) Diagnoses Diverticulosis K57.90 Chronic GERD K21.9 Postprandial abdominal bloating R14.0 Slow transit constipation K59.01 Constipation type: slow transit constipation Time Spent (min) 30 Comment 20 minutes spent with patient and additional 10 minutes spent reviewing her records
[2024-05-27 09:21] VITALS: BP 96/60; PULSE 78; O2SAT 93; BMI 25.1
--- OUTSIDE RECORDS SUMMARY | 2024-05-27 09:58 | XMS_ITS | Clinical Summary ---
Author Organization [employer] Address [address] [facility] [address] [place] [address] Care Team Providers Care Restorer [employer] Name Role Phone Unavailable Primary Care Provider [...] Description 03/04/2024 8:00 AM EST Office Visit [facility]ULT [facility] [address] [place] [address] Janeen Mejia from Last 3 Months Social [...] Description 09/02/2024 8:00 AM EDT Office Visit [facility] [address] [place] [address] Janeen Mejia Health Maintenance Due Date Last [...] ESTABLISHED PATIENT Routine 03/04/2024 8:00 AM EST INTRAORAL - COMPLETE SERIES OF RADIOGRAPHIC IMAGES Routine 03/04/2024 8:00 [...] AM EST from Last 3 Months Insurance [facility]
== END 2024-05-27 09:40 | disposition home or self-care (01) ==
LOC: HO.HGI 09:16
PROVIDERS: PCP Internal Medicine; Visit Provider Nurse Practitioner Family
DX: K57.90 Diverticulosis of intestine, part unspecified, without perforation or abscess without bleeding (principal); K21.9 Gastro-esophageal reflux disease without esophagitis; R14.0 Abdominal distension (gaseous); K59.01 Slow transit constipation
CPT/HCPCS: 99213

== ENCOUNTER → 2024-05-27 09:15 | Outpatient (BNVA) | payer OTHER, SELFPAY | PROVIDERS: PCP Internal Medicine; Visit Provider Nurse Practitioner Family | DX: K21.9 Gastro-esophageal reflux disease without esophagitis (principal); K57.90 Diverticulosis of intestine, part unspecified, without perforation or abscess without bleeding; K59.01 Slow transit constipation; R14.0 Abdominal distension (gaseous) | CPT/HCPCS: 99212 ==

== ENCOUNTER 2024-06-02 11:04 | Outpatient (AMB) | payer OTHER, SELFPAY ==
--- NOTE | 2024-06-02 11:13 | MHC.PC.OV ---
Vital Signs 06/02/24 11:15 Height 4 ft 11 in Weight 125 lb BMI 25.2 BP 110/70 Blood Pressure Location Rt brachial Position Sitting Respiration 16 Pulse 78 Pulse Source Pulse Oximeter Temp 98.1 F Temp Source Oral Pulse Oximetry (%) 96 Oxygen Delivery Method Room Air Intake Visit Reasons: Rt eye cataract Dr. Hale 06/06 Intake Note: Pt is here today for her pre-op for Rt eye cataract with Dr. Hale on 06/06/24 Allergies oxycodone [From Percocet] Adverse Reaction (Verified 06/02/24 11:17) Nausea and Vomiting Medication List - Last Reconciled 06/02/24 by Kassy Anna MD cholecalciferol (vitamin D3) 25 mcg PO DAILY clonazepam 0.5 mg PO DAILY esomeprazole magnesium 40 mg PO DAILY fluoxetine 20 mg PO QAM Forteo (teriparatide) 20 mcg (0.08 mL) subcut DAILY NS ibuprofen 600 mg PO Q6-8H PRN meclizine 12.5 mg PO BID PRN pen needle, diabetic (Easy Comfort Pen [place]) As directed inject once a day sennosides (senna) 17.2 mg (2 x 8.6 mg) PO BEDTIME zolpidem 10 mg PO BEDTIME PRN Tobacco use date assessed: 06/02/24 Dental Screening Dental Screen Date: 06/02/24 Did you have a dental visit in the last 12 months?: Yes Did you have a dental problem in the last 6 months where you did not have access to dental care?: No Was dental information given to patient?: Patient has dentist HPI Rt eye cataract Dr. Hale 06/06 HPI Details 64-year-old lady with history of chronic GERD and Morales's esophagus, osteoporosis currently on Forteo, and major depression, here today for preoperative exam for cataract surgery on right, requested by Dr. Mccabe scheduled for 06/06/2024, and 06/30/2024 for the left eye. She has major depression and chronic insomnia currently stable and controlled on fluoxetine 20 mg daily in a.m. and takes clonazepam as needed for acute anxiety attacks and zolpidem at night to help with sleep. She is currently being followed by Dr Susana Rajput at [facility]. She has osteoporosis currently on Forteo , , takes vitamin D3 supplements daily. She has been diagnosed to have chronic GERD and Morales's esophagus currently on esomeprazole 40 mg daily, followed at GI clinic in [place]. She has been feeling well, with no complaints at present time [facility] Medical History (Updated 06/02/24 @ 11:36 by Kassy Anna MD) Hx of fracture of femur History of fracture of radius History of wrist fracture Diverticulosis Benign positional vertigo Lateral epicondylitis of elbow Left calcaneal fracture Morales's esophagus determined by biopsy History of adenomatous polyp of colon Osteoporosis of lumbar spine Impaired fasting glucose Plantar fasciitis of right foot Trigger finger, left middle finger Chronic insomnia Depression, major, recurrent, in partial remission Chronic GERD Surgical History H/O left wrist surgery History of surgery on lower extremity Hx of abdominoplasty Hx of colonoscopy History of esophagogastroduodenoscopy (EGD) Family History Brother Substance use disorder Daughter Mental health disorder Mother Alzheimer disease Social History Household Members: Family Housing: House Alcohol intake: current Alcohol intake frequency: a few times a week Alcohol type: beer Patient Tobacco Use Status: Former Tobacco user Years Smoked: 15 e-Cigarette/Vaping Use: Never Used service: No Current occupational status: employed 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 1. Little interest or pleasure in doing things: not at all 2. Feeling down, depressed, or hopeless: not at all 3. Trouble falling or staying asleep, or sleeping too much: not at all 4. Feeling tired or having little energy: not at all 5. Poor appetite or overeating: not at all 6. Feeling bad about yourself - or that you are a failure or have let yourself or your family down: not at all 7. Trouble concentrating on things, such as reading the newspaper or watching television: not at all 8. Moving or speaking so slowly that other people could have noticed. Or the opposite - being so fidgety or restless that you have been moving around a lot more than usual: not at all 9. Thoughts that you would be better off or of hurting yourself in some way: not at all Total score: 0 Depression Screening Interpretation: Negative (Depression controlled on fluoxetine and takes clonazepam as needed, followed by Dr. Susana Ho) Depression Screening Done: Yes 42980 - PHQ-9 Billing: Yes Source: Developed by Drs. Avila Cox, Carrol Miranda, Magdaleno Remy and colleagues, with an educational mindy from [employer]. Thrive Questionnaire Date Thrive assessed: 06/02/24 I am a: Patient What is your living situation today?: I have a steady place to live Within the past 12 months, did the food you bought not last and you didn't have the money to get more?: Never true Within the past 12 months, did you worry whether your food would run out before you got money to buy more?: Never true Do you have trouble paying for medicines?: No Do you have trouble getting transportation to medical appointments?: No Do you have trouble paying your heating and electricity bill?: No Do you have trouble taking care of your child, family member or friend?: No Do you have trouble with day-to-day activities such as bathing, preparing meals, shopping, managing finances, etc.?: No Are you currently unemployed and looking for a job?: No Are you interested in more education?: No THRIVE Score: 0 AUDIT C Alcohol Use Questionnaire (AUDIT-C) 1. How often do you have a drink containing alcohol?: Never Total Score: 0 LEONARDO-7 AMB Questionnaire LEONARDO-7 Date LEONARDO - 7 assessed: 06/02/24 Feeling nervous, anxious, or on edge: 0 = Not at all Not being able to stop or control worryin = Not at all Worrying too much about different things: 0 = Not at all Trouble relaxin = Not at all Being so restless that it is hard to sit still: 0 = Not at all Becoming easily annoyed or irritable: 0 = Not at all Feeling afraid as if something awful might happen: 0 = Not at all Total LEONARDO-7 score (0-4 normal; 5-9 mild; 10-14 moderate; 15-21 severe): 0 Source: Developed by Drs. Avila Cox, Carrol Miranda, Magdaleno Remy and colleagues, with an educational mindy from [employer]. LEONARDO-7 Assessment Billing LEONARDO-7 Assessment Tool: LEONARDO-7 Assessment 72195 Review of Systems Const Denies body aches, Reports difficulty sleeping, Denies fatigue, Denies frequent falls, Denies headache(s), Denies weight gain and Denies weight loss Eyes Reports blurry vision ENT Reports no additional complaints, Reports Normal hearing present, Denies dysphagia and Denies headache(s) Card Reports no additional complaints Resp Reports no additional complaints GI Denies abdominal pain, Denies belching, Denies melena, Reports bloating (Occasional), Denies change in bowel habits, Denies dysphagia and Reports heartburn (Occasional) Reports no additional complaints Musc Reports no additional complaints Skin/Breast Denies breast pain, Denies breast mass and Denies rash Neuro Reports no additional complaints, Reports Normal hearing present, Denies frequent falls and Denies headache(s) Psych Reports no additional complaints Endo Reports no additional complaints and Denies fatigue Андрей/Lymph Reports no additional complaints Aller/Immun Reports no additional complaints Physical exam (Primary Care) Vital Signs: Last Vital Signs Temp 98.1 F 06/02/24 11:15 Pulse 78 06/02/24 11:15 Resp 16 06/02/24 11:15 BP 110/70 06/02/24 11:15 Pulse Ox 96 06/02/24 11:15 Oxygen Delivery Method Room Air 06/02/24 11:15 BMI result Body Mass Index 25.2 Tobacco/Smoking Status: Tobacco use Status Tobacco use date assessed 06/02/24 06/02/24 11:16 Patient Tobacco Use Status Former Tobacco user 06/02/24 11:16 e-Cigarette/Vaping Use Never Used 06/02/24 11:16 Depression Screening Interpretation: Negative (Depression controlled on fluoxetine and takes clonazepam as needed, followed by Dr. Susana Ho) Thrive Assessment: Date of Thrive Assessment Date Thrive assessed 06/02/24 06/02/24 11:19 Const Other: Alert oriented x3, no acute distress noted Orientation/consciousness: patient oriented x3 HENMT Head: Yes normocephalic Ears: external ears normal, TM's normal bilaterally and EAC's normal General nose exam: Normal external nose present Face and sinus: Yes face symmetric Mouth: Normal oral and palatal mucosa present, oropharynx normal and moist mucous membranes Eyes General: appearance normal, both eyes and all related structures Neck Other: Supple with no lymphadenopathy Resp Auscultation: clear to auscultation bilaterally Cardio Other: S1-S2 present regular rate and rhythm GI Palpation (GI): Soft to palpation, nontender, no guarding and no masses Auscultation: normal bowel sounds General: Yes no CVA tenderness Back/Spine/Pelvis Back: no CVA tenderness Neuro General: patient oriented x3, gait normal, tone normal, moves all extremities, no focal motor deficits and CN's II-XI intact bilaterally Cranial nerves: Yes Normal hearing present Gait exam (Neuro): Normal gait present Extrem General: Yes full ROM, Yes no joint enlargement, Yes no clubbing, cyanosis or edema and Yes normal gait Psych Appearance: grossly normal Mental Status: mental status grossly normal Affect: normal affect Results Reviewed Results Reviewed: Name: Cari Yap Age/Sex: 63/F : 1960 Unit#: [id number] Attend Dr: Kassy Anna MD Re08/07/23 Status: DEP [facility] Disch: SPEC : [id number] SHERYL: 08/07/23 STATUS: COMP REQ : [id number] RECD: 08/07/[address]: Kassy Anna MD COMP: 08/07/23 ENTERED: 08/07/[address] [facility] [address]: ORDERED: CBC Auto Diff Test Result Flag Reference WBC 6.3 4.8-10.8 X10*3/uL RBC 4.23 4.20-5.50 X10*6/uL HGB 12.2 12.0-16.0 g/dl HCT 37.9 37.0-47.0 % MCV 89.6 80.0-98.0 fL MCH 28.8 27.0-33.0 pg MCHC 32.2 31.0-35.0 g/dl RDW 13.2 11.0-16.0 % PLT 314 160-400 X10*3/uL MPV 10.1 9.4-12.3 fL Neut Pct Auto 42.5 L 45-73 % ImGran Pct Auto 0.5 H 0.0-0.4 % Lymp Pct Auto 44.7 H 20-40 % Summit Pct Auto 9.6 2-11 % Eos Pct Auto 2.4 0-4 % Baso Pct Auto 0.3 0-2 % NRBC Pct Auto 0.0 0.0-0.2 /100WBC ANC Neut Abs # 2.7 2.0-8.3 x10*3/uL ImGran Abs Auto 0.03 0.00-0.03 X10*3/uL Lymph Abs Auto 2.8 1.2-4.9 X10*3/uL Summit Abs Auto 0.6 0.1-1.2 X10*3/uL Eos Abs Auto 0.2 0.0-0.4 X10*3/uL Baso Abs Auto 0.0 0.0-0.2 X10*3/uL NRBC Abs Auto 0.000 0.0-0.012 X10*3/uL Name: Cari Yap Age/Sex: 63/F : 1960 Unit#: [id number] Attend Dr: Kassy Anna MD Re08/07/23 Status: DEP REF Location: [facility] Disch: SPEC : [id number] SHERYL: 08/07/23 STATUS: COMP REQ : [id number] RECD: 08/07/23 [facility] DR: Kassy Anna MD COMP: 08/07/23 ENTERED: 08/07/23 [facility] [address]: ORDERED: Met Prof Fast, AST, ALT, Lipid Panel, Vitamin D 25-OH Test Result Flag Reference Sodium 139 135-145 mmol/L Potassium 4.2 3.3-5.1 mmol/L CL 107 96-108 mmol/L CO2 25 22-29 mmol/L Gap 11 L 12-20 BUN 23 H 9-16 mg/dL Creat 0.74 0.5-1.4 mg/dL EGFR > 60 NOTE: For -Citizen Of [place] individuals, multiply the result by 1.210. Chronic Kidney Disease: Estimated GFR < 60 mL/min/1.73m2 Severe Kidney Disease: Estimated GFR < 15 mL/min/1.73m2 FBS 103 H 60-99 mg/dL A fasting glucose from 100-125 mg/dl is considered impaired (pre-diabetes). CA 9.1 8.4-10.2 mg/dL AST (GOT) 23 5-31 U/L ALT (GPT) 23 0-31 U/L Triglyceride 115 <150 mg/dL Desirable Triglyceride: less than 150 mg/dL Borderline High Triglyceride 150-199 mg/dL High Triglyceride: 200-499 mg/dL Very High Triglyceride: greater than or equal to 5OO mg/dL Cholesterol 187 <200 mg/dL Desirable Cholesterol: less than 200 mg/dL Borderline High Cholesterol: 200-239 mg/dL High Cholesterol: greater than 239 mg/dL LDL Calculated 108 H <100 mg/dL Desirable LDL: less than 100 mg/dL Near Optimal/Above Optimal LDL: 110-129 mg/dL Borderline High LDL: 130-159 mg/dL High LDL: 160-189 mg/dL Very High LDL: greater than or equal to 190 mg/dL HDL 56 >40 mg/dL Desirable HDL: greater than 40 mg/dL Note: This HDL assay may give artificially low results in patients with liver disease. Vit D 25-OH Tot 65.9 >30 ng/mL Health Based Reference Values* < 20 ng/mL Deficient 20-30 ng/mL Insufficient > 30 ng/mL Sufficient Laboratory Tests 01/20/23 03/31/24 11:03 06:30 Hgb A1c (Clinic) 5.6 Vitamin B12 1273 H 25-OH Vitamin D Total 47 Folate 16.9 TSH 1.34 Coding Level of Care Code Est Pt Level 4 (09764) Diagnoses Encounter for pre-operative examination Z01.818 Chronic GERD K21.9 Impaired fasting glucose R73.01 Osteoporosis of lumbar spine M81.0 Morales's esophagus determined by biopsy K22.70 Additional Codes LEONARDO-7 Assessment Billing - LEONARDO-7 Assessment Tool: LEONARDO-7 Assessment 19854 ([id number]) PHQ-9 - 84923 - PHQ-9 Billing: Yes ([id number]) Assessment & Plan Assessment & Plan (1) Encounter for pre-operative examination: Code(s): Z01.818 - Encounter for other preprocedural examination Plan: 64-year-old lady here today for preoperative exam for cataract surgery scheduled for 06/06/2024 for the right eye and 06/30/2024 for the left eye requested by Dr. Mccabe. She has no known coronary artery or pulmonary disease. Preoperative examination is unremarkable. Recent labs are also within normal limits. Patient not on any blood thinner. She has a low cardiac risk index for proposed surgery (2) Chronic GERD: Code(s): K21.9 - Gastro-esophageal reflux disease without esophagitis Category: Medical Plan: Continue esomeprazole, avoidance of triggers for heartburn. Currently followed by [facility] (3) Impaired fasting glucose: Code(s): R73.01 - Impaired fasting glucose Category: Medical Plan: Latest fasting glucose are within normal limits, continue adherence to healthy eating habits and regular exercise (4) Osteoporosis of lumbar spine: Comment: 01/28/2023 Severe osteoporosis based on the lowest T-score value of -3.5 in the lumbar spine , currently on 14 Code(s): M81.0 - Age-related osteoporosis without current pathological fracture Category: Medical Plan: Currently on Forteo taking vitamin-D 3 supplements, reinforced importance of doing regular weight-bearing exercise, taking adequate calcium from dietary sources, currently followed by Dr. Montero (5) Morales's esophagus determined by biopsy: Code(s): K22.70 - Morales's esophagus without dysplasia Category: Medical Plan: Continue esomeprazole 40 mg daily , followed by [facility] GI Orders: Orders Vitamin D 25-OH Total 08/17/24 K21.9 - Gastro-esophageal reflux disease without esophagitis, K22.70 - Morales's esophagus without dysplasia, M81.0 - Age-related osteoporosis without current pathological fracture, R73.01 - Impaired fasting glucose, Z01.818 - Encounter for other preprocedural examination, Z13.220 - Encounter for screening for lipoid disorders Vitamin B12 and Folate 08/17/24 K21.9 - Gastro-esophageal reflux disease without esophagitis, K22.70 - Morales's esophagus without dysplasia, M81.0 - Age-related osteoporosis without current pathological fracture, R73.01 - Impaired fasting glucose, Z01.818 - Encounter for other preprocedural examination, Z13.220 - Encounter for screening for lipoid disorders Lipid Panel 08/17/24 K21.9 - Gastro-esophageal reflux disease without esophagitis, K22.70 - Morales's esophagus without dysplasia, M81.0 - Age-related osteoporosis without current pathological fracture, R73.01 - Impaired fasting glucose, Z13.220 - Encounter for screening for lipoid disorders Basic Metabolic Panel Fasting 08/17/24 K21.9 - Gastro-esophageal reflux disease without esophagitis, K22.70 - Morales's esophagus without dysplasia, M81.0 - Age-related osteoporosis without current pathological fracture, R73.01 - Impaired fasting glucose, Z01.818 - Encounter for other preprocedural examination, Z13.220 - Encounter for screening for lipoid disorders Complete Blood Count Auto Diff 08/17/24 K21.9 - Gastro-esophageal reflux disease without esophagitis, K22.70 - Morales's esophagus without dysplasia, M81.0 - Age-related osteoporosis without current pathological fracture, R73.01 - Impaired fasting glucose, Z01.818 - Encounter for other preprocedural examination, Z13.220 - Encounter for screening for lipoid disorders
[2024-06-02 11:15] VITALS: BP 110/70; PULSE 78; RESP 16; TEMP 36.7; O2SAT 96; BMI 25.2
--- OUTSIDE RECORDS SUMMARY | 2024-06-02 13:21 | XMS_ITS | Clinical Summary ---
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 [address] [place] [address] Janeen Mejia from Last 3 Months Social [...] Description 09/02/2024 8:00 AM EDT Office Visit [facility] [address] [place] [address] Janeen Mejia Health Maintenance Due Date Last [...] AM EST from Last 3 Months Insurance [facility]
== END 2024-06-02 11:50 | disposition home or self-care (01) ==
LOC: HO.HMCC 11:05
PROVIDERS: PCP Internal Medicine; Visit Provider Internal Medicine
DX: Z01.818 Encounter for other preprocedural examination (principal); K21.9 Gastro-esophageal reflux disease without esophagitis; R73.01 Impaired fasting glucose; M81.0 Age-related osteoporosis without current pathological fracture; K22.70 Barrett's esophagus without dysplasia

== ENCOUNTER → 2024-06-02 11:04 | Outpatient (BNVA) | payer OTHER, SELFPAY | PROVIDERS: PCP Internal Medicine; Visit Provider Internal Medicine | DX: Z01.818 Encounter for other preprocedural examination (principal); K21.9 Gastro-esophageal reflux disease without esophagitis; R73.01 Impaired fasting glucose; M81.0 Age-related osteoporosis without current pathological fracture; K22.70 Barrett's esophagus without dysplasia | CPT/HCPCS: 96127; 99212 ==

== ENCOUNTER 2024-07-19 08:26 | Outpatient (AMB) | payer OTHER, SELFPAY ==
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
[2024-07-19 08:30] VITALS: BP 108/64; PULSE 73; O2SAT 97; BMI 25.4
== END 2024-07-19 08:39 | disposition home or self-care (01) ==
LOC: HO.ENCR 08:27
PROVIDERS: PCP Internal Medicine; Visit Provider Internal Medicine Endocrinology, Diabetes & Metabolism
DX: M81.0 Age-related osteoporosis without current pathological fracture (principal)
CPT/HCPCS: 99213

== ENCOUNTER → 2024-07-19 08:26 | Outpatient (BNVA) | payer OTHER, SELFPAY | PROVIDERS: PCP Internal Medicine; Visit Provider Internal Medicine Endocrinology, Diabetes & Metabolism | DX: M81.0 Age-related osteoporosis without current pathological fracture (principal) | CPT/HCPCS: 99212 ==

== ENCOUNTER 2024-08-20 09:20 | Outpatient (REF) | payer OTHER, SELFPAY ==
--- OUTSIDE RECORDS SUMMARY | 2024-08-20 09:22 | XMS_ITS | Clinical Summary ---
Author Organization [employer] Address [address] [place] [address] Care Team Providers Care Varnish Dipper Name Role Phone Unavailable Primary Care Provider [...] Encounters Date Type Department Care Team Description 08/04/2024 Telephone [facility] [address] [place] [address] Janeen Mejia from Last 3 Months Social [...] Upcoming Encounters Date Type Department Care Team ([facility] Contact Info) Description 09/06/2024 8:00 AM EDT Office Visit [facility] [address] [place] [address] Janeen Mejia Health Maintenance Due Date Last Done Comments CT Colonography 1961 Colonoscopy 1961 Colorectal Cancer Screening 1961 Depression Screening 1961 FIT DNA/Cologuard 1961 FIT 1961 FOBT 1961 HIV Screening 1961 SDOH Screening 1961 Sigmoidoscopy 1961 Disability Screening 1961 Alcohol/Substance Use Screening 1973 Hepatitis C [...] 12/07/2020 Pneumococcal Vaccine: 50+ Years Completed 01/03/2022 COVID-19 Vaccine Completed 12/04/2023, 03/2022, 01/03/2022, Additional [...] patient's age to complete this topic Meningococcal B Vaccine Aged Out No l onger eligible based on patient's age to complete [...] ADULT Routine 03/04/2024 8 :00 AM EST INTRAORAL - COMPLETE SERIES OF RADIOGRAPHIC IMAGES Routine 03/04/2024 8:00 AM EST COMPREHENSIVE ORAL EVALUATION - NEW OR ESTABLISHED PATIENT Routine 03/04/2024 8:00 AM EST from Last 3 Months or Most Recently Relevant to Health Maintenance Insurance [facility]
[2024-08-20 09:42] LABS: MANUAL DIFF FLAG NO
[2024-08-20 10:23] LABS: Basophils Percent Auto 0.3 % (0-2); Eosinophils Absolute Auto 0.2 X10*3/uL (0.0-0.4); Eosinophils Percent Auto 3.4 % (0-4); Hematocrit 38.7 % (37.0-47.0); Hemoglobin 12.6 g/dl (12.0-16.0); Imm Gran Abs Auto 0.03 X10*3/uL (0.00-0.03); Imm Gran Pct Auto 0.5 % (0.0-0.4); Lymphocytes Absolute Auto 2.6 X10*3/uL (1.2-4.9); Lymphocytes Percent Auto 41.7 % (20-40); Mean Corpuscular HGB Conc 32.6 g/dl (31.0-35.0); Mean Corpuscular Hemoglobin 28.4 pg (27.0-33.0); Mean Corpuscular Volume 87.2 fL (80.0-98.0); Monocytes Absolute Auto 0.5 X10*3/uL (0.1-1.2); Monocytes Percent Auto 8.7 % (2-11); Neutrophils Absolute Auto 2.8 x10*3/uL (2.0-8.3); Neutrophils Percent Auto 45.4 % (45-73); Platelet Count 295 X10*3/uL (160-400); Red Blood Count 4.44 X10*6/uL (4.20-5.50); Red Cell Distribution Width 14.3 % (11.0-16.0); White Blood Count 6.1 X10*3/uL (4.8-10.8)
[2024-08-20 11:12] LABS: Anion Gap 12 (12-20); Blood Urea Nitrogen 19 mg/dL (9-16); Carbon Dioxide 30 mmol/L (22-29); Chloride 103 mmol/L (96-108); Cholesterol 176 mg/dL (<200); Estimated Glomerular Filt Rate > 60; Glucose Fasting 102 mg/dL (60-99); HDL Cholesterol 55 mg/dL (>40); LDL Cholesterol Calculated 90 mg/dL (<100); Potassium 4.7 mmol/L (3.3-5.1); Sodium 140 mmol/L (135-145); Triglycerides 159 mg/dL (<150)
[2024-08-20 11:15] LABS: Vitamin D 25-OH Total 45.5 ng/mL (>30)
[2024-08-20 11:37] LABS: Folate 15.4 ng/mL (> or = 4.0); Vitamin B12 967 pg/mL (200-900)
== END 2024-08-20 09:21 | disposition home or self-care (01) ==
LOC: HO.LAB 09:20
PROVIDERS: PCP Internal Medicine; Visit Provider Internal Medicine
DX: Z01.818 Encounter for other preprocedural examination (principal); R73.01 Impaired fasting glucose; K21.9 Gastro-esophageal reflux disease without esophagitis; K22.70 Barrett's esophagus without dysplasia; M81.0 Age-related osteoporosis without current pathological fracture; Z13.220 Encounter for screening for lipoid disorders
CPT/HCPCS: 36415; 80048; 80061; 82306; 82607; 82746; 85025

== ENCOUNTER 2024-08-24 12:30 | Outpatient (AMB) | payer OTHER, SELFPAY ==
--- NOTE | 2024-08-24 12:34 | MHC.PC.OV ---
Vital Signs 08/24/24 12:56 Height 4 ft 11 in Weight 129 lb BMI 26.1 BP 116/68 Blood Pressure Location Lt brachial Position Sitting Pulse 72 Pulse Source Pulse Oximeter Temp 98.7 F Temp Source Oral Pulse Oximetry (%) 96 Oxygen Delivery Method Room Air Intake Visit Reasons: Annual PE Intake Note: Pt is here today for her PE: Last mammogram 02/03/24, papsmear 03/19/23, colonoscopy 07/02/23 [employer] Required: No Is last menstrual period known: No Post menopausal: Yes Patient : No Allergies oxycodone (From Percocet) Adverse Reaction (Verified 08/24/24 13:16) Nausea and Vomiting Medication List - Last Reconciled 08/24/24 by Kassy Anna MD cholecalciferol (vitamin D3) 25 mcg PO DAILY clonazepam 0.5 mg PO DAILY esomeprazole magnesium 40 mg PO DAILY fluoxetine 20 mg PO QAM Forteo (teriparatide) 20 mcg (0.08 mL) subcut DAILY NS ibuprofen 600 mg PO Q6-8H PRN meclizine 12.5 mg PO BID PRN pen needle, diabetic (Easy Comfort Pen Lamar) As directed inject once a day sennosides (senna) 17.2 mg (2 x 8.6 mg) PO BEDTIME zolpidem 10 mg PO BEDTIME PRN Tobacco use date assessed: 08/24/24 Dental Screening Dental Screen Date: 06/02/24 Did you have a dental visit in the last 12 months?: Yes Did you have a dental problem in the last 6 months where you did not have access to dental care?: No Was dental information given to patient?: Patient has dentist HPI Annual PE HPI Details 64-year-old lady with history of chronic GERD and Morales's esophagus controlled on esomeprazole followed by [facility], osteoporosis currently on Forteo, history of major depression, and chronic insomnia currently stable and controlled on fluoxetine 20 mg daily and clonazepam as needed for acute anxiety attacks currently followed by Dr. Susana Pandya at [facility] here today for physical exam. She takes zolpidem at night as needed for insomnia She is up-to-date with her breast cancer screening, with last mammogram done 02/03/2024 with benign findings. She sees Dr. Lobo for her tobacco buyer exam, last Pap was in 2023 with benign findings. She sees Dr. Lund, up-to-date with her screening colonoscopy done 07/02/2023 with removal of a tubular adenoma polyp, repeat colonoscopy due again in 2026. Upper endoscopy was done on same time which showed presence of Morales's esophagus with active esophagitis currently on esomeprazole 40 mg daily. [facility] Medical History (Updated 08/24/24 @ 13:29 by Kassy Anna MD) Chronic right shoulder pain Hx of fracture of femur History of fracture of radius History of wrist fracture Diverticulosis Benign positional vertigo Lateral epicondylitis of elbow Left calcaneal fracture Morales's esophagus determined by biopsy History of adenomatous polyp of colon Osteoporosis of lumbar spine Impaired fasting glucose Plantar fasciitis of right foot Trigger finger, left middle finger Chronic insomnia Depression, major, recurrent, in partial remission Chronic GERD Surgical History Hx of cataract surgery H/O left wrist surgery History of surgery on lower extremity Hx of abdominoplasty Hx of colonoscopy History of esophagogastroduodenoscopy (EGD) Family History Brother Substance use disorder Daughter Mental health disorder Mother Alzheimer disease Social History Household Members: Family Housing: House Alcohol intake: current Alcohol intake frequency: a few times a week Alcohol type: beer Patient Tobacco Use Status: Former Tobacco user Years Smoked: 15 e-Cigarette/Vaping Use: Never Used service: No Current occupational status: employed 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 1. Little interest or pleasure in doing things: not at all 2. Feeling down, depressed, or hopeless: not at all 3. Trouble falling or staying asleep, or sleeping too much: not at all 4. Feeling tired or having little energy: not at all 5. Poor appetite or overeating: not at all 6. Feeling bad about yourself - or that you are a failure or have let yourself or your family down: not at all 7. Trouble concentrating on things, such as reading the newspaper or watching television: not at all 8. Moving or speaking so slowly that other people could have noticed. Or the opposite - being so fidgety or restless that you have been moving around a lot more than usual: not at all 9. Thoughts that you would be better off or of hurting yourself in some way: not at all Total score: 0 Depression Screening Interpretation: Negative (Depression controlled on fluoxetine and takes clonazepam as needed, followed by Dr. Susana Pandya) Depression Screening Done: Yes 79346 - PHQ-9 Billing: Yes Source: Developed by Drs. Avila Cox, Carrol Miranda, Magdaleno Remy and colleagues, with an educational mindy from [employer]. Thrive Questionnaire Date Thrive assessed: 06/02/24 I am a: Patient What is your living situation today?: I have a steady place to live Within the past 12 months, did the food you bought not last and you didn't have the money to get more?: Never true Within the past 12 months, did you worry whether your food would run out before you got money to buy more?: Never true Do you have trouble paying for medicines?: No Do you have trouble getting transportation to medical appointments?: No Do you have trouble paying your heating and electricity bill?: No Do you have trouble taking care of your child, family member or friend?: No Do you have trouble with day-to-day activities such as bathing, preparing meals, shopping, managing finances, etc.?: No Are you currently unemployed and looking for a job?: No Are you interested in more education?: No THRIVE Score: 0 AUDIT C Alcohol Use Questionnaire (AUDIT-C) 1. How often do you have a drink containing alcohol?: Never Total Score: 0 LEONARDO-7 AMB Questionnaire LEONARDO-7 Date LEONARDO - 7 assessed: 06/02/24 Source: Developed by Drs. Avila Cox, Carrol Miranda, Magdaleno Remy and colleagues, with an educational mindy from [employer]. Review of Systems Const Denies body aches, Reports difficulty sleeping, Denies fatigue, Denies frequent falls, Denies headache(s), Denies weight gain and Denies weight loss Eyes Details: Sees [facility], had cataract surgery, still wears reading glasses ENT Reports no additional complaints, Reports Normal hearing present, Denies dysphagia and Denies headache(s) Card Reports no additional complaints Resp Reports no additional complaints GI Denies abdominal pain, Denies belching, Denies melena, Reports bloating (Occasional), Denies change in bowel habits, Denies dysphagia and Reports heartburn (Occasional) Reports no additional complaints Musc Reports no additional complaints Skin/Breast Denies breast pain, Denies breast mass and Denies rash Neuro Reports no additional complaints, Reports Normal hearing present, Denies frequent falls and Denies headache(s) Psych Reports no additional complaints Endo Reports no additional complaints and Denies fatigue Андрей/Lymph Reports no additional complaints Aller/Immun Reports no additional complaints Physical exam (Primary Care) Vital Signs: Last Vital Signs Temp 98.7 F 08/24/24 12:56 Pulse 72 08/24/24 12:56 BP 116/68 08/24/24 12:56 Pulse Ox 96 08/24/24 12:56 Oxygen Delivery Method Room Air 08/24/24 12:56 BMI result Body Mass Index 26.1 Tobacco/Smoking Status: Tobacco use Status Tobacco use date assessed 08/24/24 08/24/24 13:02 Patient Tobacco Use Status Former Tobacco user 08/24/24 12:37 e-Cigarette/Vaping Use Never Used 08/24/24 12:37 PHQ-9: PHQ-9 Score PHQ-9: Total score 0 08/24/24 13:41 Depression Screening Interpretation: Negative (Depression controlled on fluoxetine and takes clonazepam as needed, followed by Dr. Susana Pandya) Thrive Assessment: Date of Thrive Assessment Date Thrive assessed 06/02/24 08/24/24 12:37 Advance Care Planning discussion: Completed/Scanned Date of discussion: 08/24/24 Who was present: Patient Forms completed: Health Care Proxy Time spent: 16-45 minutes Actual minutes spent: 3 Const Other: Alert oriented x3, no acute distress noted General: no acute distress Nutritional Appearance: average body habitus Orientation/consciousness: patient oriented x3 HENMT Head: Yes normocephalic Ears: external ears normal, TM's normal bilaterally and EAC's normal General nose exam: Normal external nose present Face and sinus: Yes face symmetric Mouth: Normal oral and palatal mucosa present, oropharynx normal and moist mucous membranes Eyes General: appearance normal, both eyes and all related structures Neck Other: Supple with no lymphadenopathy Resp Auscultation: clear to auscultation bilaterally Cardio Other: S1-S2 present regular rate and rhythm GI Palpation (GI): Soft to palpation, nontender, no guarding and no masses Auscultation: normal bowel sounds General: Yes no CVA tenderness Back/Spine/Pelvis Back: no CVA tenderness Skin General skin exam: no rashes or lesions noted Neuro General: patient oriented x3 Cranial nerves: Yes Normal hearing present Gait exam (Neuro): Normal gait present Extrem Other: Decreased range of motion in right shoulder on lateral flexion and abduction more than 90 degrees General: Yes full ROM, Yes no joint enlargement, Yes no clubbing, cyanosis or edema and Yes normal gait Psych Appearance: grossly normal and well kempt Mental Status: mental status grossly normal Speech and movement: Normal speech and movement present Affect: normal affect Results Reviewed Results Reviewed: Name: Cari Yap Age/Sex: 64/F : 1960 Unit#: [id number] Attend Dr: Kassy Anna MD Re08/20/24 Status: [facility]P [facility] SPEC : [id number] SHERYL: 08/20/24 STATUS: COMP REQ : [id number] RECD: 08/20/[address]: Kassy Anna MD COMP: 08/20/24 ENTERED: 08/20/[address] [facility] [address]: ORDERED: CBC Auto Diff Test Result Flag Reference WBC 6.1 4.8-10.8 X10*3/uL RBC 4.44 4.20-5.50 X10*6/uL HGB 12.6 12.0-16.0 g/dl HCT 38.7 37.0-47.0 % MCV 87.2 80.0-98.0 fL MCH 28.4 27.0-33.0 pg MCHC 32.6 31.0-35.0 g/dl RDW 14.3 11.0-16.0 % PLT 295 160-400 X10*3/uL MPV 10.0 9.4-12.3 fL Neut Pct Auto 45.4 45-73 % ImGran Pct Auto 0.5 H 0.0-0.4 % Lymp Pct Auto 41.7 H 20-40 % Beadle Pct Auto 8.7 2-11 % Eos Pct Auto 3.4 0-4 % Baso Pct Auto 0.3 0-2 % NRBC Pct Auto 0.0 0.0-0.2 /100WBC ANC Neut Abs # 2.8 2.0-8.3 x10*3/uL ImGran Abs Auto 0.03 0.00-0.03 X10*3/uL Lymph Abs Auto 2.6 1.2-4.9 X10*3/uL Beadle Abs Auto 0.5 0.1-1.2 X10*3/uL Eos Abs Auto 0.2 0.0-0.4 X10*3/uL Baso Abs Auto 0.0 0.0-0.2 X10*3/uL NRBC Abs Auto 0.000 0.0-0.012 X10*3/uL Name: Cari Yap Age/Sex: 64/F : 1960 Unit#: [id number] Attend Dr: Kassy Anna MD Re08/20/24 Status: [facility]P [facility]: SPEC : [id number] SHERYL: 08/20/24 STATUS: COMP REQ : [id number] RECD: 08/20/[address] [facility] [address]: Kassy Anna MD COMP: 08/20/245 ENTERED: 08/20/24 [facility] [address]: ORDERED: Met Prof Fast, Lipid Panel, Vitamin D 25-OH Test Result Flag Reference Sodium 140 135-145 mmol/L Potassium 4.7 3.3-5.1 mmol/L CL 103 96-108 mmol/L CO2 30 H 22-29 mmol/L Gap 12 12-20 BUN 19 H 9-16 mg/dL Creat 0.62 0.5-1.4 mg/dL eGFR > 60 Chronic Kidney Disease: Estimated GFR < 60 mL/min/1.73m2 Severe Kidney Disease: Estimated GFR < 15 mL/min/1.73m2 FBS 102 H 60-99 mg/dL A fasting glucose from 100-125 mg/dl is considered impaired (pre-diabetes). CA 10.0 # 8.4-10.2 mg/dL Triglyceride 159 H <150 mg/dL Desirable Triglyceride: less than 150 mg/dL Borderline High Triglyceride 150-199 mg/dL High Triglyceride: 200-499 mg/dL Very High Triglyceride: greater than or equal to 5OO mg/dL Cholesterol 176 <200 mg/dL Desirable Cholesterol: less than 200 mg/dL Borderline High Cholesterol: 200-239 mg/dL High Cholesterol: greater than 239 mg/dL LDL Calculated 90 <100 mg/dL Desirable LDL: less than 100 mg/dL Near Optimal/Above Optimal LDL: 110-129 mg/dL Borderline High LDL: 130-159 mg/dL High LDL: 160-189 mg/dL Very High LDL: greater than or equal to 190 mg/dL HDL 55 >40 mg/dL Desirable HDL: greater than 40 mg/dL Note: This HDL assay may give artificially low results in patients with liver disease. Vitamin D 25-OH 45.5 >30 ng/mL Health Based Reference Values* < 20 ng/mL Deficient 20-30 ng/mL Insufficient > 30 ng/mL Sufficient Coding Level of Care Code New Pt Prev Care 40-64y(09445) Diagnoses Annual visit for general adult medical examination with abnormal findings Z00.01 Lateral epicondylitis of left elbow M77.12 Laterality: left Depression, major, recurrent, in partial remission F33.41 Impaired fasting glucose R73.01 Osteoporosis of lumbar spine M81.0 Morales's esophagus determined by biopsy K22.70 Chronic GERD K21.9 History of adenomatous polyp of colon Z86.010 Chronic insomnia F51.04 Advanced directives, counseling/discussion Z71.89 Chronic right shoulder pain M25.511; G89.29 Additional Codes PHQ-9 - 88067 - PHQ-9 Billing: Yes ([id number]) Vital Signs *Quality* - Advance Care Planning discussion: Completed/Scanned ([id number]) Vital Signs *Quality* - Time spent: 16-45 minutes ([id number]) Assessment & Plan Assessment & Plan (1) Annual visit for general adult medical examination with abnormal findings: Code(s): Z00.01 - Encounter for general adult medical examination with abnormal findings Plan: Reviewed recent fasting lab results with patient. Recommended dental visit every 6 months and regular eye exams, at least every 2 years. Take adequate calcium in diet and vitamin-D 3 at 2000 IU per cap once a day, in addition to weight-bearing exercises to help maintain good muscle tone and weight control. Instructed to do self-breast exam, and continue to get yearly mammogram. Up-to-date with all her vaccines (2) Lateral epicondylitis of elbow: Code(s): M77.10 - Lateral epicondylitis, unspecified elbow Category: Medical Qualifiers: Laterality: left Qualified Code(s): M77.12 - Lateral epicondylitis, left elbow Plan: Orthopedics onset obtained (3) Depression, major, recurrent, in partial remission: Comment: ff'd by Dr susana padnya Code(s): F33.41 - Major depressive disorder, recurrent, in partial remission Category: Medical Plan: Psychiatry controlled on fluoxetine and clonazepam taking as needed (4) Impaired fasting glucose: Code(s): R73.01 - Impaired fasting glucose Category: Medical Plan: Your previous fasting blood sugars were elevated above 100 mg/dL. Impaired glucose metabolism increases the risk for developing diabetes mellitus type 2, as well as heart attack and stroke later on. Lifestyle changes that promotes weight loss, healthy eating habits, and regular exercise are important, and can prevent the progression to diabetes (5) Osteoporosis of lumbar spine: Comment: 01/28/2023 Severe osteoporosis based on the lowest T-score value of -3.5 in the lumbar spine , currently on 14 Code(s): M81.0 - Age-related osteoporosis without current pathological fracture Category: Medical Plan: Endocrine clinic currently on Forteo (6) Morales's esophagus determined by biopsy: Code(s): K22.70 - Morales's esophagus without dysplasia Category: Medical Plan: On esomeprazole 40 mg daily (7) Chronic GERD: Code(s): K21.9 - Gastro-esophageal reflux disease without esophagitis Category: Medical Plan: On esomeprazole (8) History of adenomatous polyp of colon: Code(s): Z86.010 - Personal history of colon polyps Category: Medical Plan: Up-to-date his screening colonoscopy (9) Chronic insomnia: Code(s): F51.04 - Psychophysiologic insomnia Category: Medical Plan: Takes zolpidem as needed (10) Advanced directives, counseling/discussion: Code(s): Z71.89 - Other specified counseling Plan: Initiated the conversation about Advanced Directives. Advanced Directives help patients prepare for current and future decisions about their medical treatment and place of care. Discussed with patient that it is a process where a patients current condition and prognosis are reviewed, their wishes for information regarding their illness are elicited, and likely medical dilemmas are presented and options discussed. Healthcare proxy form completed today. The form can be amended as needed, reviewed yearly and make changes as needed (11) Chronic right shoulder pain: Code(s): M25.511 - Pain in right shoulder; G89.29 - Other chronic pain Category: Medical Plan: Orthopedic consult obtained Orders: Referrals Orthopedics Referral G89.29 - Other chronic pain, M25.511 - Pain in right shoulder, M77.12 - Lateral epicondylitis, left elbow
[2024-08-24 12:56] VITALS: BP 116/68; PULSE 72; TEMP 37.1; O2SAT 96; BMI 26.1
--- OUTSIDE RECORDS SUMMARY | 2024-08-24 13:01 | XMS_ITS | Clinical Summary ---
Author Organization [employer] Address [address] [place] [address] Care Team Providers Care Intellectual Property Legal Assistant Name Role Phone Unavailable Primary Care Provider [...] [facility] [address] [place] [address] Janeen Mejia from Last 3 Months Social [...] Upcoming Encounters Date Type Department Care Team ([facility] Contact Info) Description 09/06/2024 8:00 AM EDT Office Visit [facility] [address] [place] [address] Janeen Mejia Health Maintenance Due Date Last [...] Most Recently Relevant to Health Maintenance Insurance [facility]
== END 2024-08-24 13:40 | disposition home or self-care (01) ==
LOC: HO.HMCC 12:31
PROVIDERS: PCP Internal Medicine; Visit Provider Internal Medicine
DX: Z00.01 Encounter for general adult medical examination with abnormal findings (principal); M77.12 Lateral epicondylitis, left elbow; F33.41 Major depressive disorder, recurrent, in partial remission; R73.01 Impaired fasting glucose; M81.0 Age-related osteoporosis without current pathological fracture; K22.70 Barrett's esophagus without dysplasia; K21.9 Gastro-esophageal reflux disease without esophagitis; Z86.0100 Personal history of colon polyps, unspecified; F51.04 Psychophysiologic insomnia; Z71.89 Other specified counseling; M25.511 Pain in right shoulder; G89.29 Other chronic pain

== ENCOUNTER → 2024-08-24 12:30 | Outpatient (BNVA) | payer OTHER, SELFPAY | PROVIDERS: PCP Internal Medicine; Visit Provider Internal Medicine | DX: Z00.01 Encounter for general adult medical examination with abnormal findings (principal); K21.9 Gastro-esophageal reflux disease without esophagitis; M77.12 Lateral epicondylitis, left elbow; F33.41 Major depressive disorder, recurrent, in partial remission; R73.01 Impaired fasting glucose; M81.0 Age-related osteoporosis without current pathological fracture; K22.70 Barrett's esophagus without dysplasia; F51.04 Psychophysiologic insomnia; M25.511 Pain in right shoulder; G89.29 Other chronic pain; Z71.89 Other specified counseling; Z86.0100 Personal history of colon polyps, unspecified | CPT/HCPCS: 96127; 99396 ==

== ENCOUNTER 2025-02-06 08:55 | Outpatient (REF) | payer OTHER, SELFPAY ==
--- NOTE | ~2025-02-06 | MM_ITS ---
EXAMINATION: MM SCREENING DIGITAL BREAST TOMOSYNTHESIS, BILATERAL CLINICAL INFORMATION: Screening. Asymptomatic. COMPARISON: Mammography: Comparison is made with available priors TECHNIQUE: Digital breast mammography with tomosynthesis is performed in both the craniocaudal and mediolateral oblique views along with computer-aided detection (CAD). FINDINGS: The breasts are heterogeneously dense, which may obscure small masses. There are no significant masses, abnormal calcifications, or other abnormalities. MM/MM tomosynthesis screening BI IMPRESSION: No mammographic evidence of malignancy. ASSESSMENT: BI-RADS Category 1: Negative RECOMMENDATION: Routine annual mammography screening. 1 year F/U This examination should not preclude the clinical evaluation of a suspicious palpable abnormality. This patient's information was entered into a reminder system with a target due date for their next mammogram. Electronically signed by: Maribel Miranda DO 02/07/2025 11:06 AM RIKI
== END 2025-02-06 08:56 | disposition home or self-care (01) ==
LOC: HO.MAMMO 08:55
PROVIDERS: Absent Provider Obstetrics & Gynecology; PCP Internal Medicine; Visit Provider Internal Medicine
DX: Z12.31 Encounter for screening mammogram for malignant neoplasm of breast (principal)
CPT/HCPCS: 77063; 77067

== ENCOUNTER → 2025-02-06 09:00 | Outpatient (BNV) | payer OTHER, SELFPAY | PROVIDERS: Absent Provider Obstetrics & Gynecology; PCP Internal Medicine; Visit Provider Internal Medicine | DX: Z12.31 Encounter for screening mammogram for malignant neoplasm of breast (principal) | CPT/HCPCS: 77063; 77067 ==